=== PATIENT | female | born 1950 | race Caucasian/White ===

== ENCOUNTER 2020-02-11 10:05 | Outpatient (REF) | payer MEDICARE, MEDICAID, SELFPAY | END 2020-02-11 10:06 | disposition home or self-care (01) | LOC: HO.HMGCLDS 10:05 | PROVIDERS: PCP Internal Medicine; Visit Provider Internal Medicine | DX: Z20.828 Contact with and (suspected) exposure to other viral communicable diseases (principal) | CPT/HCPCS: 36415; 87635 ==

== ENCOUNTER 2020-02-21 07:47 | Day surgery (SDC) | payer MEDICARE, MEDICAID, SELFPAY ==
[2020-02-14 14:13] VITALS: BMI 23.8
--- NOTE | 2020-02-19 09:39 | HO.ANESPROP2 ---
Documented by User: Hannahher Sullivanney 02/19/20 09:43 HPI - Anesthesia Eval Consult details Narrative: 69yo F for colonoscopy PMFSH Past Medical History Medical History Anxiety Bronchitis with flu Depression Fibrocystic breast disease GERD (gastroesophageal reflux disease) History of chronic rhinitis Hx of irritable bowel syndrome Hx of osteopenia Lumbar disc disease Neurodermatitis Osteoarthritis Panic disorder PTSD (post-traumatic stress disorder) Surgical History Surgical History H/O colonoscopy with polypectomy Hx of cholecystectomy Hx of tonsillectomy Social History Social History Smoking Status: Never smoker Second Hand Smoke Exposure: No Use of substances other than those prescribed or required for medical reasons: No Advance Directives: No Advance Directives Information Provided: No Advance Directives on File: No Recently lost weight without trying: No Meds Allergies Allergy/AdvReac Type Severity Reaction Status Date / Time alcohol [ALCOHOL] Allergy Unknown ON SKIN - Verified 02/21/20 08:29 HIVES , SWELLING gluten [GLUTEN] Allergy Unknown HIVES Verified 02/21/20 08:29 latex [LATEX] Allergy Unknown HIVES,SWELL Verified 02/21/20 08:29 ING mold Allergy Unknown HIVES Verified 02/21/20 08:29 yeast, dried [YEAST] Allergy Unknown HIVES Verified 02/21/20 08:29 dairy Allergy Unknown Hives Uncoded 02/14/20 13:25 smoked meat Allergy Unknown Hives Uncoded 02/14/20 13:25 Home Medications Medication Instructions Recorded Confirmed Type clonazepam 1 tab PO NEEDED 02/14/20 02/21/20 History famotidine 1 tab PO NEEDED 02/14/20 02/21/20 History zolpidem 1 tab PO BEDTIME PRN 02/14/20 02/14/20 History Exam Exam Date and Time: February 19, 2020 0939 Height,Weight and Vital Signs: Height 5 ft 1.25 in Weight 57.606 kg Pertinent Lab Results Pertinent Lab Results: Laboratory Tests 12/24/19 12/24/19 09:10 09:10 WBC 5.4 Hgb 13.7 Hct 41.9 Plt Count 352 Sodium 141 Potassium 4.1 Chloride 107 BUN 15 Creatinine 0.80 Assessment and Plan Assessment Anesthesia Assessment: Chart Reviewed Documented by User: oNman Flood MD 02/21/20 09:16 PMFSH Past Medical History Medical History Anxiety Bronchitis with flu Depression Fibrocystic breast disease GERD (gastroesophageal reflux disease) History of chronic rhinitis Hx of irritable bowel syndrome Hx of osteopenia Lumbar disc disease Neurodermatitis Osteoarthritis Panic disorder PTSD (post-traumatic stress disorder) Surgical History Surgical History H/O colonoscopy with polypectomy Hx of cholecystectomy Hx of tonsillectomy Social History Social History Smoking Status: Never smoker Second Hand Smoke Exposure: No Use of substances other than those prescribed or required for medical reasons: No Advance Directives: No Advance Directives Information Provided: No Advance Directives on File: No Recently lost weight without trying: No Meds Allergies Allergy/AdvReac Type Severity Reaction Status Date / Time alcohol [ALCOHOL] Allergy Unknown ON SKIN - Verified 02/21/20 08:29 HIVES , SWELLING gluten [GLUTEN] Allergy Unknown HIVES Verified 02/21/20 08:29 latex [LATEX] Allergy Unknown HIVES,SWELL Verified 02/21/20 08:29 ING mold Allergy Unknown HIVES Verified 02/21/20 08:29 yeast, dried [YEAST] Allergy Unknown HIVES Verified 02/21/20 08:29 dairy Allergy Unknown Hives Uncoded 02/14/20 13:25 smoked meat Allergy Unknown Hives Uncoded 02/14/20 13:25 Home Medications Medication Instructions Recorded Confirmed Type clonazepam 1 tab PO NEEDED 02/14/20 02/21/20 History famotidine 1 tab PO NEEDED 02/14/20 02/21/20 History zolpidem 1 tab PO BEDTIME PRN 02/14/20 02/14/20 History Exam Airway Mallampati Class: I TM Dist: >3cm Neck ROM: Full Loose/Missing/Broken Teeth: Yes and Lower Heart: rrr Lungs: nl Assessment and Plan Assessment Anesthesia Assessment: Anesthesia Plan Discussed and Chart Reviewed Final Anesthetic Review NPO: Yes ASA Class: III Final Preanesthetic Review: No Changes in Pt Med Stat, Meds/Allgs Chart Reviewed, Consent Obtained/Reviewed and Anes Risks/Benef Reviewed Patient Risk: Intermediate Procedure Risk: Low Anesthetic Plan Anesthetic Plan: MAC: (Hx of panic d/o but describes side effects related to likely midazolam usage with last anesthetic for colonscopy. Plan for propofol only today) and Epidural Disposition: Standard PACU
[2020-02-21] MEDS: Lactated Ringers 1,000 ML 100 ML IVCONT (08:32)
[2020-02-21 08:33] VITALS: BP 145/72; PULSE 54; RESP 16; TEMP 36.3; O2SAT 98
[2020-02-21 08:36] VITALS: BMI 23.8
--- NOTE | 2020-02-21 09:21 | P.HPSUR_ITS ---
Pre-Procedural Eval Section A The patient is an INPATIENT: No The History & Physical has been completed within 30 days and I have reviewed it.: No Section B Chief Complaint: history of Polyp Details of Present Illness: Colon cancer screening Hx of Tubular adenoma Mother with hx of polyps. Relevant Family History (Specify if Yes): Yes Relevant Social History: None Present Medications: see Short Stay Collaborative assessment Medical History: Significant History (Anxiety, GERD, IBS) History of Previous Operations: Relevant previous surgery/procedure and date(s) (Cholecystectomy, [place]-2015: cecal tubular adenoma) Allergies: Allergies Allergy/AdvReac Type Severity Reaction Status Date / Time alcohol [ALCOHOL] Allergy Unknown ON SKIN - Verified 02/21/20 08:29 HIVES , SWELLING gluten [GLUTEN] Allergy Unknown HIVES Verified 02/21/20 08:29 latex [LATEX] Allergy Unknown HIVES,SWELL Verified 02/21/20 08:29 ING mold Allergy Unknown HIVES Verified 02/21/20 08:29 yeast, dried [YEAST] Allergy Unknown HIVES Verified 02/21/20 08:29 dairy Allergy Unknown Hives Uncoded 02/14/20 13:25 smoked meat Allergy Unknown Hives Uncoded 02/14/20 13:25 Review of Systems Sugical H&P ROS: Negative: Constitution, Cardiovascular and Respiratory and Yes, Specify: Psychiatric and Gastrointestinal (GERD,IBS) Exam Surgical H&P Exam: Normal: HEENT, Normal: Heart, Normal: Lungs, Normal: Extremities and Normal: Abdomen Plan Diagnosis/Plan: Unchanged Patient has been examined and remains a candidate for the planned procedure-YES
[2020-02-21 10:05] VITALS: BP 130/97; PULSE 85; RESP 18; TEMP 36.1; O2SAT 97
[2020-02-21 10:20] VITALS: BP 133/60; PULSE 73; RESP 18; O2SAT 100
--- NOTE | 2020-02-21 10:40 | HO.POSTANES ---
Post Anesthesia Evaluation Post Anesthesia Evaluation Vital Signs: Vital Signs Temp Pulse Resp BP Pulse Ox 02/21/20 10:20 73 18 133/60 100 02/21/20 10:05 97 F 85 18 130/97 H 97 02/21/20 08:33 97.4 F 54 16 145/72 H 98 Anesthesia: Monitored Mental Status: Awake Pain Control: Satisfactory Nausea/Vomiting: None Hydration: Adequate Anesthesia-Related Issues: No Anes. Related Issues
--- NOTE | 2020-02-21 20:29 | OP_ITS ---
SURGEON: Halle James MD PROCEDURE PERFORMED: Colonoscopy. ESTIMATED BLOOD LOSS: No blood loss. COMPLICATIONS: No complications. ANESTHESIA: Monitored. ANESTHESIOLOGIST: Dr. Flood. ASSISTANTS: No assistant to the vice president. SPECIMENS: No specimens removed. PREOPERATIVE DIAGNOSES: History of tubular adenoma. Mother with history of polyps. POSTOPERATIVE DIAGNOSES: Internal hemorrhoids 1+, History of tubular adenoma. AGED OR DISABLED CARE WORKER: Dr. James. FINDINGS: Digital rectal exam revealed no specific lesion; adequate sphincter tone. Video colonoscope was introduced without difficulty. It was navigated into the rectosigmoid and sigmoid. There was mild redundancy and a suggestion prolapse the region of the rectosigmoid and sigmoid. Scope was slowly moved through this area on up through descending, transverse, ascending colon down into the cecal cap. Appendiceal orifice was seen. Ileocecal valve was well seen. Prep on the left side was good. As we passed through the region of the hepatic flexure, there was more sticky bilious residue left, requiring moderate amount of flushing and suctioning. There were no polyps found either in the cecum or ascending colon. The scope slowly withdrawn. Good rotational views. No additional lesions seen on the left side. Anorectal verge was clear. There were 1+ internal hemorrhoids in the anal canal. PLAN AND CURRENT RECOMMENDATIONS: Repeat asymptomatic screening in a patient with history of tubular adenomas and a positive family history will remain at 5 years. GRAFT OR IMPLANTS: No grafts or implants. CONDITION: Postprocedure, stable. Halle James MD MEN/MODL / [id number] MTDD
== END 2020-02-21 10:51 | disposition home or self-care (01) ==
PROVIDERS: Internal Medicine Gastroenterology; PCP Internal Medicine; Visit Provider Internal Medicine
PROC: 0DJD8ZZ Inspection of Lower Intestinal Tract, Via Natural or Artificial Opening Endoscopic (ICD-10-PCS; CPT 45378; principal; 2020-02-21 09:10)
DX: Z12.11 Encounter for screening for malignant neoplasm of colon (principal); Z86.010 Personal history of colon polyps; Z83.71 Family history of colonic polyps; K64.8 Other hemorrhoids; K21.9 Gastro-esophageal reflux disease without esophagitis; K58.9 Irritable bowel syndrome, unspecified; F32.9 Major depressive disorder, single episode, unspecified; F43.10 Post-traumatic stress disorder, unspecified; F41.0 Panic disorder [episodic paroxysmal anxiety]; M19.90 Unspecified osteoarthritis, unspecified site; L28.0 Lichen simplex chronicus; Z90.49 Acquired absence of other specified parts of digestive tract; Z91.040 Latex allergy status; Z91.02 Food additives allergy status; Z91.011 Allergy to milk products; Z91.018 Allergy to other foods
CPT/HCPCS: G0105

== ENCOUNTER → 2020-03-19 11:20 | Outpatient (BNVA) | payer MEDICARE, MEDICAID, SELFPAY | PROVIDERS: PCP Internal Medicine; Referring Provider Internal Medicine; Visit Provider Internal Medicine Gastroenterology | DX: R13.10 Dysphagia, unspecified (principal); R11.10 Vomiting, unspecified; Z98.890 Other specified postprocedural states | CPT/HCPCS: 99212 ==

== ENCOUNTER 2020-03-24 09:14 | Outpatient (REF) | payer MEDICARE, MEDICAID, SELFPAY ==
--- NOTE | 2020-03-24 09:15 | FL_ITS ---
EXAMINATION: FL BARIUM SWALLOW CLINICAL INFORMATION: Vomiting. COMPARISON: Report from 02/08/2007 TECHNIQUE: Barium swallow examination is performed using fluoroscopic evaluation in addition to multiple fluoroscopic spot views. The patient is imaged both upright and prone and using both thick and thin sulfate along with effervescent granules. A 13 mm barium tablet was also utilized. Fluoroscopy time: 1.2 minutes DAP: 3.885 Gycm2 Images: 84 FINDINGS: There is normal oral bolus control and transfer. Normal posterior tilt of the epiglottis with elevation of the hyoid. No cricopharyngeal abnormality. The esophagus was normal in course, caliber, and contour. There was focal narrowing seen at the region of the gastroesophageal junction which causes delayed passage of the 13 mm barium tablet. There was otherwise normal distensibility with no fixed segment of narrowing. No focal mucosal abnormality was identified. No significant esophageal dysmotility was observed. Contrast passed freely across the gastroesophageal junction into the stomach. Small hiatal hernia. Mild gastroesophageal reflux was observed. FL/FL barium swallow IMPRESSION: Mild gastroesophageal reflux with small hiatal hernia. There is focal narrowing at the gastroesophageal junction which cause delayed passage of a 13 mm barium tablet. This persists throughout the examination.
== END 2020-03-24 09:15 | disposition home or self-care (01) ==
LOC: HO.XRAY 09:14
PROVIDERS: PCP Internal Medicine; Visit Provider Internal Medicine Gastroenterology
DX: R11.10 Vomiting, unspecified (principal); R13.10 Dysphagia, unspecified
CPT/HCPCS: 74220

== ENCOUNTER → 2020-04-09 13:44 | Outpatient (BNVA) | payer MEDICARE, MEDICAID, SELFPAY | PROVIDERS: PCP Internal Medicine; Visit Provider Internal Medicine Gastroenterology | DX: R13.10 Dysphagia, unspecified (principal); R11.0 Nausea; Z79.899 Other long term (current) drug therapy | CPT/HCPCS: Q3014 ==

== ENCOUNTER → 2020-06-09 14:36 | Outpatient (BNVA) | payer MEDICARE, MEDICAID, SELFPAY | PROVIDERS: PCP Internal Medicine; Visit Provider Internal Medicine Gastroenterology | CPT/HCPCS: Q3014 ==

== ENCOUNTER 2020-06-17 09:18 | Day surgery (SDC) | payer MEDICARE, MEDICAID, SELFPAY ==
--- NOTE | 2020-06-16 09:47 | HO.ANESPROP2 ---
Documented by User: Hannah Dias 06/16/20 09:48 HPI - Anesthesia Eval Consult details Narrative: 70yo F for Upper Endoscopy PMFSH Active Problems Active Problems: All Active Problems (Updated 06/09/20 @ 15:11 by John Sabillon MD) GERD (gastroesophageal reflux disease) (Acute) Irritable bowel syndrome with constipation (Acute) Tubular adenoma of colon (Acute) Regurgitation of stomach contents (Acute) Dysphagia (Acute) Past Medical History Medical History Anxiety Bronchitis with flu Depression Dysphagia Dysphagia Fibrocystic breast disease GERD (gastroesophageal reflux disease) History of chronic rhinitis Hx of irritable bowel syndrome Hx of osteopenia Lumbar disc disease Neurodermatitis Osteoarthritis Panic disorder PTSD (post-traumatic stress disorder) Tubular adenoma of colon Family History Family History Father Alcoholic Arthritis Mother Schizophrenia Heart failure Brother Hep C w/ coma, chronic Drug addict Cancer Surgical History Surgical History H/O colonoscopy with polypectomy Hx of cholecystectomy Hx of tonsillectomy Social History Social History Alcohol intake: current Alcohol intake frequency: holidays/special occasions only Smoking Status: Never smoker Second Hand Smoke Exposure: No Advance Directives: No Advance Directives Information Provided: Yes Meds Allergies Allergy/AdvReac Type Severity Reaction Status Date / Time alcohol [ALCOHOL] Allergy Unknown ON SKIN - Verified 06/09/20 14:37 HIVES , SWELLING gluten [GLUTEN] Allergy Unknown HIVES Verified 06/09/20 14:37 latex [LATEX] Allergy Unknown HIVES,SWELL Verified 06/09/20 14:37 ING mold Allergy Unknown HIVES Verified 06/09/20 14:37 yeast, dried [YEAST] Allergy Unknown HIVES Verified 06/09/20 14:37 dairy Allergy Unknown Hives Uncoded 02/14/20 13:25 smoked meat Allergy Unknown Hives Uncoded 02/14/20 13:25 Home Medications Medication Instructions Recorded Confirmed Type clonazepam 1 tab PO NEEDED 02/14/20 06/09/20 History famotidine 1 tab PO NEEDED 02/14/20 06/09/20 History zolpidem 1 tab PO BEDTIME PRN 02/14/20 06/09/20 History Exam Exam Date and Time: June 16, 202033 Assessment and Plan Assessment Anesthesia Assessment: Chart Reviewed Documented by User: Arlene Lundberg 06/17/20 10:31 PMFSH Past Medical History Medical History Anxiety Bronchitis with flu Depression Dysphagia Dysphagia Fibrocystic breast disease GERD (gastroesophageal reflux disease) History of chronic rhinitis Hx of irritable bowel syndrome Hx of osteopenia Lumbar disc disease Neurodermatitis Osteoarthritis Panic disorder PTSD (post-traumatic stress disorder) Tubular adenoma of colon Family History Family History Father Alcoholic Arthritis Mother Schizophrenia Heart failure Brother Hep C w/ coma, chronic Drug addict Cancer Surgical History Surgical History H/O colonoscopy with polypectomy Hx of cholecystectomy Hx of tonsillectomy Social History Social History Alcohol intake: current Alcohol intake frequency: holidays/special occasions only Smoking Status: Never smoker Second Hand Smoke Exposure: No Advance Directives: No Advance Directives Information Provided: Yes Meds Allergies Allergy/AdvReac Type Severity Reaction Status Date / Time alcohol [ALCOHOL] Allergy Unknown ON SKIN - Verified 06/09/20 14:37 HIVES , SWELLING gluten [GLUTEN] Allergy Unknown HIVES Verified 06/09/20 14:37 latex [LATEX] Allergy Unknown HIVES,SWELL Verified 06/09/20 14:37 ING mold Allergy Unknown HIVES Verified 06/09/20 14:37 yeast, dried [YEAST] Allergy Unknown HIVES Verified 06/09/20 14:37 dairy Allergy Unknown Hives Uncoded 02/14/20 13:25 smoked meat Allergy Unknown Hives Uncoded 02/14/20 13:25 Home Medications Medication Instructions Recorded Confirmed Type clonazepam 1 tab PO NEEDED 02/14/20 06/09/20 History famotidine 1 tab PO NEEDED 02/14/20 06/09/20 History zolpidem 1 tab PO BEDTIME PRN 02/14/20 06/09/20 History Exam Airway Mallampati Class: II (Small mouth) TM Dist: >3cm Neck ROM: Full Heart: RRR Lungs: CTA Assessment and Plan Assessment Anesthesia Assessment: Anesthesia Plan Discussed and Chart Reviewed Final Anesthetic Review NPO: Yes ASA Class: II Final Preanesthetic Review: Meds/Allgs Chart Reviewed, Consent Obtained/Reviewed and Anes Risks/Benef Reviewed Patient Risk: Low Procedure Risk: Intermediate Anesthetic Plan Anesthetic Plan: MAC: Disposition: Standard PACU
[2020-06-17 10:37] VITALS: BP 184/92; PULSE 51; RESP 16; TEMP 36.2; O2SAT 98; BMI 23.7
[2020-06-17] MEDS: Lactated Ringers 1,000 ML 100 ML IVCONT (10:44)
--- NOTE | 2020-06-17 11:26 | MHC.SHP ---
Pre-Procedural Eval Section B Chief Complaint: dysphagia Allergies: Allergies Allergy/AdvReac Type Severity Reaction Status Date / Time alcohol [ALCOHOL] Allergy Unknown ON SKIN - Verified 06/09/20 14:37 HIVES , SWELLING gluten [GLUTEN] Allergy Unknown HIVES Verified 06/09/20 14:37 latex [LATEX] Allergy Unknown HIVES,SWELL Verified 06/09/20 14:37 ING mold Allergy Unknown HIVES Verified 06/09/20 14:37 yeast, dried [YEAST] Allergy Unknown HIVES Verified 06/09/20 14:37 dairy Allergy Unknown Hives Uncoded 02/14/20 13:25 smoked meat Allergy Unknown Hives Uncoded 02/14/20 13:25 Plan I have reviewed the history and physical and performed a pertinent (PATIENT SAYS MOUTH IS DRY IN am physical examination on my patient. No changes have occurred unless specified.YES--
[2020-06-17 11:48] VITALS: BP 129/58; PULSE 52; RESP 18; TEMP 36.3; O2SAT 100
--- NOTE | 2020-06-17 11:57 | PM.PROC ---
Brief Operative Note Date of procedure: 06/17/20 Pre-op diagnosis: DYSPHAGIA Post-op diagnosis: other (SMALL HIATAL HERNIA, fOCAL HEMORRHAGIC GASTRITIS (BILE PRESENT IN STOMACH)) Procedure: EGD WITH BX FINDINGS: SCOPE PASSED EASILY. VOCAL CORDS CLEAR, AC-NORMAL ESOPH SUGGESTION TERTIARY CONTRACTIONS GE JUNCTION-CLEAR--SMALL HIATAL HERNIA STOMACH: SPOTTY COFFEE GRND FLECKING BX DONE (BILE PRESENT) DUODENAL BULB/DUODENUM:--? VILLOUS BLUNTING--BX DONE Anesthesia: MAC (MD CAMILLA) Surgeon: Halle James Estimated blood loss (mL): 5 Pathology: other (DUODENAL, GASTRIC) Condition: stable Disposition: PACU
[2020-06-17 12:05] VITALS: BP 144/80; PULSE 55; RESP 20; TEMP 36.1; O2SAT 98
== END 2020-06-17 12:43 | disposition home or self-care (01) ==
PROVIDERS: PCP Internal Medicine; Visit Provider Internal Medicine Gastroenterology
PROC: 0DJ08ZZ Inspection of Upper Intestinal Tract, Via Natural or Artificial Opening Endoscopic (ICD-10-PCS; CPT 43235; principal; 2020-06-17 11:30)
DX: R13.10 Dysphagia, unspecified (principal); K44.9 Diaphragmatic hernia without obstruction or gangrene; Z87.19 Personal history of other diseases of the digestive system
CPT/HCPCS: 43239; 88305; 88342

== ENCOUNTER 2020-06-23 14:08 | Outpatient (REF) | payer MEDICARE, MEDICAID, SELFPAY ==
--- NOTE | ~2020-06-23 | MM_ITS ---
EXAMINATION: MM SCREENING DIGITAL BREAST TOMOSYNTHESIS, BILATERAL CLINICAL INFORMATION: Screening. Asymptomatic. The lifetime risk of breast cancer based on the Tyrer-Cuzick Model is 5%. COMPARISON: Mammography: 06/13/2019, 04/21/2018, 04/19/2017 TECHNIQUE: Digital breast tomosynthesis is performed in both the craniocaudal and mediolateral oblique views along with computer-aided detection (CAD). Synthesized 2D images are generated from the tomosynthesis. FINDINGS: There are scattered areas of fibroglandular density (ACR BI-RADS breast composition Category b). There are no significant masses, abnormal calcifications, or other abnormalities. Again, there is dermal lesion overlying the lower outer right breast. Intramammary node again seen outer left breast and outer right breast. MM/MM tomosynthesis screening BI IMPRESSION: No mammographic evidence of malignancy. ASSESSMENT: BI-RADS 2: Benign RECOMMENDATION: Routine annual mammography screening. This patient's information was entered into a reminder system with a target due date for their next mammogram.
== END 2020-06-23 14:09 | disposition home or self-care (01) ==
LOC: HO.MAMMO 14:08
PROVIDERS: PCP Internal Medicine; Visit Provider Internal Medicine
DX: Z12.31 Encounter for screening mammogram for malignant neoplasm of breast (principal)
CPT/HCPCS: 77063; 77067

== ENCOUNTER → 2020-07-03 12:45 | Outpatient (BNVA) | payer MEDICARE, MEDICAID, SELFPAY | PROVIDERS: PCP Internal Medicine; Visit Provider Internal Medicine Gastroenterology | CPT/HCPCS: Q3014 ==

== ENCOUNTER 2020-07-07 08:18 | Outpatient (REF) | payer MEDICARE, MEDICAID, SELFPAY ==
[2020-07-07 09:55] LABS: Alanine Aminotransferase 15 U/L (0-31); Albumin Level 4.2 g/dL (3.5-5.0); Alkaline Phosphatase 53 U/L (39-117); Aspartate Amino Transferase 24 U/L (5-31); Bilirubin Direct 0.2 mg/dL (0.0-0.5); Bilirubin Total 0.6 mg/dL (0.0-1.0); Cholesterol 220 mg/dL; HDL Cholesterol 81 mg/dL; LDL Cholesterol Calculated 127 mg/dl; Total Protein 7.2 g/dL (6.5-8.0); Triglycerides 61 mg/dL
== END 2020-07-07 08:19 | disposition home or self-care (01) ==
LOC: HO.LAB 08:18
PROVIDERS: PCP Internal Medicine; Visit Provider Internal Medicine
DX: F31.9 Bipolar disorder, unspecified (principal); G47.00 Insomnia, unspecified; K58.9 Irritable bowel syndrome, unspecified; E78.00 Pure hypercholesterolemia, unspecified; E55.9 Vitamin D deficiency, unspecified
CPT/HCPCS: 36415; 80061; 80076

== ENCOUNTER 2020-07-11 08:06 | Outpatient (REF) | payer MEDICARE, MEDICAID, SELFPAY | END 2020-07-11 08:07 | disposition home or self-care (01) | LOC: HO.LAB 08:06 | PROVIDERS: PCP Internal Medicine; Visit Provider Internal Medicine | DX: Z20.822 Contact with and (suspected) exposure to COVID-19 (principal) | CPT/HCPCS: 36415; C9803; U0003; U0005 ==

== ENCOUNTER → 2020-09-04 09:18 | Outpatient (BNVA) | payer MEDICARE, MEDICAID, SELFPAY | PROVIDERS: PCP Internal Medicine; Visit Provider Nurse Practitioner | DX: Z13.89 Encounter for screening for other disorder (principal) | CPT/HCPCS: Q3014 ==

== ENCOUNTER 2020-09-13 10:01 | Outpatient (REF) | payer MEDICARE, MEDICAID, SELFPAY ==
[2020-09-13 14:00] LABS: MANUAL DIFF FLAG NO
[2020-09-13 14:01] LABS: Glucose Urine UA NEG (NEG); Leukocyte Esterase Urine NEG (NEG); Nitrite Urine NEG (NEG); Specific Gravity - Urine 1.015 (1.005-1.025); Urine Blood NEG (NEG); Urine Ketones NEG (NEG); Urine Protein NEG (NEG-TRACE)
[2020-09-13 14:02] LABS: Appearance Urine CLEAR; Color Urine YELLOW
[2020-09-13 14:03] LABS: Basophils Absolute Auto 0.1 X10*3/uL (0.0-0.2); Eosinophils Absolute Auto 0.1 X10*3/uL (0.0-0.4); Eosinophils Percent Auto 1.2 % (0-4); Hematocrit 41.4 % (37-47); Hemoglobin 13.3 g/dl (12.0-16.0); Imm Gran Abs Auto 0.02 X10*3/uL (0.00-0.03); Imm Gran Pct Auto 0.3 % (0.0-0.4); Lymphocytes Absolute Auto 2.2 X10*3/uL (1.2-4.9); Lymphocytes Percent Auto 36.8 % (20-40); Mean Corpuscular HGB Conc 32.1 g/dl (31.0-35.0); Mean Corpuscular Hemoglobin 30.1 pg (27.0-33.0); Mean Corpuscular Volume 93.7 fL (80-98); Mean Platelet Volume 10.9 fL (9.4-12.3); Monocytes Absolute Auto 0.5 X10*3/uL (0.1-1.2); Monocytes Percent Auto 7.8 % (2-11); Neutrophils Absolute Auto 3.1 X10*3/uL (2.0-8.3); Neutrophils Percent Auto 52.9 % (45-73); Platelet Count 333 X10*3/uL (160-400); Red Blood Count 4.42 X10*6/uL (4.20-5.50); Red Cell Distribution Width 12.8 % (11.0-16.0); White Blood Count 5.9 X10*3/uL (4.8-10.8)
[2020-09-13 14:16] LABS: RBC Urine 0-2 /HPF (0); WBC Urine 0 /HPF (0-4)
[2020-09-13 14:24] LABS: Alanine Aminotransferase 16 U/L (0-31); Albumin Level 4.2 g/dL (3.5-5.0); Alkaline Phosphatase 61 U/L (39-117); Anion Gap 11 (12-20); Aspartate Amino Transferase 23 U/L (5-31); Bilirubin Total 0.5 mg/dL (0.0-1.0); Blood Urea Nitrogen 17 mg/dL (9-16); Calcium 9.4 mg/dL (8.4-10.2); Carbon Dioxide 29 mmol/L (22-29); Chloride 104 mmol/L (96-108); Estimated Glomerular Filt Rate > 60; Glucose Random 78 mg/dL (60-115); Potassium 4.1 mmol/L (3.3-5.1); Sodium 140 mmol/L (135-145); Total Protein 7.4 g/dL (6.5-8.0)
[2020-09-13 14:44] LABS: Thyroid Stimulating Hormone 1.81 uIU/mL (0.32-4.0)
[2020-09-15 09:44] LABS: Vitamin B12 508 pg/mL (200-900)
== END 2020-09-13 10:02 | disposition home or self-care (01) ==
LOC: HO.LAB 10:01
PROVIDERS: PCP Internal Medicine; Visit Provider Internal Medicine
DX: R42 Dizziness and giddiness (principal)
CPT/HCPCS: 36415; 80053; 81001; 82607; 82746; 84443; 85025

== ENCOUNTER → 2020-11-04 09:43 | Outpatient (BNVA) | payer MEDICARE, MEDICAID, SELFPAY | PROVIDERS: PCP Internal Medicine; Visit Provider Nurse Practitioner | CPT/HCPCS: Q3014 ==

== ENCOUNTER 2020-12-03 10:47 | Outpatient (REF) | payer MEDICARE, MEDICAID, SELFPAY ==
--- NOTE | ~2020-12-03 | CT_ITS ---
EXAMINATION: CT HEAD WITHOUT CONTRAST CLINICAL INFORMATION: Encephalopathy. COMPARISON: None TECHNIQUE: Contiguous axial imaging was performed from the skull base to vertex without intravenous administration of contrast. This CT examination was performed using dose optimization techniques as appropriate, variously including the following: *Automated exposure control *Adjustment of mA and/or kV according to patient size (this includes techniques or standardized protocols for targeted exams where dose is matched to indication/reason for exam; i.e. extremities or head) *Use of iterative reconstruction technique DLP: 675 mGy-cm FINDINGS: There is no evidence of acute intracranial hemorrhage or territorial infarction. No abnormal mass effect or midline shift is seen. Tatum to white matter differentiation is well preserved. No extra-axial fluid collections are identified. The ventricles are symmetrical and normal size. The cortical sulci are normal. The osseous structures and soft tissues are normal. The mastoid air cells and visualized portions of the paranasal sinuses are well aerated. CT/CT head/brain wo con IMPRESSION: No acute intracranial process seen..
== END 2020-12-03 10:48 | disposition home or self-care (01) ==
LOC: HO.CT 10:47
PROVIDERS: Visit Provider Psychiatry & Neurology Neurology
DX: G93.40 Encephalopathy, unspecified (principal)
CPT/HCPCS: 70450

== ENCOUNTER → 2020-12-15 15:04 | Outpatient (BNVA) | payer MEDICARE, MEDICAID, SELFPAY | PROVIDERS: PCP Internal Medicine; Visit Provider Nurse Practitioner | DX: K21.9 Gastro-esophageal reflux disease without esophagitis (principal); K58.2 Mixed irritable bowel syndrome; D12.6 Benign neoplasm of colon, unspecified; R13.10 Dysphagia, unspecified; R11.10 Vomiting, unspecified | CPT/HCPCS: Q3014 ==

== ENCOUNTER → 2021-01-19 09:17 | Outpatient (BNVA) | payer MEDICARE, MEDICAID, SELFPAY | PROVIDERS: PCP Internal Medicine; Visit Provider Nurse Practitioner | CPT/HCPCS: Q3014 ==

== ENCOUNTER 2021-01-20 10:43 | Outpatient (REF) | payer MEDICARE, MEDICAID, SELFPAY ==
--- NOTE | ~2021-01-20 | MM_ITS ---
EXAMINATION: BONE DENSITOMETRY CLINICAL INDICATION: Other specified disorders of bone density and structure. COMPARISON: None (current study represents initial baseline exam). TECHNIQUE: Using a [employer] DXA System (software version: 13.1) manufactured by [employer], dual-energy x-ray absorptiometry was performed of the lumbar spine and left hip. The images are of good technical quality. Summary results are attached. FINDINGS: AP SPINE L1-L4: BMD 1.040 g/cm2, Z-score 0.7, T-score -1.2, osteopenia. LEFT FEMUR, NECK: BMD 0.680 g/cm2, Z-score -0.7, T-score -2.6, osteoporosis. LEFT FEMUR, TOTAL: BMD 0.700 g/cm2, Z-score -0.8, T-score -2.4, osteopenia. IDENTIFIED RISK FACTORS: Menopause, osteoporosis. HISTORY OF FRACTURE: None listed. MEDICATIONS: Vitamin D. MM/XR DEXA axial skeleton IMPRESSION: 1. DIAGNOSIS: Osteoporosis based on the lowest T-score value of -2.6 in the femoral neck applying World Health Organization criteria. 2. 10-YEAR FRACTURE RISK PREDICTION, FRAX: Major osteoporotic fracture (clinical spine, forearm, hip or shoulder) 16.3%. Hip fracture 4.7%. 3. Treatment Recommendations: NOF guidelines recommend consideration for treatment in postmenopausal women and men age 50 and older presenting with the following: -A hip or vertebral (clinical or morphometric) fracture. -T-score less than or equal to -2.5 at the femoral neck or spine after appropriate evaluation to exclude secondary causes. -Low bone mass at the hip or spine and a 10-year fracture probability by FRAX of greater than or equal to 3% for hip fracture or greater than or equal to 20% for major osteoporotic fracture based on the [place] adapted WHO algorithm. 4. Other Recommendations: All treatment decisions require clinical judgment and consideration of individual patient factors, including patient preferences, comorbidities, previous drug use, risk factors not captured in the FRAX model (e.g. frailty, falls, vitamin D deficiency, increased bone turnover, interval significant decline in bone density) and possible under or overestimation of fracture risk by FRAX. Additional medical evaluation for secondary cause of low bone mineral density may be appropriate. FUTURE SCAN RECOMMENDATION: People with diagnosed cases of osteoporosis or at high risk for fracture should have regular bone mineral density tests. For patients eligible for Medicare, routine testing is allowed once every 2 years. The testing frequency can be increased to one year for patients who have rapidly progressing disease, those who are receiving or discontinuing medical therapy to restore bone mass, or have additional risk factors.
== END 2021-01-20 10:44 | disposition home or self-care (01) ==
LOC: HO.MAMMO 10:43
PROVIDERS: PCP Internal Medicine; Visit Provider Internal Medicine
DX: Z13.820 Encounter for screening for osteoporosis (principal); Z78.0 Asymptomatic menopausal state; M85.80 Other specified disorders of bone density and structure, unspecified site; Z79.899 Other long term (current) drug therapy
CPT/HCPCS: 77080

== ENCOUNTER 2021-01-22 18:09 | Emergency (ER) | payer MEDICARE, MEDICAID, SELFPAY ==
--- NOTE | ~2021-01-22 | XR_ITS ---
EXAMINATION: XR WRIST, RIGHT CLINICAL INFORMATION: Posterior wrist COMPARISON: None TECHNIQUE: PA, lateral, oblique, and scaphoid views of the right wrist. FINDINGS: The bones and soft tissues are normal. No fracture. Alignment is anatomic with normal joint spaces. No erosions or abnormal soft tissue calcifications. XR/XR wrist RT 2V IMPRESSION: Normal right wrist.
[2021-01-22 18:30] VITALS: BP 190/87; PULSE 59; RESP 18; TEMP 36.3; O2SAT 98; BMI 24.7
--- NOTE | 2021-01-22 21:23 | PC.NURSE ---
pT STATES SHE DOES NOT WANT EKG OR BLOOD WORK, ONLY TO FIND OUT IF ANYTHING IS WRONG WITH HER WRIST AND GO HOME
--- NOTE | 2021-01-22 21:34 | PC.NURSE ---
PT REFUSING HER EKG SHE STATES SHE JUST WANTS TO BE SEEN FOR HER WRIST AND WANTS TO GO HOME. PT STATES HER ELDERLY GIRFRIEND IS HAS TO PICK HER UP AND NEEDS TO TAKE HER MEDICATION.
--- NOTE | 2021-01-22 21:56 | PC.NURSE ---
PT LEFT BECAUSE HER GIRLFRIEND NEED TO GO TO BED.
== END 2021-01-22 21:58 | disposition left against medical advice (07) ==
PROVIDERS: Emergency Provider Emergency Medicine; PCP Internal Medicine
DX: M25.531 Pain in right wrist (principal)
CPT/HCPCS: 73100; 99283

== ENCOUNTER 2021-06-25 11:11 | Outpatient (REF) | payer MEDICARE, MEDICAID, SELFPAY ==
--- NOTE | ~2021-06-25 | MM_ITS ---
EXAMINATION: MM SCREENING DIGITAL BREAST TOMOSYNTHESIS, BILATERAL CLINICAL INFORMATION: Screening. Asymptomatic. The lifetime risk of breast cancer based on the Tyrer-Cuzick Model is 4%. COMPARISON: Mammography: 06/23/2020, 06/13/2019, 04/21/2018 TECHNIQUE: Digital breast tomosynthesis is performed in both the craniocaudal and mediolateral oblique views along with computer-aided detection (CAD). Synthesized 2D images are generated from the tomosynthesis. FINDINGS: There are scattered areas of fibroglandular density (ACR BI-RADS breast composition Category b). There are no significant masses, abnormal calcifications, or other abnormalities. Parenchymal pattern is similar to prior studies. There is no developing density or architectural abnormality. There are stable small intramammary nodes again noted bilateral outer breasts. The axilla and skin contours are unremarkable. No significant changes. MM/MM tomosynthesis screening BI IMPRESSION: No mammographic evidence of malignancy. ASSESSMENT: BI-RADS 2: Benign RECOMMENDATION: Routine annual mammography screening. This patient's information was entered into a reminder system with a target due date for their next mammogram.
== END 2021-06-25 11:12 | disposition home or self-care (01) ==
LOC: HO.MAMMO 11:11
PROVIDERS: PCP Internal Medicine; Visit Provider Internal Medicine
DX: Z12.31 Encounter for screening mammogram for malignant neoplasm of breast (principal)
CPT/HCPCS: 77063; 77067

== ENCOUNTER → 2021-08-28 10:18 | Outpatient (BNVA) | payer MEDICARE, MEDICAID, SELFPAY | PROVIDERS: PCP Internal Medicine; Referring Provider Internal Medicine; Visit Provider Nurse Practitioner | DX: K21.9 Gastro-esophageal reflux disease without esophagitis (principal); K58.2 Mixed irritable bowel syndrome; D12.6 Benign neoplasm of colon, unspecified | CPT/HCPCS: 99212 ==

== ENCOUNTER → 2021-11-26 11:14 | Outpatient (BNVA) | payer MEDICARE, MEDICAID, SELFPAY | PROVIDERS: PCP Internal Medicine; Visit Provider Surgery Vascular Surgery | DX: I83.11 Varicose veins of right lower extremity with inflammation (principal) | CPT/HCPCS: 99202 ==

== ENCOUNTER 2021-12-24 08:10 | Outpatient (REF) | payer MEDICARE, MEDICAID, SELFPAY ==
--- NOTE | 2021-12-24 08:13 | EMG_ITS ---
Bilateral median and ulnar motor and sensory studies were performed and bilateral radial sensory studies were performed. The patient refused to have needle examination. IMPRESSION: 1. [id number] bilateral median neuropathy across carpal tunnel. 2. Mild bilateral ulnar neuropathy across cubital tunnel. 3. Without EMG, cervical radiculopathy could not be ruled out. MD MATTHEW Meza/COLTON / [id number]
== END 2021-12-24 08:11 | disposition home or self-care (01) ==
LOC: HO.NEURO 08:10
PROVIDERS: Visit Provider Internal Medicine
DX: R20.0 Anesthesia of skin (principal)
CPT/HCPCS: 95911

== ENCOUNTER → 2021-12-29 10:14 | Outpatient (BNVA) | payer MEDICARE, MEDICAID, SELFPAY | PROVIDERS: PCP Internal Medicine; Visit Provider Psychiatry & Neurology Neurology | DX: G56.03 Carpal tunnel syndrome, bilateral upper limbs (principal); R25.9 Unspecified abnormal involuntary movements; G51.4 Facial myokymia; G47.00 Insomnia, unspecified | CPT/HCPCS: 99202 ==

== ENCOUNTER 2022-01-28 10:17 | Outpatient (REF) | payer MEDICARE, MEDICAID, SELFPAY ==
--- NOTE | ~2022-01-28 | US_ITS ---
EXAMINATION: Bilateral LOWER EXTREMITY VENOUS ULTRASOUND (Reflux Exam) CLINICAL INDICATION: COMPARISON: None. TECHNIQUE: Color flow triplex imaging and compression Doppler was performed to evaluate both the deep and the superficial systems of the lower extremities, bilaterally. To evaluate the superficial system, the examination was performed in the upright position. Color-flow Doppler ultrasound and compression ultrasound were utilized. In addition, maneuvers were utilized to demonstrate reflux. FINDINGS: RIGHT: 1. DEEP VENOUS DOPPLER ULTRASOUND: Common Femoral Vein: Compressible, normal respiratory variation and augmented flow. Femoral vein: Compressible, normal color flow and augmentation. Popliteal Vein: Compressible, normal augmentation. Deep Reflux: There is no evidence of reflux in the deep system in either the common femoral vein or the popliteal vein. There is no evidence of a East's cyst. 2. SUPERFICIAL VENOUS DOPPLER ULTRASOUND: GREAT SAPHENOUS VEIN: Saphenofemoral junction: 0.5 cm; No evidence of reflux. Proximal thigh: 0.3 cm; No evidence of reflux. Mid thigh: 0.2 cm; No evidence of reflux. Above knee: 0.2 cm; No evidence of reflux. At knee: 0.2 cm; No evidence of reflux. Below knee: 0.2 cm; No evidence of reflux. Mid calf: 0.1 cm; No evidence of reflux. Ankle: 0.2 cm; No evidence of reflux. DUPLICATED GREAT SAPHENOUS VEIN: Lateral: Saphenofemoral junction: 0.3 cm; No evidence of reflux. Mid thigh: 0.2 cm; No evidence of reflux. SMALL SAPHENOUS VEIN: Saphenopopliteal junction: 0.1 cm; No evidence of reflux. Mid calf: 0.1 cm; No evidence of reflux. Distal calf: 0.1 cm; No evidence of reflux. VEIN OF GIACOMINI: None Imaged. PERFORATORS: None Imaged VARICOSITIES: None Imaged LEFT: 1. DEEP VENOUS DOPPLER ULTRASOUND: Common Femoral Vein: Compressible, normal respiratory variation and augmented flow. Femoral vein: Compressible, normal color flow and augmentation. Popliteal Vein: Compressible, normal augmentation. Deep Reflux: There is no evidence of reflux in the deep system in either the common femoral vein or the popliteal vein. There is no evidence of a East's cyst. 2. SUPERFICIAL VENOUS DOPPLER ULTRASOUND: GREAT SAPHENOUS VEIN: Saphenofemoral junction: 0.6 cm; No evidence of reflux. Proximal thigh: 0.3 cm; No evidence of reflux. Mid thigh: 0.2 cm; No evidence of reflux. Above knee: 0.2 cm; No evidence of reflux. At knee: 0.2 cm; No evidence of reflux. Below knee: 0.2 cm; No evidence of reflux. Mid calf: 0.1 cm; No evidence of reflux. Ankle: 0.2 cm; No evidence of reflux. DUPLICATED GREAT SAPHENOUS VEIN: Lateral: Saphenofemoral junction: 0.2 cm; No evidence of reflux. Mid thigh: 0.2 cm; No evidence of reflux. SMALL SAPHENOUS VEIN: Saphenopopliteal junction: 0.2 cm; No evidence of reflux. Mid calf: 0.1 cm; No evidence of reflux. Distal calf: 0.1 cm; No evidence of reflux. VEIN OF GIACOMINI: None Imaged. PERFORATORS: None Imaged VARICOSITIES: None Imaged US/US venous duplex LE BI IMPRESSION: No evidence of reflux.
== END 2022-01-28 10:18 | disposition home or self-care (01) ==
LOC: HO.US 10:17
PROVIDERS: Visit Provider Surgery Vascular Surgery
DX: I83.11 Varicose veins of right lower extremity with inflammation (principal)
CPT/HCPCS: 93970

== ENCOUNTER → 2022-02-11 10:42 | Outpatient (BNVA) | payer MEDICARE, MEDICAID, SELFPAY | PROVIDERS: PCP Internal Medicine; Visit Provider Surgery Vascular Surgery | DX: I83.11 Varicose veins of right lower extremity with inflammation (principal) | CPT/HCPCS: 99212 ==

== ENCOUNTER 2022-02-25 08:10 | Outpatient (REF) | payer MEDICARE, MEDICAID, SELFPAY ==
[2022-02-25 09:15] LABS: Hematocrit 42.2 % (37.0-47.0); Hemoglobin 14.1 g/dl (12.0-16.0); Mean Corpuscular HGB Conc 33.4 g/dl (31.0-35.0); Mean Corpuscular Hemoglobin 30.2 pg (27.0-33.0); Mean Corpuscular Volume 90.4 fL (80.0-98.0); Mean Platelet Volume 10.3 fL (9.4-12.3); Platelet Count 322 X10*3/uL (160-400); Red Blood Count 4.67 X10*6/uL (4.20-5.50); Red Cell Distribution Width 12.7 % (11.0-16.0); White Blood Count 5.7 X10*3/uL (4.8-10.8)
[2022-02-25 10:00] LABS: Alanine Aminotransferase 20 U/L (0-31); Albumin Level 4.2 g/dL (3.5-5.0); Alkaline Phosphatase 58 U/L (39-117); Anion Gap 13 (12-20); Aspartate Amino Transferase 27 U/L (5-31); Bilirubin Total 0.3 mg/dL (0.0-1.0); Blood Urea Nitrogen 22 mg/dL (9-16); Carbon Dioxide 25 mmol/L (22-29); Chloride 106 mmol/L (96-108); Cholesterol 232 mg/dL; Estimated Glomerular Filt Rate > 60; Glucose Fasting 86 mg/dL (60-99); HDL Cholesterol 85 mg/dL; LDL Cholesterol Calculated 136 mg/dl; Magnesium 2.1 mg/dL (1.6-2.6); Potassium 4.3 mmol/L (3.3-5.1); Sodium 140 mmol/L (135-145); Total Protein 7.3 g/dL (6.5-8.0); Triglycerides 58 mg/dL
[2022-02-25 10:01] LABS: Ferritin 82 ng/mL (10-250); TSH reflex Free T4 2.03 uIU/mL (0.32-4.0); Vitamin D 25-OH Total 24.4 ng/mL (>30)
[2022-02-25 10:09] LABS: Erythrocyte Sedimentation Rate 17 MM/HR (0-20)
[2022-02-25 10:44] LABS: Folate 15.2 ng/mL (> or = 4.0); Vitamin B12 448 pg/mL (200-900)
== END 2022-02-25 08:11 | disposition home or self-care (01) ==
LOC: HO.LAB 08:10
PROVIDERS: PCP Internal Medicine; Visit Provider Internal Medicine
DX: G51.4 Facial myokymia (principal); K21.9 Gastro-esophageal reflux disease without esophagitis; E78.00 Pure hypercholesterolemia, unspecified; Z13.1 Encounter for screening for diabetes mellitus
CPT/HCPCS: 36415; 80053; 80061; 82306; 82607; 82728; 82746; 83735; 84443; 85027; 85652

== ENCOUNTER → 2022-03-19 10:27 | Outpatient (BNVA) | payer MEDICARE, MEDICAID, SELFPAY | PROVIDERS: PCP Internal Medicine; Visit Provider Nurse Practitioner | DX: K58.2 Mixed irritable bowel syndrome (principal); K21.9 Gastro-esophageal reflux disease without esophagitis | CPT/HCPCS: 99212 ==

== ENCOUNTER 2022-06-29 10:46 | Outpatient (REF) | payer MEDICARE, MEDICAID, SELFPAY ==
--- NOTE | ~2022-06-29 | MM_ITS ---
EXAMINATION: MM SCREENING DIGITAL BREAST TOMOSYNTHESIS, BILATERAL CLINICAL INFORMATION: Screening. Asymptomatic. The lifetime risk of breast cancer based on the Tyrer-Cuzick Model is 4%. COMPARISON: Mammography: June 25, 2021 and studies dating back to February 08, 2012 TECHNIQUE: Digital breast tomosynthesis is performed in both the craniocaudal and mediolateral oblique views along with computer-aided detection (CAD). Synthesized 2D images are generated from the tomosynthesis. FINDINGS: There are scattered areas of fibroglandular density (ACR BI-RADS breast composition Category b). There are no significant masses, abnormal calcifications, or other abnormalities. MM/MM tomosynthesis screening BI IMPRESSION: No significant changes from prior exam. ASSESSMENT: BI-RADS 1: Negative RECOMMENDATION: Routine annual mammography screening. This patient's information was entered into a reminder system with a target due date for their next mammogram.
== END 2022-06-29 10:47 | disposition home or self-care (01) ==
LOC: HO.MAMMO 10:46
PROVIDERS: PCP Internal Medicine; Visit Provider Internal Medicine
DX: Z12.31 Encounter for screening mammogram for malignant neoplasm of breast (principal)
CPT/HCPCS: 77063; 77067

== ENCOUNTER → 2022-07-28 09:59 | Outpatient (BNVA) | payer MEDICARE, MEDICAID, SELFPAY | PROVIDERS: PCP Internal Medicine; Visit Provider Internal Medicine | DX: K58.1 Irritable bowel syndrome with constipation (principal); R06.02 Shortness of breath | CPT/HCPCS: 99212 ==

== ENCOUNTER → 2022-08-19 10:58 | Outpatient (BNVA) | payer MEDICARE, MEDICAID, SELFPAY | PROVIDERS: PCP Internal Medicine; Visit Provider Nurse Practitioner | DX: K58.2 Mixed irritable bowel syndrome (principal); K21.9 Gastro-esophageal reflux disease without esophagitis; Z86.010 Personal history of colon polyps | CPT/HCPCS: 99212 ==

== ENCOUNTER 2022-11-17 09:58 | Outpatient (REF) | payer MEDICARE, MEDICAID, SELFPAY ==
--- NOTE | ~2022-11-17 | XR_ITS ---
EXAMINATION: XR CHEST CLINICAL INFORMATION: Cough COMPARISON: None available. TECHNIQUE: 2 views of the chest were obtained. FINDINGS: No significant abnormality is noted involving the heart, lungs, mediastinum, bony thorax or soft tissues. XR/XR chest 2V IMPRESSION: Unremarkable examination.
== END 2022-11-17 09:59 | disposition home or self-care (01) ==
LOC: HO.XRAY 09:58
PROVIDERS: PCP Internal Medicine; Visit Provider Internal Medicine
DX: R06.02 Shortness of breath (principal); R05.9 Cough, unspecified
CPT/HCPCS: 71046; 99202

== ENCOUNTER 2022-11-17 09:58 | Outpatient (AMB) | payer MEDICARE, MEDICAID, SELFPAY ==
[2022-11-17 10:11] VITALS: BP 102/70; PULSE 52; O2SAT 100
--- NOTE | 2022-11-17 10:11 | A.OFFVIS_ITS ---
Intake Vital Signs 11/17/22 10:11 Height 5 ft BP 102/70 Blood Pressure Location Lt brachial Position Standing Pulse 52 Pulse Source Pulse Oximeter Pulse Oximetry (%) 100 Oxygen Delivery Method Room Air Intake Visit Reasons: Shortness of breath Intake Note: pt is here as a new patient referred by GI for a lung rule out for GI vs lung. 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 pt does not want invasive testing, no x-rays. She states she has a running feeling water in the chest. 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 Allergies alcohol [ALCOHOL] Allergy (Unknown, Verified 11/17/22 10:48) ON SKIN - HIVES , SWELLING gluten [GLUTEN] Allergy (Unknown, Verified 11/17/22 10:48) HIVES latex [LATEX] Allergy (Unknown, Verified 11/17/22 10:48) HIVES,SWELLING mold Allergy (Unknown, Verified 11/17/22 10:48) HIVES yeast, dried [YEAST] Allergy (Unknown, Verified 11/17/22 10:48) HIVES dairy Allergy (Mild, Uncoded 11/17/22 10:48) Hives smoked meat Allergy (Mild, Uncoded 11/17/22 10:48) Hives Medication List - Last Reconciled 11/17/22 by Duc Gomez MD betamethasone dipropionate 0.05% appl topical clonazepam .25 tablet PO as needed; usually once Q 2 weeks [left wrist splint As directed] [id number] 6,000-19,000 -30,000 unit (Creon) 1 cap PO .TIDAC omeprazole 20 mg PO DAILY rifaximin (Xifaxan) 550 mg PO BID 10 days [right wrist splint As directed] zolpidem 5 mg PO BEDTIME PRN Do you need a note to return to daycare/school/sports/work: No HPI Shortness of breath HPI Details 72 YEARS OLD FEMALE IS BEING SEEN FOR THE 1ST TIME FOR PULMONARY EVALUATION, AND ADVICE. HER CHIEF COMPLAINT IS EPISODES OF COUGH, FEELING OF RUNNING WATER IN THE UPPER AIRWAYS, AND LOSS OF VOICE SOMETIMES. SHE IS A VERY PLEASANT SOMEWHAT ANXIOUS LADY, WHO IS IS GUPTA, AND FINDS THAT SHE HAS DIFFICULTY IN SINGING WITH THE HIGH NOTES. BACKGROUND HISTORY INCLUDES, CHRONIC IRRITABLE BOWEL SYNDROME,, AND LONGSTANDING NEURODERMATITIS. SHE ADMITS THAT SHE HAS TENDENCY TO WORDS PANIC ATTACKS, BUT IS ABLE TO CONTROL. SHE DOES HAVE CLONAZEPAM AN TABLETS ON HAND AND USES ONLY ONCE IN A WHILE. SHE ALSO USES ZOLPIDEM 5 MG AT BEDTIME ONLY P.R.N. PATIENT IS BEING ACTIVELY TREATED FOR IRRITABILITY BOWEL SYNDROME, SYMPTOMS INCLUDING GERD, MILD ESOPHAGEAL DYSMOTILITY. PANCREATIC INSUFFICIENCY. FROM PULMONARY POINT OF VIEW SHE DID NOT HAVE HISTORY OF ANY CHRONIC LUNG DISEASE. SHE HAS ONLY MILD DEGREE OF ALLERGIC RHINITIS, WHICH EFFECTS ARE ONLY ONCE IN A WHILE. BACK IN 2018 SHE HAD A BOUT OF ACUTE BRONCHITIS, FOR WHICH SHE WAS BRIEFLY ADMITTED TO THE HOSPITAL AND TREATED, COVID TEST CAME BACK NEGATIVE AT THAT TIME. THEN IN MAY 2021 SHE SUFFERED FROM UPPER RESPIRATORY INFECTION SYMPTOMS, TESTED POSITIVE FOR COVID, AND WAS TREATED OUTPATIENT. SHE RECOVERED FAIRLY WELL WITH SOMEWHAT INCREASED AMOUNT OF COUGH FOR A FEW MONTHS. I NOTICE THAT PREVIOUSLY PATIENT HAS AVOIDED HAVING ANY CHEST X-RAY, AND SHE HAS HAD NO PULMONARY FUNCTION TEST. PATIENT STATES THAT SHE KNOWS THAT SHE DOES NOT HAVE ANY SIGNIFICANT LUNG DISEASE BUT WANTED TO BE SURE. SHE NEVER SMOKED. [facility] Medical History Acute sinusitis Bronchitis with flu Cough Fibrocystic breast disease GERD (gastroesophageal reflux disease) History of chronic rhinitis Hx of irritable bowel syndrome Hx of osteopenia Irritable bowel syndrome with constipation Low back pain Lumbar disc disease Neurodermatitis Osteoarthritis Panic disorder PTSD (post-traumatic stress disorder) Screening for diabetes mellitus Tubular adenoma of colon Surgical History H/O colonoscopy with polypectomy History of colonoscopy Hx of cholecystectomy Hx of esophagogastroduodenoscopy Hx of tonsillectomy Family History Father Alcoholic Arthritis Mother Schizophrenia Heart failure Brother Hep C w/ coma, chronic Drug addict Cancer Social History Household Members: Friend(s) and None Housing: Other Alcohol intake: current Alcohol intake frequency: holidays/special occasions only Alcohol type: wine Patient Tobacco Use Status: Never used Tobacco e-Cigarette/Vaping Use: Never Used Second Hand Smoke Exposure: No service: No Current occupational status: retired Cognitive needs: No Hearing needs: No Vision needs: No Review of Systems Const All systems reviewed & are unremarkable except as noted in HPI and below Eyes Reports no additional complaints ENT Reports dysphagia (OCCASIONAL, MILD) and Reports nasal congestion (MILD OFF AND ON) Card Denies chest pain, Denies irregular heart rhythm and Denies leg edema Resp Reports as per HPI GI Reports GI cramping, Reports dysphagia (OCCASIONAL, MILD) and Reports dyspepsia Reports no additional complaints Musc Reports no additional complaints Skin/Breast Reports other (LONGSTANDING HISTORY OF SKIN RASH, DIAGNOSED NEURODERMATITIS.) Neuro Reports no additional complaints Psych Reports anxiety and Reports panic attacks (VERY MILD TENDENCY TO HAVE PANIC ATTACKS) Endo Reports no additional complaints Moshe/Lymph Reports no additional complaints Aller/Immun Reports no additional complaints Physical Exam Vital Signs: Last Vital Signs Pulse 52 11/17/22 10:11 BP 102/70 11/17/22 10:11 Pulse Ox 100 11/17/22 10:11 Oxygen Delivery Method Room Air 11/17/22 10:11 Const General: healthy appearing, comfortable, no acute distress, alert and awake Orientation/consciousness: patient oriented x3 HEENT Head: Yes normal to inspection General nose exam: No nasal polyps present and No nasal discharge present Face and sinus: Yes sinuses nontender Mouth: oropharynx normal Throat: Yes posterior oropharynx normal Eyes General: appearance normal, both eyes and all related structures Neck Neck: Yes normal visual inspection, Yes no lymphadenopathy, Yes trachea midline and Yes no JVD Thyroid: Thyroid normal Chest Chest palpation & inspection: normal inspection of the chest, normal palpation of entire chest wall and no tenderness Resp Effort & Inspection: normal respiratory effort Auscultation: clear to auscultation bilaterally, no crackles and no wheezes Cardio Palpation: normal PMI Rate: regular rate Rhythm: regular rhythm Heart sounds: no gallops and no murmurs Peripheral pulses: Peripheral pulses 2+ throughout GI Palpation (GI): Soft to palpation, nontender, No hepatosplenomegaly present and no masses Auscultation: normal bowel sounds Back/Spine/Pelvis Thoracic/Lumbar Spine: thoracic and lumbar spine normal to inspection Skin General skin exam: no rashes or lesions noted and other (MULTIPLE EXCORIATED AREAS ON THE FRONT OF THE CHEST AND BACK.) Neuro General: patient oriented x3 and no focal motor deficits Cranial nerves: Yes CN's II-XII intact bilaterally Extrem General: Yes normal to inspection, Yes no clubbing, cyanosis or edema and Yes no calf tenderness Psych Appearance: grossly normal and well kempt Speech and movement: Normal speech and movement present Assessment & Plan Assessment & Plan (1) Cough: Comment: Very mild and nonspecific cough, May be, related to her COVID infection in 2021, May also be related to minimal degree of allergic rhinitis. The severity is not much , requiring any treatment with medications. Code(s): R05.9 - Cough, unspecified (2) Shortness of breath: Comment: Shortness of breath on walking 1 or 2 flights of stairs, especially when outdoors. No wheezing described along with shortness of breath. IT SEEMS TO BE FUNCTIONAL, Chest x-ray ordered to rule out any pulmonary abnormality ( patient was very reluctant to have a chest x-ray and I had to convince her to have it for com pletion of workup ) PULMONARY FUNCTION TEST TO RULE OUT ANY OBSTRUCTIVE OR RESTRICTIVE DISORDER. Code(s): R06.02 - Shortness of breath Plan I had a good discussion with the patient, she understood conversation very well. I reassured her that clinically I do not think she has any significant pulmonary disease, And it will be reinforced by doing some basic workup.. Will recheck her after the chest x-ray and PFT are completed . Orders: Orders XR chest 2V Today R05.9 - Cough, unspecified, R06.02 - Shortness of breath PFT pulmonary function test Today R05.9 - Cough, unspecified, R06.02 - Shortness of breath Coding Level of Care Code New Pt Level 4 (54485) Diagnoses Cough R05.9 Shortness of breath R06.02
== END 2022-11-17 10:51 | disposition home or self-care (01) ==
PROVIDERS: PCP Internal Medicine; Visit Provider Internal Medicine
DX: R05.9 Cough, unspecified (principal); R06.02 Shortness of breath
CPT/HCPCS: 99204

== ENCOUNTER 2022-11-18 12:34 | Outpatient (AMB) | payer MEDICARE, MEDICAID, SELFPAY ==
[2022-11-18 12:36] VITALS: BP 134/72; PULSE 70; O2SAT 98
--- NOTE | 2022-11-18 12:36 | MHC.PC.OV ---
Vital Signs 11/18/22 12:36 Height 5 ft BMI Reason not done Patient refused/unable BP 134/72 Blood Pressure Location Lt brachial Position Sitting Pulse 70 Pulse Source Pulse Oximeter Pulse Oximetry (%) 98 Oxygen Delivery Method Room Air Intake Visit Reasons: 6M cholesterol Allergies alcohol [ALCOHOL] Allergy (Unknown, Verified 11/18/22 12:36) ON SKIN - HIVES , SWELLING gluten [GLUTEN] Allergy (Unknown, Verified 11/18/22 12:36) HIVES latex [LATEX] Allergy (Unknown, Verified 11/18/22 12:36) HIVES,SWELLING mold Allergy (Unknown, Verified 11/18/22 12:36) HIVES yeast, dried [YEAST] Allergy (Unknown, Verified 11/18/22 12:36) HIVES dairy Allergy (Mild, Uncoded 11/18/22 12:36) Hives smoked meat Allergy (Mild, Uncoded 11/18/22 12:36) Hives Medication List - Last Reconciled 11/18/22 by Reynaldo Strong MD [left wrist splint As directed] lfdswq-xexkzkmg-[id number] 6,000-19,000 -30,000 unit (Creon) 1 cap PO .TIDAC omeprazole 20 mg PO DAILY [right wrist splint As directed] zolpidem 5 mg PO BEDTIME PRN Tobacco use date assessed: 11/18/22 Fall risk assessment: No Falls in past year Last assessed Fall Risk: 11/18/22 Dental Screening Dental Screen Date: 11/18/22 Did you have a dental visit in the last 12 months?: Yes Did you have a dental problem in the last 6 months where you did not have access to dental care?: No Was dental information given to patient?: Patient has dentist HPI 6M cholesterol HPI Details 72-year-old female with a history of bipolar disorder carpal tunnel GERD hypercholesterolemia and vitamin-D deficiency last seen in March 2022 mammograms up-to-date colonoscopy is up-to-date bone density still up-to-date comes in for follow-up. Patient has a cough and problem with breathing in seeing pulmonary pulmonary function test requested reinforced as the severity of illness coordinator does not think she has any significant pulmonary disease. Patient has seen gastroenterology also August due to diarrhea diagnosis of irritable bowel syndrome diet recommendation last colonoscopy was 2019 and repeat in 2024. [facility] Medical History Acute sinusitis Bronchitis with flu Cough Fibrocystic breast disease GERD (gastroesophageal reflux disease) History of chronic rhinitis Hx of irritable bowel syndrome Hx of osteopenia Irritable bowel syndrome with constipation Low back pain Lumbar disc disease Neurodermatitis Osteoarthritis Panic disorder PTSD (post-traumatic stress disorder) Screening for diabetes mellitus Tubular adenoma of colon Surgical History H/O colonoscopy with polypectomy History of colonoscopy Hx of cholecystectomy Hx of esophagogastroduodenoscopy Hx of tonsillectomy Family History (Updated 11/18/22 @ 12:37 by Cathy Coello PATIENT AMBASSADOR) Father Alcoholic Arthritis Mother Schizophrenia Heart failure Brother Hep C w/ coma, chronic Drug addict Cancer Other Mental health disorder Substance use disorder Social History Household Members: Friend(s) and None Housing: Other Alcohol intake: current Alcohol intake frequency: holidays/special occasions only Alcohol type: wine Patient Tobacco Use Status: Never used Tobacco e-Cigarette/Vaping Use: Never Used Second Hand Smoke Exposure: No service: No Current occupational status: retired Cognitive needs: No Hearing needs: No Vision needs: No Questionnaire PHQ-9 Over the last 2 weeks, how often have you been bothered by any of the following problems? 1. Little interest or pleasure in doing things: not at all 2. Feeling down, depressed, or hopeless: not at all 3. Trouble falling or staying asleep, or sleeping too much: not at all 4. Feeling tired or having little energy: not at all 5. Poor appetite or overeating: not at all 6. Feeling bad about yourself - or that you are a failure or have let yourself or your family down: not at all 7. Trouble concentrating on things, such as reading the newspaper or watching television: not at all 8. Moving or speaking so slowly that other people could have noticed. Or the opposite - being so fidgety or restless that you have been moving around a lot more than usual: not at all 9. Thoughts that you would be better off or of hurting yourself in some way: not at all Total score: 0 Depression Screening Interpretation: Negative Source: Developed by Drs. Diogenes Emanuel, Mercy Khalil, Raman Madsen and colleagues, with an educational lisa from [employer]. Thrive Questionnaire Date Thrive assessed: 11/18/22 I am a: Patient What is your living situation today?: I have a steady place to live Within the past 12 months, did the food you bought not last and you didn't have the money to get more?: Never true Within the past 12 months, did you worry whether your food would run out before you got money to buy more?: Never true Do you have trouble paying for medicines?: No Do you have trouble getting transportation to medical appointments?: No Do you have trouble paying your heating and electricity bill?: No Do you have trouble taking care of your child, family member or friend?: No Do you have trouble with day-to-day activities such as bathing, preparing meals, shopping, managing finances, etc.?: No Are you currently unemployed and looking for a job?: No Are you interested in more education?: No Currently or been in a relationship where the following occur: no concerns reported AUDIT C Alcohol Use Questionnaire (AUDIT-C) 1. How often do you have a drink containing alcohol?: Never 2. How many drinks containing alcohol do you have on a typical day when you are drinking?: 1 or 2 (0) 3. How often do you have six or more drinks on one occasion?: Never Total Score: 0 Score Reviewed/Action Taken: No MEENU-7 AMB Questionnaire MEENU-7 Date MEENU - 7 assessed: 11/18/22 Feeling nervous, anxious, or on edge: 0 = Not at all Not being able to stop or control worryin = Not at all Worrying too much about different things: 0 = Not at all Trouble relaxin = Not at all Being so restless that it is hard to sit still: 0 = Not at all Becoming easily annoyed or irritable: 0 = Not at all Feeling afraid as if something awful might happen: 0 = Not at all Total MEENU-7 score (0-4 normal; 5-9 mild; 10-14 moderate; 15-21 severe): 0 Source: Developed by Mercy Man Kurt Kroenke and colleagues, with an educational lisa from [employer]. MEENU-7 Assessment Billing MEENU-7 Assessment Tool: MEENU-7 Assessment 09169 Physical exam (Primary Care) Vital Signs: Last Vital Signs Pulse 70 11/18/22 12:36 BP 134/72 11/18/22 12:36 Pulse Ox 98 11/18/22 12:36 Oxygen Delivery Method Room Air 11/18/22 12:36 Tobacco/Smoking Status: Tobacco use Status Tobacco use date assessed 11/18/22 11/18/22 12:38 Patient Tobacco Use Status Never used Tobacco 11/18/22 12:38 e-Cigarette/Vaping Use Never Used 11/18/22 12:38 PHQ-9: PHQ-9 Score PHQ-9: Total score 0 11/18/22 18:56 Depression Screening Interpretation: Negative Thrive Assessment: Date of Thrive Assessment Date Thrive assessed 11/18/22 11/18/22 12:38 Currently or been in a relationship where the following occur: no concerns reported Const General: alert; No acute distress Eyes Conjunctivae: conjunctivae normal Resp Auscultation: clear to auscultation bilaterally Cardio Rate: regular rate Rhythm: regular rhythm GI Inspection: Yes normal to inspection Extrem General: Yes normal to inspection and No edema Assessment and Plan Assessment & Plan (1) Hypercholesterolemia: Code(s): E78.00 - Pure hypercholesterolemia, unspecified Plan: Avoid fried foods, chicken skin, eggs, butter margarine, pastries and meat. Be it pork or beef they have a lot of cholesterol LDL goal of less than 130 and triglyceride of less than 150 (2) Irritable bowel syndrome with both constipation and diarrhea: Code(s): K58.2 - Mixed irritable bowel syndrome Plan: Patient follows up with Gastroenterology, dietary recommendations (3) Bipolar 1 disorder: Comment: [facility] counselling once a week (12/2020) Code(s): F31.9 - Bipolar disorder, unspecified Plan: Continue with counseling and therapy (4) GERD (gastroesophageal reflux disease): Code(s): K21.9 - Gastro-esophageal reflux disease without esophagitis Qualifiers: Esophagitis presence: without esophagitis Qualified Code(s): K21.9 - Gastro-esophageal reflux disease without esophagitis Plan: Avoid the foods that causes that usually spicy foods, tomato products, juices, coffee, soda and foods that your sensitive to. After eating do not lie down, allow 3-4 hours before in lie down. And keep the head of bed above 30 degrees to avoid the acid from going up. (5) Tubular adenoma of colon: Comment: Last scope 2019 repeat in 5 years or 2024 aeb Code(s): D12.6 - Benign neoplasm of colon, unspecified Plan: 2024 schedule (6) Osteoporosis: Code(s): M81.0 - Age-related osteoporosis without current pathological fracture Plan: repeat bone density 01/2023 Orders: Orders XR DEXA axial skeleton 2 Months M81.0 - Age-related osteoporosis without current pathological fracture Vitamin B12 and Folate 2 Months K21.9 - Gastro-esophageal reflux disease without esophagitis Comprehensive Met. Panel 2 Months E78.00 - Pure hypercholesterolemia, unspecified Lipid Panel 2 Months E78.00 - Pure hypercholesterolemia, unspecified Free T4 (Free Thyroxine) 2 Months E78.00 - Pure hypercholesterolemia, unspecified Thyroid Stimulating Hormone 2 Months K21.9 - Gastro-esophageal reflux disease without esophagitis Vitamin D 25-OH Total 2 Months E78.00 - Pure hypercholesterolemia, unspecified Complete Blood Count Auto Diff 2 Months K21.9 - Gastro-esophageal reflux disease without esophagitis Medications: Discontinued rifaximin (Xifaxan) Discontinued Reason: Patient Completed Course 550 mg PO BID 10 days 20 tabs 0RF K58.1 - Irritable bowel syndrome with constipation Coding Level of Care Code Est Pt Level 4 (09696) Diagnoses Hypercholesterolemia E78.00 Irritable bowel syndrome with both constipation and diarrhea K58.2 Bipolar 1 disorder F31.9 GERD (gastroesophageal reflux disease) K21.9 Esophagitis presence: without esophagitis Tubular adenoma of colon D12.6 Osteoporosis M81.0 Additional Codes MEENU-7 Assessment Billing - MEENU-7 Assessment Tool: MEENU-7 Assessment 76508 ([id number]) PHQ-9 - 83737 - PHQ-9 Billing: Y ([id number])
== END 2022-11-18 13:27 | disposition home or self-care (01) ==
PROVIDERS: PCP Internal Medicine; Visit Provider Internal Medicine
DX: E78.00 Pure hypercholesterolemia, unspecified (principal); K58.2 Mixed irritable bowel syndrome; F31.9 Bipolar disorder, unspecified; K21.9 Gastro-esophageal reflux disease without esophagitis; D12.6 Benign neoplasm of colon, unspecified; M81.0 Age-related osteoporosis without current pathological fracture
CPT/HCPCS: 99214

== ENCOUNTER 2022-11-27 09:36 | Outpatient (AMB) | payer MEDICARE, MEDICAID, SELFPAY ==
--- NOTE | 2022-11-27 10:07 | MHC.OFFWIV ---
Intake Vital Signs 11/27/22 10:08 Height 5 ft BP 132/74 Blood Pressure Location Lt brachial Position Sitting Pulse 55 Pulse Source Pulse Oximeter Temp 97.9 F Temp Source Oral Pulse Oximetry (%) 99 Oxygen Delivery Method Room Air Intake Visit Reasons: EST/uti ? Intake Note: pt is here for possible uti with cold symptoms Patient Tobacco Use Status: Never used Tobacco Allergies alcohol [ALCOHOL] Allergy (Unknown, Verified 11/27/22 10:07) ON SKIN - HIVES , SWELLING gluten [GLUTEN] Allergy (Unknown, Verified 11/27/22 10:07) HIVES latex [LATEX] Allergy (Unknown, Verified 11/27/22 10:07) HIVES,SWELLING mold Allergy (Unknown, Verified 11/27/22 10:07) HIVES yeast, dried [YEAST] Allergy (Unknown, Verified 11/27/22 10:07) HIVES dairy Allergy (Mild, Uncoded 11/18/22 12:36) Hives smoked meat Allergy (Mild, Uncoded 11/18/22 12:36) Hives Do you need a note to return to daycare/school/sports/work: No HPI HPI Comments History of Present Illness Details This is a 72-year-old female who presents to the office today for sick visit. Patient complaining of dysuria and urinary frequency/urgency x3 days. Patient denies any vaginal discharge, vaginal irritation, or vaginal itching. She denies any fevers or chills. She denies any flank or back pain. Patient otherwise feeling well. She has been utilizing [id number] azo with mild relief. [facility] Medical History Acute sinusitis Bronchitis with flu Cough Fibrocystic breast disease GERD (gastroesophageal reflux disease) History of chronic rhinitis Hx of irritable bowel syndrome Hx of osteopenia Irritable bowel syndrome with constipation Low back pain Lumbar disc disease Neurodermatitis Osteoarthritis Panic disorder PTSD (post-traumatic stress disorder) Screening for diabetes mellitus Tubular adenoma of colon Surgical History H/O colonoscopy with polypectomy History of colonoscopy Hx of cholecystectomy Hx of esophagogastroduodenoscopy Hx of tonsillectomy Family History (Updated 11/18/22 @ 12:37 by Cathy Coello CMA) Father Alcoholic Arthritis Mother Schizophrenia Heart failure Brother Hep C w/ coma, chronic Drug addict Cancer Other Mental health disorder Substance use disorder Social History Household Members: Friend(s) and None Housing: Other Alcohol intake: current Alcohol intake frequency: holidays/special occasions only Alcohol type: wine Patient Tobacco Use Status: Never used Tobacco e-Cigarette/Vaping Use: Never Used Second Hand Smoke Exposure: No service: No Current occupational status: retired Cognitive needs: No Hearing needs: No Vision needs: No Review of Systems Const All systems reviewed & are unremarkable except as noted in HPI and below Reports no additional complaints Eyes Reports no additional complaints ENT Reports no additional complaints Card Reports no additional complaints Resp Reports no additional complaints GI Reports no additional complaints Reports dysuria, Reports urinary urgency, Denies vaginal discharge and Denies vaginal pruritus Musc Reports no additional complaints Skin/Breast Reports system reviewed and no additional complaints, except as documented Neuro Reports no additional complaints Psych Reports no additional complaints Endo Reports no additional complaints Moshe/Lymph Reports no additional complaints Aller/Immun Reports no additional complaints Physical Exam Vital Signs: Last Vital Signs Temp 97.9 F 11/27/22 10:08 Pulse 55 11/27/22 10:08 BP 132/74 11/27/22 10:08 Pulse Ox 99 11/27/22 10:08 Oxygen Delivery Method Room Air 11/27/22 10:08 Const General: cooperative, healthy appearing, no acute distress and well developed Orientation/consciousness: patient oriented x3 HEENT Head: Yes normal to inspection Ears: hearing grossly normal bilaterally General nose exam: Normal external nose present Face and sinus: Yes normal facial exam Mouth: Normal oral and palatal mucosa present Eyes General: appearance normal, both eyes and all related structures Pupils: Equal, round and reactive pupils present EOM: EOMs intact bilaterally Resp Effort & Inspection: normal respiratory effort and no respiratory distress Auscultation: clear to auscultation bilaterally Cardio Rate: regular rate Rhythm: regular rhythm Heart sounds: no gallops, no murmurs and no rubs Peripheral pulses: Peripheral pulses 2+ throughout GI Inspection: No distended Palpation (GI): Soft to palpation and nontender Auscultation: normal bowel sounds General: Yes no CVA tenderness Back/Spine/Pelvis Back: no CVA tenderness Skin General skin exam: no rashes or lesions noted Neuro General: patient oriented x3 Cranial nerves: Yes CN's II-XII intact bilaterally and Yes Equal, round and reactive pupils present Gait exam (Neuro): Normal gait present Motor exam (neuro): 5/5 motor strength present throughout Extrem General: Yes normal to inspection, Yes full ROM and Yes no clubbing, cyanosis or edema Psych Appearance: grossly normal Mental Status: mental status grossly normal Results AMB Urinalysis, Automated UA Leukoctes 0 Tiana/uL Last Edit by Jose Lambert CMA on 11/27/22 10:14 UA Nitrite Negative Last Edit by Jose Lambert CMA on 11/27/22 10:14 UA Urobilinogen 0.2 mg/dL Last Edit by Jose Lambert CMA on 11/27/22 10:14 UA Protein 0 mg/dL Last Edit by oJse Lambert CMA on 11/27/22 10:14 UA pH 7.0 Last Edit by Jose Lambert CMA on 11/27/22 10:14 UA Blood 0 Pepito/uL Last Edit by Jose Lambert CMA on 11/27/22 10:14 UA Specific [place] 1.015 Last Edit by Jose Lambert CMA on 11/27/22 10:14 UA Ketone Negative Last Edit by Jose Lambert CMA on 11/27/22 10:14 UA Bilirubin 0 mg/dL Last Edit by Jose Lambert CMA on 11/27/22 10:14 UA Glucose 0 mg/dL Last Edit by Jose Lambert CMA on 11/27/22 10:14 Results Reviewed Results Reviewed: Laboratory Last Values Urine pH (Auto) 7.0 11/27/22 10:13 Specific [place] (Auto) 1.015 11/27/22 10:13 Urine Protein (Auto) 0 mg/dL 11/27/22 10:13 Glucose (UA)(Auto) 0 mg/dL 11/27/22 10:13 Urine Ketones (Auto) Negative 11/27/22 10:13 Urine Blood (Auto) 0 Pepito/uL 11/27/22 10:13 Urine Nitrite (Auto) Negative 11/27/22 10:13 Urine Bilirubin (Auto) 0 mg/dL 11/27/22 10:13 Urine Urobilinogen (Auto) 0.2 mg/dL 11/27/22 10:13 Leukocyte Esterase (Auto) 0 Tiana/uL 11/27/22 10:13 Assessment & Plan Assessment & Plan (1) Urinary tract infection: Code(s): N39.0 - Urinary tract infection, site not specified Plan: This is a 72-year-old female presenting to the office today complaining of urinary symptoms. Urinalysis is negative nitrites or leukocyte esterase, but clinically patient appears to have a urinary tract infection. Treat with p.o. cephalexin 500 mg 4 times daily x5 days. Patient instructed to follow-up here go to the emergency room if she were to develop fever/chills, flank/back pain, or hematuria. Patient verbalized understanding and is agreeable with the plan. Orders: Orders AMB Urinalysis Automated Today Z13.9 - Encounter for screening, unspecified Medications: New cephalexin 500 mg PO QID 20 caps 0RF Coding Level of Care Code Est Pt Level 3 (67936) Diagnoses Urinary tract infection N39.0
[2022-11-27 10:08] VITALS: BP 132/74; PULSE 55; TEMP 36.6; O2SAT 99
== END 2022-11-27 10:34 | disposition home or self-care (01) ==
PROVIDERS: PCP Internal Medicine; Visit Provider Physician Assistant Medical
DX: N39.0 Urinary tract infection, site not specified (principal); Z13.9 Encounter for screening, unspecified
CPT/HCPCS: 81003; 99213

== ENCOUNTER 2022-11-29 11:23 | Outpatient (REF) | payer MEDICARE, MEDICAID, SELFPAY ==
[2022-11-29 13:46] LABS: Appearance Urine Clear; Color Urine Yellow; Glucose Urine UA Negative (Negative); Leukocyte Esterase Urine Negative (Negative); Nitrite Urine Negative (Negative); Specific Gravity - Urine 1.015 (1.005-1.025); Urine Blood Negative (Negative); Urine Ketones Negative (Negative); Urine Protein Negative (Neg-Trace)
== END 2022-11-29 11:24 | disposition home or self-care (01) ==
LOC: HO.HMGCLDS 11:23
PROVIDERS: PCP Internal Medicine; Visit Provider Internal Medicine
DX: R30.0 Dysuria (principal)
CPT/HCPCS: 81003

== ENCOUNTER 2022-12-02 10:31 | Outpatient (AMB) | payer MEDICARE, MEDICAID, SELFPAY ==
[2022-12-02 10:34] VITALS: BP 140/72; PULSE 68; O2SAT 97
--- NOTE | 2022-12-02 10:34 | MHC.PC.OV ---
Vital Signs 12/02/22 10:34 12/02/22 11:13 Height 5 ft BMI Reason not done Patient refused/unable BP 140/72 H 138/70 Blood Pressure Location Lt brachial Position Sitting Pulse 68 Pulse Source Pulse Oximeter Pulse Oximetry (%) 97 Oxygen Delivery Method Room Air Intake Visit Reasons: wants to be checked for UTI Allergies alcohol [ALCOHOL] Allergy (Unknown, Verified 12/02/22 11:00) ON SKIN - HIVES , SWELLING gluten [GLUTEN] Allergy (Unknown, Verified 12/02/22 11:00) HIVES latex [LATEX] Allergy (Unknown, Verified 12/02/22 11:00) HIVES,SWELLING mold Allergy (Unknown, Verified 12/02/22 11:00) HIVES yeast, dried [YEAST] Allergy (Unknown, Verified 12/02/22 11:00) HIVES dairy Allergy (Mild, Uncoded 12/02/22 10:34) Hives smoked meat Allergy (Mild, Uncoded 12/02/22 10:34) Hives Medication List - Last Reconciled 12/02/22 by Salo Ospina PA-C cephalexin 500 mg PO QID cetirizine 10 mg PO DAILY jovjhz-yyheuvia-hxdfzgi 6,000-19,000 -30,000 unit (Creon) 1 cap PO .TIDAC omeprazole 20 mg PO DAILY zolpidem 5 mg PO BEDTIME PRN Tobacco use date assessed: 11/18/22 Fall risk assessment: No Falls in past year Last assessed Fall Risk: 12/02/22 Dental Screening Dental Screen Date: 12/02/22 Did you have a dental visit in the last 12 months?: Yes Did you have a dental problem in the last 6 months where you did not have access to dental care?: No Was dental information given to patient?: Patient has dentist HPI wants to be checked for UTI HPI Details Patient is a 72-year-old female here today for problem visit. This fine 1st time meeting this 72-year-old female with a past medical history significant for GERD, bipolar disorder, osteoporosis, insomnia. She reports she has been having lower pelvic pain and burning during urination. Today's urinalysis showing positive leukocytes esterase She was previously placed on cephalexin though felt it was not effective for her urinary symptoms. [facility] Medical History Acute sinusitis Bronchitis with flu Cough Fibrocystic breast disease GERD (gastroesophageal reflux disease) History of chronic rhinitis Hx of irritable bowel syndrome Hx of osteopenia Irritable bowel syndrome with constipation Low back pain Lumbar disc disease Neurodermatitis Osteoarthritis Panic disorder PTSD (post-traumatic stress disorder) Screening for diabetes mellitus Tubular adenoma of colon Surgical History H/O colonoscopy with polypectomy History of colonoscopy Hx of cholecystectomy Hx of esophagogastroduodenoscopy Hx of tonsillectomy Family History Father Alcoholic Arthritis Mother Schizophrenia Heart failure Brother Hep C w/ coma, chronic Drug addict Cancer Other Mental health disorder Substance use disorder Social History Household Members: Friend(s) and None Housing: Other Alcohol intake: current Alcohol intake frequency: holidays/special occasions only Alcohol type: wine Patient Tobacco Use Status: Never used Tobacco e-Cigarette/Vaping Use: Never Used Second Hand Smoke Exposure: No service: No Current occupational status: retired Cognitive needs: No Hearing needs: No Vision needs: No Questionnaire PHQ-9 Over the last 2 weeks, how often have you been bothered by any of the following problems? 1. Little interest or pleasure in doing things: not at all 2. Feeling down, depressed, or hopeless: not at all 3. Trouble falling or staying asleep, or sleeping too much: not at all 4. Feeling tired or having little energy: not at all 5. Poor appetite or overeating: not at all 6. Feeling bad about yourself - or that you are a failure or have let yourself or your family down: not at all 7. Trouble concentrating on things, such as reading the newspaper or watching television: not at all 8. Moving or speaking so slowly that other people could have noticed. Or the opposite - being so fidgety or restless that you have been moving around a lot more than usual: not at all 9. Thoughts that you would be better off or of hurting yourself in some way: not at all Total score: 0 Depression Screening Interpretation: Negative Source: Developed by Drs. Diogenes Emanuel, Raman Jenkins and colleagues, with an educational lisa from [employer]. Thrive Questionnaire Date Thrive assessed: 11/18/22 AUDIT C Alcohol Use Questionnaire (AUDIT-C) 1. How often do you have a drink containing alcohol?: Never 2. How many drinks containing alcohol do you have on a typical day when you are drinking?: 1 or 2 (0) 3. How often do you have six or more drinks on one occasion?: Never Total Score: 0 Score Reviewed/Action Taken: No MEENU-7 AMB Questionnaire MEENU-7 Date MEENU - 7 assessed: 11/18/22 Source: Developed by Drs. Diogenes Emanuel, Raman Jenkins and colleagues, with an educational lisa from [employer]. Review of Systems Const Denies headache(s) Eyes Denies loss of vision ENT Denies vertigo, Denies dizziness, Denies headache(s) and Denies sore throat Card Denies chest pain, Denies leg edema and Denies lightheadedness Resp Denies cough, Denies hemoptysis and Denies wheezing GI Denies abdominal pain, Denies melena, Denies constipation, Denies diarrhea and Denies vomiting Denies urinary frequency, Reports dysuria, Reports pelvic pain and Denies urinary urgency Musc Denies arthralgias, Denies joint swelling, Denies numbness and Denies tingling Neuro Denies Abnormal speech present, Denies behavioral changes, Denies vertigo, Denies dizziness, Denies headache(s), Denies loss of vision, Denies memory loss, Denies numbness and Denies tingling Psych Denies anxiety, Denies behavioral changes, Denies depression, Denies memory loss and Denies panic attacks Moshe/Lymph Denies easy bleeding and Denies easy bruising Aller/Immun Denies wheezing Physical exam (Primary Care) Vital Signs: Last Vital Signs Pulse 68 12/02/22 10:34 BP 138/70 12/02/22 11:13 Pulse Ox 97 12/02/22 10:34 Oxygen Delivery Method Room Air 12/02/22 10:34 Tobacco/Smoking Status: Tobacco use Status Tobacco use date assessed 11/18/22 12/02/22 10:40 Patient Tobacco Use Status Never used Tobacco 12/02/22 10:40 e-Cigarette/Vaping Use Never Used 12/02/22 10:40 PHQ-9: PHQ-9 Score PHQ-9: Total score 0 12/02/22 11:03 Depression Screening Interpretation: Negative Thrive Assessment: Date of Thrive Assessment Date Thrive assessed 11/18/22 12/02/22 10:40 Const General: healthy appearing, no acute distress, alert and awake Nutritional Appearance: well nourished Orientation/consciousness: oriented to person, oriented to place and oriented to time HENMT Ears: TM's normal bilaterally General nose exam: Normal nasal mucous membranes and turbinates present Eyes Conjunctivae: conjunctivae normal Sclerae: sclerae normal Pupils: Equal, round and reactive pupils present Neck Neck: Yes no lymphadenopathy and Yes no JVD Thyroid: Thyroid normal Carotids: no bruits Resp Effort & Inspection: normal respiratory effort and not tachypneic Auscultation: no crackles, no rales, no rhonchi and no wheezes Cardio Rate: regular rate Rhythm: regular rhythm Heart sounds: no murmurs and normal S1 and S2 GI Palpation (GI): Soft to palpation, nontender, no hepatomegaly and no splenomegaly Auscultation: normal bowel sounds Skin General skin exam: no rashes or lesions noted and dry skin Neuro General: oriented to person, oriented to place and oriented to time Cranial nerves: Yes Equal, round and reactive pupils present Speech: No Abnormal speech present Gait exam (Neuro): Normal gait present Motor exam (neuro): no tremor noted Extrem Right upper extremity: full ROM Left upper extremity: full ROM Right lower extremity: full ROM; no edema Left lower extremity: full ROM; no edema Psych Mental Status: mental status grossly normal Speech and movement: Normal speech and movement present Affect: normal affect Attitude: cooperative Thought process: Normal thought process present Results AMB Urinalysis, Automated UA Leukoctes 125 Tiana/uL Last Edit by Cathy Coello CMA on 12/02/22 10:55 UA Nitrite Negative Last Edit by Cathy Coello CMA on 12/02/22 10:55 UA Urobilinogen 0.2 mg/dL Last Edit by Cathy Coello CMA on 12/02/22 10:55 UA Protein 0 mg/dL Last Edit by Cathy Coello CMA on 12/02/22 10:55 UA pH 6.5 Last Edit by Cathy Coello, XENIA on 12/02/22 10:55 UA Blood 0 Pepito/uL Last Edit by Cathy Coello, XENIA on 12/02/22 10:55 UA Specific [place] 1.020 Last Edit by Cathy Coello, XENIA on 12/02/22 10:55 UA Ketone Negative Last Edit by Cathy Coello, XENIA on 12/02/22 10:55 UA Bilirubin 0 mg/dL Last Edit by Cathy Coello, [employer] on 12/02/22 10:55 UA Glucose 0 mg/dL Last Edit by Cathy Coello, XENIA on 12/02/22 10:55 Results Reviewed Results Reviewed: Laboratory Last Values Urine pH (Auto) 6.5 12/02/22 10:54 Specific [place] (Auto) 1.020 12/02/22 10:54 Urine Protein (Auto) 0 mg/dL 12/02/22 10:54 Glucose (UA)(Auto) 0 mg/dL 12/02/22 10:54 Urine Ketones (Auto) Negative 12/02/22 10:54 Urine Blood (Auto) 0 Pepito/uL 12/02/22 10:54 Urine Nitrite (Auto) Negative 12/02/22 10:54 Urine Bilirubin (Auto) 0 mg/dL 12/02/22 10:54 Urine Urobilinogen (Auto) 0.2 mg/dL 12/02/22 10:54 Leukocyte Esterase (Auto) 125 Tiana/uL 12/02/22 10:54 Assessment and Plan Assessment & Plan (1) Urethritis: Code(s): N34.2 - Other urethritis Plan: Patient's signs symptoms consistent with urethritis. Has been on Keflex though was not effective. Urinalysis today showing positive leukocytes esterase. She denies any vaginal discharge. Advised on a possible vaginal swab though patient declines at this time. Will see treat with Macrobid for 5 day trial. Advised to increase her fluids and consider vaginal cream for possible atrophic vaginitis Orders: Orders AMB Urinalysis Automated Today Z13.9 - Encounter for screening, unspecified Medications: New nitrofurantoin monohyd/m-cryst 100 mg (Macrobid) must administer with a meal/food 100 mg PO Q12H 5 days 10 caps 0RF N34.2 - Other urethritis Discontinued cephalexin Discontinued Reason: Doctor's Order 500 mg PO QID 20 caps 0RF Coding Level of Care Code Est Pt Level 3 (71423) Diagnoses Urethritis N34.2 Additional Codes PHQ-9 - 64348 - PHQ-9 Billing: Y ([id number])
[2022-12-02 11:13] VITALS: BP 138/70
== END 2022-12-02 11:17 | disposition home or self-care (01) ==
PROVIDERS: PCP Internal Medicine; Visit Provider Physician Assistant
DX: N34.2 Other urethritis (principal)
CPT/HCPCS: 81003; 99213

== ENCOUNTER 2022-12-02 17:47 | Outpatient (REF) | payer MEDICARE, MEDICAID, SELFPAY ==
[2022-12-02 18:10] LABS: Appearance Urine Clear; Color Urine Yellow; Glucose Urine UA Negative (Negative); Leukocyte Esterase Urine Negative (Negative); Nitrite Urine Negative (Negative); PH 6.5 (5.0-9.0); Specific Gravity - Urine 1.015 (1.005-1.025); Urine Blood Negative (Negative); Urine Ketones Negative (Negative); Urine Protein Negative (Neg-Trace)
== END 2022-12-02 17:48 | disposition home or self-care (01) ==
LOC: HO.LNP 17:47
PROVIDERS: Visit Provider Internal Medicine
DX: R39.9 Unspecified symptoms and signs involving the genitourinary system (principal)
CPT/HCPCS: 81003

== ENCOUNTER 2022-12-21 11:04 | Outpatient (AMB) | payer MEDICARE, MEDICAID, SELFPAY ==
--- NOTE | 2022-12-21 11:10 | MHC.OFFVIS ---
Intake Vital Signs 12/21/22 11:21 Height 5 ft BP 125/72 Blood Pressure Location Rt brachial Position Sitting Comment PT denied to check weight. Intake Visit Reasons: 4 month follow up IBS Intake Note: Damari presents in the office as a 4 months follow up of GERD. CC: She reports she continues to have headaches d/t stress and her skin issues. Denies other GI symptoms today. Mailer Apprentice Required: No Accompanied by: Self / Same As Patient Allergies alcohol [ALCOHOL] Allergy (Unknown, Verified 12/21/22 11:14) ON SKIN - HIVES , SWELLING gluten [GLUTEN] Allergy (Unknown, Verified 12/21/22 11:14) HIVES latex [LATEX] Allergy (Unknown, Verified 12/21/22 11:14) HIVES,SWELLING mold Allergy (Unknown, Verified 12/21/22 11:14) HIVES yeast, dried [YEAST] Allergy (Unknown, Verified 12/21/22 11:14) HIVES dairy Allergy (Mild, Uncoded 12/02/22 10:34) Hives smoked meat Allergy (Mild, Uncoded 12/02/22 10:34) Hives HPI 4 month follow up IBS HPI Details Assessment & Plan (1) Irritable bowel syndrome with constipation: ?Code(s): K58.1 - Irritable bowel syndrome with constipation ?Plan: She saw Dr. Hightower while I was out on leave. She is doing better eating Fiber 1 Cereal. She did not like the metamucil (too gritty) and also did not like the Miralax. With this, and peppermint tincture, she is doing better and even having normal BM's. She also never tried the hyoscamine. She decided against seeing pulmonology. She is having XAVIER's, but she is having a lot of problems to solve for a friend with home repairs. She feels her friend expects too much given her age and she is not much younger than the senior she is helping. She feels she is burning out. Return office visit in 4 months (2) GERD (gastroesophageal reflux disease): ?Code(s): K21.9 - Gastro-esophageal reflux disease without esophagitis ?Qualifiers: ?Esophagitis presence:?without esophagitis? Qualified Code(s):?K21.9 - Gastro-esophageal reflux disease without esophagitis (3) Tubular adenoma of colon: ?Comment: Last scope 2019 repeat in 5 years or 2024 aeb ?Code(s): D12.6 - Benign neoplasm of colon, unspecified ? ? ? Medications: Discontinued prednisone ?? Disc ontinued Reason:? Doctor's Order 60 mg (3 x 20 mg) PO DAILY 9 tabs 0R F ? ? hyoscyamine sulfat e ?? Discontinued Reason:? Doctor's Order 0.125 mg? PO BID-Q ID PRN 30 tabs 1RF Abd pain ? ? polyethylene glyco l 3350 (Miralax) ? ? Discontinued [place] son:? Doctor's Ord er 17 grams? PO DAILY 238 grams 0RF ? ? psyllium ?? start with 1/2 tbsp and then increase to 1 tbsp in 3-4 days. Mix into at least 8 oz of water or juice before admin is[place] ?? Discon tinued Reason:? Do ctor's Order 1 tbsp? PO DAILY 3 00 grams 0RF ? ? CORRESPONDENCE On 10/07/22 @ 13:51 Viola Richards Wrote To Shagufta Lee she says thank you! On 10/07/22 @ 13:48 Shagufta Lee Wrote To Viola Richards This usually only works for IBS diarrhea dominant she has constipation but I will try sending it.? Now will On 10/07/22 @ 13:43 Viola Richards Wrote To Shagufta Lee It seems patient has been going through an IBS flare up for approximately a week. patient thinks its affecting her blood pressure as she is experiencing increased stress. patient states her friend was prescribed an antibiotic as she also has IBS and that helped calming down. I'm assuming that patient is referring to Xifaxin? patient reports she has has several episodes of loose stools/diarrhea, cramping, pain, and increased flatulence. please advise TODAY'S VISIT Her neurodermatitis has been very bad this summer. She also continues with her XAVIER on the right side and room spinning dizziness. She IS seeing Dr. Gomez for her lungs and will be having a test with this office 01/06. She says Dr. Gomez put a name to my problem of hitting by high notes, it is something catching in between my esophagus and my voice. I don't see this in his note. She takes the omeprazole prn when she has problems. She continues on her creon, but she is unclear on how consistent she is with the dosing. She continues with her IBS, she thinks it is driven by sugar intake. She successfully treated it with Imodium and simethicone. In the past she was using peppermint. She is not due for scope until 2024. ROV 6 mos. PFSH Medical History Acute sinusitis Bronchitis with flu Cough Fibrocystic breast disease GERD (gastroesophageal reflux disease) History of chronic rhinitis Hx of irritable bowel syndrome Hx of osteopenia Irritable bowel syndrome with constipation Low back pain Lumbar disc disease Neurodermatitis Osteoarthritis Panic disorder PTSD (post-traumatic stress disorder) Screening for diabetes mellitus Tubular adenoma of colon Surgical History H/O colonoscopy with polypectomy History of colonoscopy Hx of cholecystectomy Hx of esophagogastroduodenoscopy Hx of tonsillectomy Family History Father Alcoholic Arthritis Mother Schizophrenia Heart failure Brother Hep C w/ coma, chronic Drug addict Cancer Other Mental health disorder Substance use disorder Social History Household Members: Friend(s) and None Housing: Other Alcohol intake: current Alcohol intake frequency: holidays/special occasions only Alcohol type: wine Patient Tobacco Use Status: Never used Tobacco e-Cigarette/Vaping Use: Never Used Second Hand Smoke Exposure: No service: No Current occupational status: retired Cognitive needs: No Hearing needs: No Vision needs: No Review of Systems Const Denies fatigue, Denies fever(s), Denies night sweats, Denies poor appetite and Denies weight loss ENT Reports Normal hearing present, Denies dental pain, Denies dysphagia, Denies hearing loss, Denies mouth pain, Denies odynophagia, Denies throat swelling, Denies tongue swelling and Reports other (Dentition adequate) Card Reports no additional complaints Resp Reports no additional complaints GI Denies abdominal pain, Denies melena, Reports bloating, Denies hematochezia, Denies constipation, Reports GI cramping, Denies dysphagia, Denies excessive flatus, Denies early satiety, Denies heartburn, Reports diarrhea, Denies nausea, Denies odynophagia, Denies vomiting and Denies hematemesis Skin/Breast Reports pruritus, Reports lesions, Reports rash and Denies jaundice Neuro Reports Normal hearing present and Denies Abnormal speech present Psych Reports anxiety Endo Denies fatigue Aller/Immun Denies throat swelling and Denies tongue swelling Physical Exam Vital Signs: Last Vital Signs BP 125/72 12/21/22 11:21 Const General: cooperative, no acute distress, well developed and well groomed Nutritional Appearance: well nourished and overweight Orientation/consciousness: oriented to person, oriented to place and oriented to time Limitations: No language barrier HEENT Head: Yes normocephalic and Yes atraumatic Eyes General: appearance normal, both eyes and all related structures Pupils: Equal, round and reactive pupils present Neck Neck: Yes normal visual inspection and Yes no lymphadenopathy Thyroid: Thyroid normal Resp Effort & Inspection: normal respiratory effort and able to speak in complete sentences Auscultation: clear to auscultation bilaterally Cardio Rate: regular rate Rhythm: regular rhythm Heart sounds: Normal, physiologic split S2 sound present Peripheral pulses: radial pulses present and posterior tibial pulses present GI Inspection: No distended and No Abdominal panniculus present Palpation (GI): Soft to palpation, nontender, no guarding, not rigid and No hepatosplenomegaly present Percussion: Yes normal to percussion Auscultation: normal bowel sounds Rectal Exam - Female: deferred Skin General skin exam: no rashes or lesions noted, turgor normal, skin not dry, no jaundice, No spider nevi and no striae Rashes: no rashes Nails: normal Neuro General: oriented to person, oriented to place and oriented to time Cranial nerves: Yes Equal, round and reactive pupils present and Yes Normal hearing present Speech: No Abnormal speech present Extrem General: Yes normal to inspection, No clubbing, No cyanosis and No edema Psych Appearance: grossly normal and well kempt Mental Status: mental status grossly normal Speech and movement: Pressured speech present Affect: Animated affect present Attitude: cooperative Thought process: Normal thought process present and not confabulating Thought content: Normal thought content present Insight: Limited insight present (Psych) Judgement: Limited judgement present (Psych) Assessment & Plan Assessment & Plan (1) Irritable bowel syndrome with constipation: Code(s): K58.1 - Irritable bowel syndrome with constipation Plan: Her neurodermatitis has been very bad this summer. She also continues with her XAVIER on the right side and room spinning dizziness. She IS seeing Dr. Gomez for her lungs and will be having a test with this office 01/06. She says Dr. Gomez put a name to my problem of hitting by high notes, it is something catching in between my esophagus and my voice. I don't see this in his note. She takes the omeprazole prn when she has problems. She continues on her creon, but she is unclear on how consistent she is with the dosing. She continues with her IBS, she thinks it is driven by sugar intake. She successfully treated it with Imodium and simethicone. In the past she was using peppermint. She is not due for scope until 2024. ROV 6 mos. (2) GERD (gastroesophageal reflux disease): Code(s): K21.9 - Gastro-esophageal reflux disease without esophagitis Qualifiers: Esophagitis presence: without esophagitis Qualified Code(s): K21.9 - Gastro-esophageal reflux disease without esophagitis Medications: New omeprazole 20 mg PO DAILY 30 caps 6RF Refilled [id number]-rzknzkby-uwezkic 6,000-19,000 -30,000 unit (Creon) do not exceed 10,000 unit/kg lipase per 24 hrs 1 cap PO .TIDAC 90 caps 6RF K58.2 - Mixed irritable bowel syndrome Coding Level of Care Code Est Pt Level 3 (71638) Diagnoses Irritable bowel syndrome with constipation K58.1 GERD (gastroesophageal reflux disease) K21.9 Esophagitis presence: without esophagitis
[2022-12-21 11:21] VITALS: BP 125/72
== END 2022-12-21 11:58 | disposition home or self-care (01) ==
PROVIDERS: PCP Internal Medicine; Visit Provider Nurse Practitioner
DX: K58.1 Irritable bowel syndrome with constipation (principal); K21.9 Gastro-esophageal reflux disease without esophagitis
CPT/HCPCS: 99213

== ENCOUNTER → 2022-12-21 11:04 | Outpatient (BNVA) | payer MEDICARE, MEDICAID, SELFPAY | PROVIDERS: PCP Internal Medicine; Visit Provider Nurse Practitioner | DX: K58.1 Irritable bowel syndrome with constipation (principal); K21.9 Gastro-esophageal reflux disease without esophagitis | CPT/HCPCS: 99212 ==

== ENCOUNTER 2023-01-06 10:58 | Outpatient (REF) | payer MEDICARE, MEDICAID, SELFPAY ==
--- NOTE | 2023-01-06 12:06 | PFT_ITS ---
FLOWS: 1. FEV1 76% of predicted at 1.44 L. 2. FVC 66% of predicted at 1.65 L. 3. FEV1 to FVC ratio of 0.87. 4. No bronchodilator response. LUNG VOLUMES: 1. Total lung capacity 78% of predicted at 3.63 L. 2. Residual volume 81% of predicted at 1.71 L. 3. Slow vital capacity 77% of predicted at 1.92 L. 4. Expiratory reserve volume 59% of predicted at 0.30 L. 5. Diffusion capacity is mildly decreased, diffusion capacity corrects to normal after adjustment for alveolar ventilation. IMPRESSION: Moderate restrictive ventilatory defect. No bronchodilator response. Combination of restrictive ventilatory defect with decreased diffusion capacity suggests underlying pulmonary parenchymal disease. Clinical correlation is advised. MD JOSEPH Maddox/MODL / [id number]
== END 2023-01-06 10:59 | disposition home or self-care (01) ==
LOC: HO.RESP 10:58
PROVIDERS: PCP Internal Medicine; Visit Provider Internal Medicine
DX: R05.9 Cough, unspecified (principal); R06.02 Shortness of breath
CPT/HCPCS: 94010; 94727; 94729

== ENCOUNTER 2023-01-13 10:42 | Outpatient (AMB) | payer MEDICARE, MEDICAID, SELFPAY ==
[2023-01-13 11:18] VITALS: BP 132/78; PULSE 58; O2SAT 96
--- NOTE | 2023-01-13 11:18 | A.OFFVIS_ITS ---
Intake Vital Signs 01/13/23 11:18 Height 5 ft BMI Reason not done Patient refused/unable BP 132/78 Blood Pressure Location Rt brachial Position Sitting Pulse 58 Pulse Source Pulse Oximeter Pulse Oximetry (%) 96 Oxygen Delivery Method Room Air Intake Visit Reasons: copd Electronic Publishing Specialist Required: No Screen Printing Machine Loader Unloader: Screen Printing Machine Loader Unloader offered & declined Accompanied by: Self / Same As Patient Allergies alcohol [ALCOHOL] Allergy (Unknown, Verified 01/13/23 11:45) ON SKIN - HIVES , SWELLING gluten [GLUTEN] Allergy (Unknown, Verified 01/13/23 11:45) HIVES latex [LATEX] Allergy (Unknown, Verified 01/13/23 11:45) HIVES,SWELLING mold Allergy (Unknown, Verified 01/13/23 11:45) HIVES yeast, dried [YEAST] Allergy (Unknown, Verified 01/13/23 11:45) HIVES dairy Allergy (Mild, Uncoded 01/13/23 11:45) Hives smoked meat Allergy (Mild, Uncoded 01/13/23 11:45) Hives Medication List - Last Reconciled 01/13/23 by Duc Gomez MD cetirizine 10 mg PO DAILY jhqhfo-vkfldhtw-xvgitib 6,000-19,000 -30,000 unit (Creon) 1 cap PO .TIDAC omeprazole 20 mg PO DAILY zolpidem 5 mg PO BEDTIME PRN Do you need a note to return to daycare/school/sports/work: No HPI copd HPI Details 72 years old very pleasant female is her e for follow-up, after pulmonary function test. In May 2021, she did have COVID-19 infection and was treated for symptoms of acute bronchitis. Since then she continues to have brief episodes of feeling weak tired and short of breath, and at that time she feels as if there is some mucus stock in the upper airways. Be cites that she does not have any episodes of asthma, or recurrent cough. [facility] Medical History (Updated 01/13/23 @ 11:53 by Duc oGmez MD) Asthma Restrictive lung disease Cough Screening for diabetes mellitus Low back pain Acute sinusitis Irritable bowel syndrome with constipation Tubular adenoma of colon Hx of osteopenia Lumbar disc disease Bronchitis with flu GERD (gastroesophageal reflux disease) PTSD (post-traumatic stress disorder) Panic disorder History of chronic rhinitis Fibrocystic breast disease Osteoarthritis Hx of irritable bowel syndrome Neurodermatitis Surgical History History of colonoscopy Hx of esophagogastroduodenoscopy Hx of tonsillectomy Hx of cholecystectomy H/O colonoscopy with polypectomy Family History Father Alcoholic Arthritis Mother Schizophrenia Heart failure Brother Hep C w/ coma, chronic Drug addict Cancer Other Mental health disorder Substance use disorder Social History Household Members: Friend(s) and None Housing: Other Alcohol intake: current Alcohol intake frequency: holidays/special occasions only Alcohol type: wine Patient Tobacco Use Status: Never used Tobacco e-Cigarette/Vaping Use: Never Used Second Hand Smoke Exposure: No service: No Current occupational status: retired Cognitive needs: No Hearing needs: No Vision needs: No Review of Systems Const All systems reviewed & are unremarkable except as noted in HPI and below Eyes Reports no additional complaints ENT Reports dysphagia (OCCASIONAL, MILD) and Reports nasal congestion (MILD OFF AND ON) Card Denies chest pain, Denies irregular heart rhythm and Denies leg edema Resp Reports as per HPI GI Reports GI cramping, Reports dysphagia (OCCASIONAL, MILD) and Reports dyspepsia Reports no additional complaints Musc Reports no additional complaints Skin/Breast Reports other (LONGSTANDING HISTORY OF SKIN RASH, DIAGNOSED NEURODERMATITIS.) Neuro Reports no additional complaints Psych Reports anxiety and Reports panic attacks (VERY MILD TENDENCY TO HAVE PANIC ATTACKS) Endo Reports no additional complaints Moshe/Lymph Reports no additional complaints Aller/Immun Reports no additional complaints Physical Exam Vital Signs: Last Vital Signs Pulse 58 01/13/23 11:18 BP 132/78 01/13/23 11:18 Pulse Ox 96 01/13/23 11:18 Oxygen Delivery Method Room Air 01/13/23 11:18 Const General: healthy appearing, comfortable, no acute distress, alert and awake Orientation/consciousness: patient oriented x3 HEENT Head: Yes normal to inspection General nose exam: No nasal polyps present and No nasal discharge present Face and sinus: Yes sinuses nontender Mouth: oropharynx normal Throat: Yes posterior oropharynx normal Eyes General: appearance normal, both eyes and all related structures Neck Neck: Yes normal visual inspection, Yes no lymphadenopathy, Yes trachea midline and Yes no JVD Thyroid: Thyroid normal Chest Chest palpation & inspection: normal inspection of the chest, normal palpation of entire chest wall and no tenderness Resp Effort & Inspection: normal respiratory effort Auscultation: clear to auscultation bilaterally, no crackles and no wheezes Cardio Palpation: normal PMI Rate: regular rate Rhythm: regular rhythm Heart sounds: no gallops and no murmurs Peripheral pulses: Peripheral pulses 2+ throughout GI Palpation (GI): Soft to palpation, nontender, No hepatosplenomegaly present and no masses Auscultation: normal bowel sounds Back/Spine/Pelvis Thoracic/Lumbar Spine: thoracic and lumbar spine normal to inspection Skin General skin exam: no rashes or lesions noted and other (MULTIPLE EXCORIATED AREAS ON THE FRONT OF THE CHEST AND BACK.) Neuro General: patient oriented x3 and no focal motor deficits Cranial nerves: Yes CN's II-XII intact bilaterally Extrem General: Yes normal to inspection, Yes no clubbing, cyanosis or edema and Yes no calf tenderness Psych Appearance: grossly normal and well kempt Speech and movement: Normal speech and movement present Results Reviewed Results Reviewed: Chest x-ray essentially normal. PULMONARY FUNCTION TEST ON 01/06/2023 LUNG VOLUMES, TLC 78 INDICATING MILD RESTRICTIVE DISORDER. FVC 66% ALSOC/W MILD RESTRICTIVE DISORDER. THE FLOW VOLUMES WERE NORMAL Assessment & Plan Assessment & Plan (1) Restrictive lung disease: Comment: SHE HAS A VERY MILD DEGREE OF RESTRICTIVE LUNG DISEASE, MOST LIKELY POST COVID INFECTION. PATIENT EXPLAINED ABOUT THIS FINDING, NO SPECIFIC TREATMENT. NEEDED FOR THIS SHE SHOULD TRY TO DO DEEP BREATHING EXERCISES ON A DAILY BASIS Code(s): J98.4 - Other disorders of lung (2) Asthma: Comment: EPISODES OF FEELING LIKE BRONCHOSPASM, AND SOME MUCUS IN THE UPPER AIRWAYS, MOST LIKELY DUE TO MILD INTERMITTENT BRONCHOSPASMS . SHE IS EXPLAINED ABOUT THIS AND REASSURED. MAY USE 1 OR 2 PUFFS OF PROAIR ONLY P.R.N. WHEN SHE HAS THIS KIND OF EPISODE. Code(s): J45.909 - Unspecified asthma, uncomplicated Medications: New albuterol sulfate 90 mcg/actuation 2 puffs inhalation Q4-6H PRN 6.7 grams 2RF shortness of breath or wheezing 30 days Coding Level of Care Code Est Pt Level 3 (60675) Diagnoses Restrictive lung disease J98.4 Asthma J45.909
== END 2023-01-13 11:46 | disposition home or self-care (01) ==
PROVIDERS: PCP Internal Medicine; Visit Provider Internal Medicine
DX: J98.4 Other disorders of lung (principal); J45.909 Unspecified asthma, uncomplicated
CPT/HCPCS: 99213

== ENCOUNTER → 2023-01-13 10:42 | Outpatient (BNVA) | payer MEDICARE, MEDICAID, SELFPAY | PROVIDERS: PCP Internal Medicine; Visit Provider Internal Medicine | DX: J44.9 Chronic obstructive pulmonary disease, unspecified (principal); J98.4 Other disorders of lung | CPT/HCPCS: 99212 ==

== ENCOUNTER 2023-02-28 10:42 | Outpatient (AMB) | payer MEDICARE, MEDICAID, SELFPAY ==
[2023-02-28 10:44] VITALS: BP 136/72; PULSE 54; O2SAT 100
--- NOTE | 2023-02-28 10:44 | A.OFFPC_ITS ---
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 Required: No Allergies alcohol [ALCOHOL] Allergy (Unknown, Verified 02/28/23 10:44) ON SKIN - HIVES , SWELLING gluten [GLUTEN] Allergy (Unknown, Verified 02/28/23 10:44) HIVES latex [LATEX] Allergy (Unknown, Verified 02/28/23 10:44) HIVES,SWELLING mold Allergy (Unknown, Verified 02/28/23 10:44) HIVES yeast, dried [YEAST] Allergy (Unknown, Verified 02/28/23 10:44) HIVES dairy Allergy (Mild, Uncoded 02/28/23 10:44) Hives smoked meat Allergy (Mild, Uncoded 02/28/23 10:44) Hives Tobacco use date assessed: 02/28/23 Fall risk assessment: 1 Fall in past year Last assessed Fall Risk: 02/28/23 Dental Screening Dental Screen Date: 02/28/23 Did you have a dental visit in the last 12 months?: Yes Did you have a dental problem in the last 6 months where you did not have access to dental care?: No Was dental information given to patient?: Patient has dentist HPI cholesterol HPI Details 72-year-old female with a history of bip olar disorder hypercholesterolemia irritable bowel syndrome GERD osteoporosis coming in for follow-up. Bone density is due, colonoscopy 2024 patient is here for follow-up. Review of the notes follows up with Pulmonary for the COPD since COVID-19 infection patient had as restrictive lung disease advised to do deep breathing exercise for the asthma patient was prescribed albuterol.. Patient also follows up with Gastroenterology for IBS omeprazole and Creon. November 2022 was treated for UTI with Macro[facility] Medical History (Updated 01/13/23 @ 11:53 by Duc Gomez MD) Asthma Restrictive lung disease Cough Screening for diabetes mellitus Low back pain Acute sinusitis Irritable bowel syndrome with constipation Tubular adenoma of colon Hx of osteopenia Lumbar disc disease Bronchitis with flu GERD (gastroesophageal reflux disease) PTSD (post-traumatic stress disorder) Panic disorder History of chronic rhinitis Fibrocystic breast disease Osteoarthritis Hx of irritable bowel syndrome Neurodermatitis Surgical History History of colonoscopy Hx of esophagogastroduodenoscopy Hx of tonsillectomy Hx of cholecystectomy H/O colonoscopy with polypectomy Family History Father Alcoholic Arthritis Mother Schizophrenia Heart failure Brother Hep C w/ coma, chronic Drug addict Cancer Other Mental health disorder Substance use disorder Social History Household Members: Friend(s) and None Housing: Other Alcohol intake: current Alcohol intake frequency: holidays/special occasions only Alcohol type: wine Patient Tobacco Use Status: Never used Tobacco e-Cigarette/Vaping Use: Never Used Second Hand Smoke Exposure: No service: No Current occupational status: retired Cognitive needs: No Hearing needs: No Vision needs: No Questionnaire Thrive Questionnaire Date Thrive assessed: 11/18/22 AUDIT C Alcohol Use Questionnaire (AUDIT-C) 1. How often do you have a drink containing alcohol?: Never 2. How many drinks containing alcohol do you have on a typical day when you are drinking?: 1 or 2 (0) 3. How often do you have six or more drinks on one occasion?: Never Total Score: 0 Score Reviewed/Action Taken: No MEENU-7 AMB Questionnaire MEENU-7 Date MEENU - 7 assessed: 11/18/22 Source: Developed by Drs. Diogenes Emanuel, Mecry Khalil, Raman Madsen and colleagues, with an educational lisa from [employer]. Physical exam (Primary Care) Vital Signs: Last Vital Signs Pulse 54 02/28/23 10:44 BP 136/72 02/28/23 10:44 Pulse Ox 100 02/28/23 10:44 Oxygen Delivery Method Room Air 02/28/23 10:44 Tobacco/Smoking Status: Tobacco use Status Tobacco use date assessed 02/28/23 02/28/23 10:44 Patient Tobacco Use Status Never used Tobacco 02/28/23 10:44 e-Cigarette/Vaping Use Never Used 02/28/23 10:44 Thrive Assessment: Date of Thrive Assessment Date Thrive assessed 11/18/22 02/28/23 10:44 Const General: alert; No acute distress Eyes Conjunctivae: conjunctivae normal Resp Auscultation: clear to auscultation bilaterally Cardio Rate: regular rate Rhythm: regular rhythm GI Inspection: Yes normal to inspection Extrem General: Yes normal to inspection and No edema Office Procedures Flu Questionnaire Does the patient have a severe egg allergy?: No Does the patient have severe life threatening allergies?: No Does the patient have a fever or illness today?: No Has the patient ever had Guillain-[place] Syndrome?: No Has the patient ever had any past reaction to a flu shot?: No Immunizations flu vacc [id number] 6mos up(PF) 60 mcg(15 mcgx4)/0.5 mL IM syringe Performing Provider: Reynaldo Strong MD [facility] Administered by: TIAGO Biggs on 02/28/23 11:49 Dose Route Admin Location Dispensed Lot Number Expiration Date NDC Administrative Clerk 0.5 mL IM Left Deltoid 0.5 mL [id number] 11/06/23 76706-113-60 [employer] VIS Given Date VIS Provided VIS Publication Date 02/28/23 Single Vaccine 20 Eligibility Eligibility Date Funding Source Not [facility] Eligible 02/28/23 Private Assessment and Plan Assessment & Plan (1) Asthma: Comment: EPISODES OF FEELING LIKE BRONCHOSPASM, AND SOME MUCUS IN THE UPPER AIRWAYS, MOST LIKELY DUE TO MILD INTERMITTENT BRONCHOSPASMS . SHE IS EXPLAINED ABOUT THIS AND REASSURED. MAY USE 1 OR 2 PUFFS OF PROAIR ONLY P.R.N. WHEN SHE HAS THIS KIND OF EPISODE. Code(s): J45.909 - Unspecified asthma, uncomplicated Plan: Patient follows up with Pulmonary and has been prescribed albuterol rescue. has not been using the inhaler (2) Osteoporosis: Code(s): M81.0 - Age-related osteoporosis without current pathological fracture Plan: Reminded about bone density. mar 2023 (3) Irritable bowel syndrome with constipation: Code(s): K58.1 - Irritable bowel syndrome with constipation Plan: Patient follow-up with Gastroenterology has been placed on Creon (4) Hypercholesterolemia: Code(s): E78.00 - Pure hypercholesterolemia, unspecified Plan: Avoid fried foods, chicken skin, eggs, butter margarine, pastries and meat. Be it pork or beef they have a lot of cholesterol LDL goal of less than 130 and triglyceride of less than 150. Patient is reminded about blood work (5) Bipolar 1 disorder: Comment: [facility] counselling once a week (12/2020) Code(s): F31.9 - Bipolar disorder, unspecified Plan: Continue to follow-up with counseling and therapy (6) GERD (gastroesophageal reflux disease): Code(s): K21.9 - Gastro-esophageal reflux disease without esophagitis Qualifiers: Esophagitis presence: without esophagitis Qualified Code(s): K21.9 - Gastro-esophageal reflux disease without esophagitis Plan: Avoid the foods that causes that usually spicy foods, tomato products, juices, coffee, soda and foods that your sensitive to. After eating do not lie down, allow 3-4 hours before in lie down. And keep the head of bed above 30 degrees to avoid the acid from going up. Orders: Orders Influenza [id number] Immunization Today Z23 - Encounter for immunization Coding Level of Care Code Est Pt Level 4 (18245) Diagnoses Asthma J45.909 Osteoporosis M81.0 Irritable bowel syndrome with constipation K58.1 Hypercholesterolemia E78.00 Bipolar 1 disorder F31.9 Gastroesophageal reflux disease without esophagitis K21.9 Esophagitis presence: without esophagitis
== END 2023-02-28 11:56 | disposition home or self-care (01) ==
PROVIDERS: PCP Internal Medicine; Visit Provider Internal Medicine
DX: J45.909 Unspecified asthma, uncomplicated (principal); M81.0 Age-related osteoporosis without current pathological fracture; F31.9 Bipolar disorder, unspecified; K58.1 Irritable bowel syndrome with constipation; Z23 Encounter for immunization; E78.00 Pure hypercholesterolemia, unspecified; K21.9 Gastro-esophageal reflux disease without esophagitis
CPT/HCPCS: 90471; 90686; 99214

== ENCOUNTER 2023-03-09 10:01 | Outpatient (AMB) | payer MEDICARE, MEDICAID, SELFPAY ==
--- NOTE | 2023-03-09 10:14 | MHC.OFFVIS ---
Intake Vital Signs 03/09/23 10:19 Height 5 ft BMI Reason not done Patient refused/unable BP not taken reason Patient Refused Intake Visit Reasons: Discuss EGD Intake Note: Damari presents in the office today in follow up of GERD. CC: She reports she was told by ENT to discuss EGD with GI. Patient states she is not having an EGD and she is not going back to [facility] doctor. 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 Required: No Accompanied by: Self / Same As Patient Allergies alcohol [ALCOHOL] Allergy (Unknown, Verified 03/09/23 10:24) ON SKIN - HIVES , SWELLING gluten [GLUTEN] Allergy (Unknown, Verified 03/09/23 10:24) HIVES latex [LATEX] Allergy (Unknown, Verified 03/09/23 10:24) HIVES,SWELLING mold Allergy (Unknown, Verified 03/09/23 10:24) HIVES yeast, dried [YEAST] Allergy (Unknown, Verified 03/09/23 10:24) HIVES dairy Allergy (Mild, Uncoded 02/28/23 10:44) Hives smoked meat Allergy (Mild, Uncoded 02/28/23 10:44) Hives Medication List - Last Reconciled 03/09/23 by BILLY Lazaro albuterol sulfate 90 mcg/actuation 2 puffs inhalation Q4-6H PRN 30 days cetirizine 10 mg PO DAILY fjkphe-hmhzlyqo-ydzhtnl 6,000-19,000 -30,000 unit (Creon) 1 cap PO .TIDAC omeprazole 20 mg PO DAILY simethicone (Gas Relief (simethicone)) 180 mg PO BID PRN zolpidem 5 mg PO BEDTIME PRN HPI Discuss EGD HPI Details Assessment & Plan (1) Irritable bowel syndrome with constipation: Code(s): K58.1 - Irritable bowel syndrome with constipation Plan: Her neurodermatitis has been very bad this summer. She also continues with her XAVIER on the right side and room spinning dizziness. She IS seeing Dr. Gomez for her lungs and will be having a test with this office 01/06. She says Dr. Gomez put a name to my problem of hitting by high notes, it is something catching in between my esophagus and my voice. I don't see this in his note. She takes the omeprazole prn when she has problems. She continues on her creon, but she is unclear on how consistent she is with the dosing. She continues with her IBS, she thinks it is driven by sugar intake. She successfully treated it with Imodium and simethicone. In the past she was using peppermint. She is not due for scope until 2024. ROV 6 mos. (2) GERD (gastroesophageal reflux disease): Code(s): K21.9 - Gastro-esophageal reflux disease without esophagitis Qualifiers: Esophagitis presence: without esophagitis Qualified Code(s): K21.9 - Gastro-esophageal reflux disease without esophagitis Medications: New omeprazole 20 mg PO DAILY 30 caps 6RF Refilled wvuats-hlttemcc-sp ylase 6,000-19,000 -30,000 unit (Cre on) do not exce ed 10,000 unit/kg lipase per 24 hrs 1 cap PO .TIDAC 90 caps 6RF K58.2 - Mixed irri table bowel syndro me TODAY'S VISIT The ear doctor messed me up, she says she was told she had acid throat She says it has a name but she can't remember it. She thinks is it zemper. which does not make sense to me. She us upset that this provider was supposed to look at her ears - but she referred her to gastro (which his us). She also was told by Dr. Gomez that she also has bronchial spasms since the COVID and she had a bad experience with a prior EGD so declines another. Davi salgado [facility] was the ENT and we will try get the records. She will be seeing Dr. Phillips next week and does not plan to go back to the [facility]. SHe felt they were pushing her to get hearing aids. She is generally doing better with her hoarseness and mucus in my throat. She feels that certain medications will set it off, recently she had a bad reaction to this years flu shot. In general, pills seem to irritate the condition. She is taking peppermint for her throat motility and IBS. She continues on her imodium and simethicone. ROV 6 mos. PFSH Medical History Asthma Restrictive lung disease Cough Screening for diabetes mellitus Low back pain Acute sinusitis Irritable bowel syndrome with constipation Tubular adenoma of colon Hx of osteopenia Lumbar disc disease Bronchitis with flu GERD (gastroesophageal reflux disease) PTSD (post-traumatic stress disorder) Panic disorder History of chronic rhinitis Fibrocystic breast disease Osteoarthritis Hx of irritable bowel syndrome Neurodermatitis Surgical History History of colonoscopy Hx of esophagogastroduodenoscopy Hx of tonsillectomy Hx of cholecystectomy H/O colonoscopy with polypectomy Family History Father Alcoholic Arthritis Mother Schizophrenia Heart failure Brother Hep C w/ coma, chronic Drug addict Cancer Other Mental health disorder Substance use disorder Social History Household Members: Friend(s) and None Housing: Other Alcohol intake: current Alcohol intake frequency: holidays/special occasions only Alcohol type: wine Patient Tobacco Use Status: Never used Tobacco e-Cigarette/Vaping Use: Never Used Second Hand Smoke Exposure: No service: No Current occupational status: retired Cognitive needs: No Hearing needs: No Vision needs: No Review of Systems Const Denies fatigue, Denies fever(s), Denies night sweats, Denies poor appetite and Denies weight loss ENT Denies Normal hearing present, Denies dental pain, Denies dysphagia, Reports otalgia, Denies hearing loss, Denies mouth pain, Denies odynophagia, Denies throat swelling, Denies tongue swelling and Reports other (Dentition adequate) Card Reports no additional complaints Resp Reports no additional complaints GI Denies abdominal pain, Denies melena, Denies bloating, Denies hematochezia, Denies constipation, Denies GI cramping, Denies dysphagia, Denies excessive flatus, Denies early satiety, Denies heartburn, Reports diarrhea, Denies nausea, Denies odynophagia, Denies vomiting and Denies hematemesis Skin/Breast Denies pruritus, Denies lesions, Denies rash and Denies jaundice Neuro Denies Normal hearing present and Denies Abnormal speech present Endo Denies fatigue Aller/Immun Denies throat swelling and Denies tongue swelling Physical Exam Const General: cooperative, no acute distress, well developed and well groomed Nutritional Appearance: average body habitus and well nourished Orientation/consciousness: oriented to person, oriented to place and oriented to time Limitations: No language barrier HEENT Head: Yes normocephalic and Yes atraumatic Ears: hearing grossly abnormal bilaterally Eyes General: appearance normal, both eyes and all related structures Pupils: Equal, round and reactive pupils present Neck Neck: Yes normal visual inspection and Yes no lymphadenopathy Thyroid: Thyroid normal Resp Effort & Inspection: normal respiratory effort and able to speak in complete sentences Auscultation: clear to auscultation bilaterally Cardio Rate: regular rate Rhythm: regular rhythm Heart sounds: Normal, physiologic split S2 sound present Peripheral pulses: radial pulses present and posterior tibial pulses present GI Inspection: No distended and No Abdominal panniculus present Palpation (GI): Soft to palpation, nontender, no guarding, not rigid and No hepatosplenomegaly present Percussion: Yes normal to percussion Auscultation: normal bowel sounds Rectal Exam - Female: deferred Skin General skin exam: no rashes or lesions noted, turgor normal, skin not dry, no jaundice, No spider nevi and no striae Rashes: no rashes Nails: normal Neuro General: oriented to person, oriented to place and oriented to time Cranial nerves: Yes Equal, round and reactive pupils present and No Normal hearing present Speech: No Abnormal speech present Extrem General: Yes normal to inspection, No clubbing, No cyanosis and No edema Psych Appearance: grossly normal and well kempt Mental Status: mental status grossly normal Speech and movement: Normal speech and movement present Affect: normal affect Attitude: cooperative Thought process: Normal thought process present and not confabulating Thought content: Normal thought content present Insight: Limited insight present (Psych) Judgement: Limited judgement present (Psych) Assessment & Plan Assessment & Plan (1) Irritable bowel syndrome with constipation: Code(s): K58.1 - Irritable bowel syndrome with constipation Plan: The ear doctor messed me up, she says she was told she had acid throat She says it has a name but she can't remember it. She thinks is it zemper. which does not make sense to me. She us upset that this provider was supposed to look at her ears - but she referred her to gastro (which his us). She also was told by Dr. Gomez that she also has bronchial spasms since the COVID and she had a bad experience with a prior EGD so declines another. Davi salgado [facility] was the ENT and we will try get the records. She will be seeing Dr. Phillips next week and does not plan to go back to the [facility]. SHe felt they were pushing her to get hearing aids. She is generally doing better with her hoarseness and mucus in my throat. She feels that certain medications will set it off, recently she had a bad reaction to this years flu shot. In general, pills seem to irritate the condition. She is taking peppermint for her throat motility and IBS. She continues on her imodium and simethicone. ROV 6 mos. (2) GERD (gastroesophageal reflux disease): Code(s): K21.9 - Gastro-esophageal reflux disease without esophagitis Qualifiers: Esophagitis presence: without esophagitis Qualified Code(s): K21.9 - Gastro-esophageal reflux disease without esophagitis Medications: Refilled omeprazole 20 mg PO DAILY 30 caps 6RF wsuhva-kabsbkko-gqjixrh 6,000-19,000 -30,000 unit (Creon) do not exceed 10,000 unit/kg lipase per 24 hrs 1 cap PO .TIDAC 90 caps 6RF K58.2 - Mixed irritable bowel syndrome Coding Level of Care Code Est Pt Level 3 (89747) Diagnoses Irritable bowel syndrome with constipation K58.1 Gastroesophageal reflux disease without esophagitis K21.9 Esophagitis presence: without esophagitis
== END 2023-03-09 11:34 | disposition home or self-care (01) ==
PROVIDERS: PCP Internal Medicine; Visit Provider Nurse Practitioner
DX: K58.1 Irritable bowel syndrome with constipation (principal); K21.9 Gastro-esophageal reflux disease without esophagitis
CPT/HCPCS: 99213

== ENCOUNTER → 2023-03-09 10:01 | Outpatient (BNVA) | payer MEDICARE, MEDICAID, SELFPAY | PROVIDERS: PCP Internal Medicine; Visit Provider Nurse Practitioner | DX: K58.1 Irritable bowel syndrome with constipation (principal); K21.9 Gastro-esophageal reflux disease without esophagitis; Z79.899 Other long term (current) drug therapy | CPT/HCPCS: 99212 ==

== ENCOUNTER 2023-04-13 10:59 | Outpatient (AMB) | payer MEDICARE, MEDICAID, SELFPAY ==
[2023-04-13 11:06] VITALS: BP 138/70; PULSE 90; O2SAT 100
--- NOTE | 2023-04-13 11:06 | A.OFFVIS_ITS ---
Intake Vital Signs 04/13/23 11:06 Height 5 ft BMI Reason not done Patient refused/unable BP 138/70 Blood Pressure Location Lt brachial Position Sitting Pulse 90 Pulse Source Pulse Oximeter Pulse Oximetry (%) 100 Oxygen Delivery Method Room Air Intake Visit Reasons: AWV Intake Note: Patient is here for an Annual Wellness Visit. 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 Allergies alcohol [ALCOHOL] Allergy (Unknown, Verified 04/13/23 11:26) ON SKIN - HIVES , SWELLING gluten [GLUTEN] Allergy (Unknown, Verified 04/13/23 11:) HIVES latex [LATEX] Allergy (Unknown, Verified 04/13/23 11:) HIVES,SWELLING mold Allergy (Unknown, Verified 04/13/23 11:) HIVES yeast, dried [YEAST] Allergy (Unknown, Verified 04/13/23:) HIVES dairy Allergy (Mild, Uncoded 04/13/23:) Hives smoked meat Allergy (Mild, Uncoded 04/13/23 11:) Hives Medication List - Last Reconciled 04/13/23 by MAGED Daniel albuterol sulfate 90 mcg/actuation 2 puffs inhalation Q4-6H PRN 30 days cetirizine 10 mg PO DAILY zhaniq-laupoikr-nydzmed 6,000-19,000 -30,000 unit (Creon) 1 cap PO .TIDAC omeprazole 20 mg PO DAILY simethicone (Gas Relief (simethicone)) 180 mg PO BID PRN zolpidem 5 mg PO BEDTIME PRN HPI AWV HPI Details Patient is a 72-year-old female who presents today for subsequent wellness visit. Patient of Dr. Strong. Today we discussed patient's need for tetanus vaccine, patient has declined. Patient has an upcoming bone density screen scheduled for 04/2023. We also discussed patient's need for diabetes screening, she was encouraged to complete her blood work. Mammogram normal 06/2022. [place] of care was reviewed with the patient and she was provided with a screening schedule. End of life planning was discussed with the patient and she was provided with healthcare proxy and [facility] forms. [facility] Medical History (Updated 04/13/23 @ 11:43 by MAGED Daniel) Urethritis Asthma Restrictive lung disease Cough Screening for diabetes mellitus Low back pain Acute sinusitis Irritable bowel syndrome with constipation Tubular adenoma of colon Hx of osteopenia Lumbar disc disease Bronchitis with flu GERD (gastroesophageal reflux disease) PTSD (post-traumatic stress disorder) Panic disorder History of chronic rhinitis Fibrocystic breast disease Osteoarthritis Hx of irritable bowel syndrome Neurodermatitis Surgical History History of colonoscopy Hx of esophagogastroduodenoscopy Hx of tonsillectomy Hx of cholecystectomy H/O colonoscopy with polypectomy Family History Father Alcoholic Arthritis Mother Schizophrenia Heart failure Brother Hep C w/ coma, chronic Drug addict Cancer Other Mental health disorder Substance use disorder Social History Household Members: Friend(s) and None Housing: Other Alcohol intake: current Alcohol intake frequency: holidays/special occasions only Alcohol type: wine Patient Tobacco Use Status: Never used Tobacco e-Cigarette/Vaping Use: Never Used Second Hand Smoke Exposure: No service: No Current occupational status: retired Cognitive needs: No Hearing needs: No Vision needs: No Questionnaire Medicare Wellness Checkup [age] What gender do you identify with?: female During the past 4 weeks, how much have you been bothered by emotional problems such as feeling anxious, depressed, irritable, sad or downhearted, and blue?: moderately During the past 4 weeks, has your physical & emotional health limited your social activities with family, friends, neighbors, or groups?: slightly During the past 4 weeks, how much bodily pain have you generally had?: no pain During the past 4 weeks, was someone available to help you if you needed & wanted help?: yes, a little During the past 4 weeks, what was the hardest physical activity you could do for at least 2 minutes?: heavy Can you get to places out of walking distance without help? (For eg., can you travel alone on buses, taxis or drive your car?): Yes Can you go shopping for groceries or clothes without someone's help?: Yes Can you prepare your own meals?: Yes Can you do your housework without help?: Yes Because of any health problems, do you need the help of another person with your personal care needs such as eating, bathing, dressing or getting around the house?: No Can you handle your own money without help?: Yes During the past 4 weeks, how would you rate your health in general?: good During the past 4 weeks how have things been going for you?: pretty well Are you having difficulties driving your car?: no Do you always fasten your seat belt when you are in a car?: yes, usually During past 4 weeks, have you been bothered by the following: never: Teeth or denture problems? and Problems using the telephone?, sometimes: Trouble eating well? and often: Falling or dizzy when standing up and Tiredness or fatigue? Have you fallen 2 or more times in the past year?: Yes Are you afraid of falling?: No Are you a smoker?: no During the past 4 weeks, how many drinks of wine, beer, or other alcoholic beverages did you have?: no alcohol at all Do you exercise for about 20 minutes 3 or more times a week?: yes, most of the time Have you been given information to help with the following?: no: Hazards in your house that might hurt you? and no: Keeping track of your medications? How often do you have trouble taking medicines the way you have been told to take them?: sometimes I take medicine as prescribed How confident are you that you can control & manage most of your health problems?: very confident What is your race?: White Mini Mental State Exam (MMSE) Orientation What is the (year) (season) (date) (day) (month)?: year, season, date, day and month Score Score: 5 Activity of Daily Living Bathing - sponge bath, tub bath or shower: receives no assistance (gets in/out by self, if usual bathing means Dressing - getting clothes from closets & drawers, including inner/outer garments & fasteners.: gets clothes & gets completely dressed without help Toileting - going to the 'toilet room' for urine/bowel elimination & cleaning self/arranging clothes: goes to toilet room, cleans self, arranges clothes without help Transfer: moves in & out of bed and chair without help (may use support object) Continence: controls urination/bowel movements completely by self Feeding: feeds self without help Total Score: 0 Information obtained from: patient Using telephone: independent Traveling: independent Shopping: independent Preparing meals: independent Housework: independent Taking medicine: independent Managing money: independent PHQ-9 Over the last 2 weeks, how often have you been bothered by any of the following problems? 1. Little interest or pleasure in doing things: not at all 2. Feeling down, depressed, or hopeless: not at all 3. Trouble falling or staying asleep, or sleeping too much: not at all 4. Feeling tired or having little energy: not at all 5. Poor appetite or overeating: not at all 6. Feeling bad about yourself - or that you are a failure or have let yourself or your family down: not at all 7. Trouble concentrating on things, such as reading the newspaper or watching television: not at all 8. Moving or speaking so slowly that other people could have noticed. Or the opposite - being so fidgety or restless that you have been moving around a lot more than usual: not at all 9. Thoughts that you would be better off or of hurting yourself in some way: not at all Total score: 0 Depression Screening Interpretation: Negative Depression Screening Done: Yes 68538 - PHQ-9 Billing: Yes Source: Developed by Drs. Diogenes Emanuel, Mercy Khalil, Raman Madsen and colleagues, with an educational lisa from [employer]. Physical Exam Vital Signs: Last Vital Signs Pulse 90 04/13/23 11:06 BP 138/70 04/13/23 11:06 Pulse Ox 100 04/13/23 11:06 Oxygen Delivery Method Room Air 04/13/23 11:06 Const General: cooperative and no acute distress Orientation/consciousness: patient oriented x3 HEENT Other: Whisper test: pass Neuro Other: Balance: Normal Get up and walk: able to Romberg: negative Tandem gait: able to General: patient oriented x3 Assessment & Plan Assessment & Plan (1) Adult general medical exam: Code(s): Z00.00 - Encounter for general adult medical examination without abnormal findings Plan: Repeat in 1 year (2) Screening for diabetes mellitus: Code(s): Z13.1 - Encounter for screening for diabetes mellitus Plan: Patient was encouraged to get her blood work done (3) Irritable bowel syndrome with both constipation and diarrhea: Code(s): K58.2 - Mixed irritable bowel syndrome Plan: Continue to follow-up with [facility] (4) Neurodermatitis: Code(s): L28.0 - Lichen simplex chronicus Plan: Continue to follow-up with Dermatology. (5) Bipolar 1 disorder: Comment: [facility] counselling once a week (12/2020) Code(s): F31.9 - Bipolar disorder, unspecified Plan: Stable (6) GERD (gastroesophageal reflux disease): Code(s): K21.9 - Gastro-esophageal reflux disease without esophagitis Qualifiers: Esophagitis presence: without esophagitis Qualified Code(s): K21.9 - Gastro-esophageal reflux disease without esophagitis Plan: Continue current treatment. Encouraged to avoid GERD trigger foods. (7) Depression: Code(s): F32.9 - Major depressive disorder, single episode, unspecified Qualifiers: Depression Type: other depression Qualified Code(s): F32.89 - Other specified depressive episodes Plan: Stable (8) Varicose veins of right lower extremity with inflammation: Code(s): I83.11 - Varicose veins of right lower extremity with inflammation Plan: Continue to follow-up with vascular provider Dr. Barcenas (9) Asthma: Comment: EPISODES OF FEELING LIKE BRONCHOSPASM, AND SOME MUCUS IN THE UPPER AIRWAYS, MOST LIKELY DUE TO MILD INTERMITTENT BRONCHOSPASMS . SHE IS EXPLAINED ABOUT THIS AND REASSURED. MAY USE 1 OR 2 PUFFS OF PROAIR ONLY P.R.N. WHEN SHE HAS THIS KIND OF EPISODE. Code(s): J45.909 - Unspecified asthma, uncomplicated Plan: Continue to follow-up with Dr. Gomez Albuterol inhaler p.r.n. (10) Restrictive lung disease: Comment: SHE HAS A VERY MILD DEGREE OF RESTRICTIVE LUNG DISEASE, MOST LIKELY POST COVID INFECTION. PATIENT EXPLAINED ABOUT THIS FINDING, NO SPECIFIC TREATMENT. NEEDED FOR THIS SHE SHOULD TRY TO DO DEEP BREATHING EXERCISES ON A DAILY BASIS Code(s): J98.4 - Other disorders of lung Plan: Same as above Quality Reporting (2019) Depression/Bipolar (159/160/161/177) PHQ-9: Total score: 0 Coding Level of Care Code Medicare Subsequent (G0439) Diagnoses Adult general medical exam Z00.00 Screening for diabetes mellitus Z13.1 Irritable bowel syndrome with both constipation and diarrhea K58.2 Neurodermatitis L28.0 Bipolar 1 disorder F31.9 Gastroesophageal reflux disease without esophagitis K21.9 Esophagitis presence: without esophagitis Other depression F32.89 Depression Type: other depression Varicose veins of right lower extremity with inflammation I83.11 Asthma J45.909 Restrictive lung disease J98.4 CPT Codes Advance Care Planning - Time spent: 1-15 minutes, not on file ([id number]) Advance Care Planning Date of discussion: 04/13/23 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
== END 2023-04-13 11:44 | disposition home or self-care (01) ==
PROVIDERS: PCP Internal Medicine; Visit Provider Nurse Practitioner Family
DX: Z00.00 Encounter for general adult medical examination without abnormal findings (principal); F31.9 Bipolar disorder, unspecified; Z13.1 Encounter for screening for diabetes mellitus; K58.2 Mixed irritable bowel syndrome; L28.0 Lichen simplex chronicus; K21.9 Gastro-esophageal reflux disease without esophagitis; F32.89 Other specified depressive episodes; I83.11 Varicose veins of right lower extremity with inflammation; J45.909 Unspecified asthma, uncomplicated; J98.4 Other disorders of lung
CPT/HCPCS: 1124F; G0439

== ENCOUNTER 2023-07-22 09:13 | Outpatient (AMB) | payer MEDICARE, MEDICAID, SELFPAY ==
[2023-07-22 09:21] VITALS: BP 126/74; PULSE 60; TEMP 36.7; O2SAT 97
--- NOTE | 2023-07-22 09:21 | MHC.OFFWIV ---
Intake Vital Signs 07/22/23 09:21 Height 5 ft BMI Reason not done Patient refused/unable BP 126/74 Blood Pressure Location Lt brachial Position Sitting Pulse 60 Pulse Source Pulse Oximeter Temp 98.1 F Temp Source Temporal Artery Scan Pulse Oximetry (%) 97 Oxygen Delivery Method Room Air Intake Visit Reasons: EP RT Eye Swelling, Itchy Intake Note: pt is here today for rt eye swelling itching started 4 days ago Patient Tobacco Use Status: Never used Tobacco Allergies alcohol [ALCOHOL] Allergy (Unknown, Verified 07/22/23 09:23) ON SKIN - HIVES , SWELLING gluten [GLUTEN] Allergy (Unknown, Verified 07/22/23 09:23) HIVES latex [LATEX] Allergy (Unknown, Verified 07/22/23 09:23) HIVES,SWELLING mold Allergy (Unknown, Verified 07/22/23 09:23) HIVES yeast, dried [YEAST] Allergy (Unknown, Verified 07/22/23 09:23) HIVES dairy Allergy (Mild, Uncoded 04/13/23 11:26) Hives smoked meat Allergy (Mild, Uncoded 04/13/23 11:26) Hives Do you need a note to return to daycare/school/sports/work: No HPI HPI Comments History of Present Illness Details 73 y/o female patient with c/o right eye itching and swelling x 4 days. Denies vision changes. Denies light sensitivity. [facility] Medical History (Updated 04/13/23 @ 11:43 by MAGED Daniel) Urethritis Asthma Restrictive lung disease Cough Screening for diabetes mellitus Low back pain Acute sinusitis Irritable bowel syndrome with constipation Tubular adenoma of colon Hx of osteopenia Lumbar disc disease Bronchitis with flu GERD (gastroesophageal reflux disease) PTSD (post-traumatic stress disorder) Panic disorder History of chronic rhinitis Fibrocystic breast disease Osteoarthritis Hx of irritable bowel syndrome Neurodermatitis Surgical History History of colonoscopy Hx of esophagogastroduodenoscopy Hx of tonsillectomy Hx of cholecystectomy H/O colonoscopy with polypectomy Family History Father Alcoholic Arthritis Mother Schizophrenia Heart failure Brother Hep C w/ coma, chronic Drug addict Cancer Other Mental health disorder Substance use disorder Social History Household Members: Friend(s) and None Housing: Other Alcohol intake: current Alcohol intake frequency: holidays/special occasions only Alcohol type: wine Patient Tobacco Use Status: Never used Tobacco e-Cigarette/Vaping Use: Never Used Second Hand Smoke Exposure: No service: No Current occupational status: retired Cognitive needs: No Hearing needs: No Vision needs: No Review of Systems Const All systems reviewed & are unremarkable except as noted in HPI and below Physical Exam Vital Signs: Last Vital Signs Temp 98.1 F 07/22/23 09:21 Pulse 60 07/22/23 09:21 BP 126/74 07/22/23 09:21 Pulse Ox 97 07/22/23 09:21 Oxygen Delivery Method Room Air 07/22/23 09:21 Const General: comfortable and no acute distress Orientation/consciousness: patient oriented x3 Eyes Eyelids: Yes eyelid abnormality (Right upper eyelid swollen and red) Conjunctivae: conjunctivae normal Sclerae: sclerae normal Corneas: corneas normal Pupils: Equal, round and reactive pupils present EOM: EOMs intact bilaterally Direct Ophthalmoscopy: normal light reflex Neuro General: patient oriented x3, gait normal and moves all extremities Cranial nerves: Yes Equal, round and reactive pupils present Psych Speech and movement: Normal speech and movement present Assessment & Plan Assessment & Plan (1) Blepharitis of eyelid of right eye: Code(s): H01.003 - Unspecified blepharitis right eye, unspecified eyelid Qualifiers: Blepharitis type: unspecified type Eyelid: upper Qualified Code(s): H01.001 - Unspecified blepharitis right upper eyelid Plan: - Take medication as directed. Medications: New erythromycin 1 appl ophthalmic-Right DAILY 7 days 3.5 grams 0RF H01.001 - Unspecified blepharitis right upper eyelid Coding Level of Care Code Est Pt Level 3 (46367) Diagnoses Blepharitis of right upper eyelid, unspecified type H01.001 Blepharitis type: unspecified type Eyelid: upper Time Spent (min) 15
== END 2023-07-22 09:45 | disposition home or self-care (01) ==
PROVIDERS: PCP Internal Medicine; Visit Provider Nurse Practitioner Family
DX: H01.001 Unspecified blepharitis right upper eyelid (principal)
CPT/HCPCS: 99213

== ENCOUNTER 2023-07-29 10:42 | Outpatient (REF) | payer MEDICARE, MEDICAID, SELFPAY | END 2023-07-29 10:43 | disposition home or self-care (01) | LOC: HO.MAMMO 10:42 | PROVIDERS: PCP Internal Medicine; Visit Provider Internal Medicine | DX: Z12.31 Encounter for screening mammogram for malignant neoplasm of breast (principal) | CPT/HCPCS: 77063; 77067 ==

== ENCOUNTER → 2023-07-29 11:00 | Outpatient (BNV) | payer MEDICARE, MEDICAID, SELFPAY | PROVIDERS: PCP Internal Medicine; Visit Provider Radiology Diagnostic Radiology | DX: Z12.31 Encounter for screening mammogram for malignant neoplasm of breast (principal) | CPT/HCPCS: 77063; 77067 ==

== ENCOUNTER 2023-10-07 12:08 | Outpatient (AMB) | payer MEDICARE, MEDICAID, SELFPAY ==
--- NOTE | 2023-10-07 12:25 | MHC.OFFVIS ---
Vital Signs 10/07/23 12:26 Height 5 ft BMI Reason not done Patient refused/unable BP 132/70 Blood Pressure Location Rt brachial Position Sitting Pulse 52 Comment Pt declined to stand on scale Intake Visit Reasons: 6 month follow up Intake Note: Damari presents in the office today in 6 months follow up of GERD and IBS with constipation. CC: She reports that with summer and heat her IBS starts acting up. She states that she has a lot of stress going on and her IBS comes and goes and is either going a lot or not going . Per patient she is trying to eat more fruits because she does not like fiber. She c/o muscle spasm that sometimes go up to her chest. 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 Accompanied by: Self / Same As Patient Allergies alcohol [ALCOHOL] Allergy (Unknown, Verified 10/07/23 12:31) ON SKIN - HIVES , SWELLING gluten [GLUTEN] Allergy (Unknown, Verified 10/07/23 12:31) HIVES latex [LATEX] Allergy (Unknown, Verified 10/07/23 12:31) HIVES,SWELLING mold Allergy (Unknown, Verified 10/07/23 12:31) HIVES yeast, dried [YEAST] Allergy (Unknown, Verified 10/07/23 12:31) HIVES dairy Allergy (Mild, Uncoded 04/13/23 11:26) Hives smoked meat Allergy (Mild, Uncoded 04/13/23 11:26) Hives HPI HPI 6 month follow up: Details: Assessment & Plan (1) Irritable bowel syndrome with constipation: Code(s): K58.1 - Irritable bowel syndrome with constipation Plan: The ear doctor messed me up, she says she was told she had acid throat She says it has a name but she can't remember it. She thinks is it zemper. which does not make sense to me. She us upset that this provider was supposed to look at her ears - but she referred her to gastro (which his us). She also was told by Dr. Gomez that she also has bronchial spasms since the COVID and she had a bad experience with a prior EGD so declines another. Davi salgado [facility] was the ENT and we will try get the records. She will be seeing Dr. Phillips next week and does not plan to go back to the [facility]. She felt they were pushing her to get hearing aids. She is generally doing better with her hoarseness and mucus in my throat. She feels that certain medications will set it off, recently she had a bad reaction to this years flu shot. In general, pills seem to irritate the condition. She is taking peppermint for her throat motility and IBS. She continues on her imodium and simethicone. ROV 6 mos. (2) GERD (gastroesophageal reflux disease): Code(s): K21.9 - Gastro-esophageal reflux disease without esophagitis Qualifiers: Esophagitis presence: without esophagitis Qualified Code(s): K21.9 - Gastro-esophageal reflux disease without esophagitis Medications: Refilled omeprazole 20 mg PO DAILY 30 caps 6RF uadfdw-rnlfxprt-rmumvqa 6,000-19,000 -30,000 unit (Creon) do not exceed 10,000 unit/kg lipase per 24 hrs 1 cap PO .TIDAC 90 caps 6RF K58.2 - Mixed irritable bowel syndrome TODAY'S VISIT She says the hot season drives her IBS because sweating makes me nervous and this is what drives her problems. She tries to eat a lot of high fiber cereals. She is currently moving her bowels several times a day - which she finds annoying but not unmanageable. She is also having a lot of spasms in the stomach area. This is especially bad at night. Otherwise she is doing okay. I will extend her a trial of bentyl 20mg. She continues on her creon and omeprazole. ROV 6 mos. [facility] Medical History Urethritis Asthma Restrictive lung disease Cough Screening for diabetes mellitus Low back pain Acute sinusitis Irritable bowel syndrome with constipation Tubular adenoma of colon Hx of osteopenia Lumbar disc disease Bronchitis with flu GERD (gastroesophageal reflux disease) PTSD (post-traumatic stress disorder) Panic disorder History of chronic rhinitis Fibrocystic breast disease Osteoarthritis Hx of irritable bowel syndrome Neurodermatitis Surgical History History of colonoscopy Hx of esophagogastroduodenoscopy Hx of tonsillectomy Hx of cholecystectomy H/O colonoscopy with polypectomy Family History Father Alcoholic Arthritis Mother Schizophrenia Heart failure Brother Hep C w/ coma, chronic Drug addict Cancer Other Mental health disorder Substance use disorder Social History Household Members: Friend(s) and None Housing: Other Alcohol intake: current Alcohol intake frequency: holidays/special occasions only Alcohol type: wine Patient Tobacco Use Status: Never used Tobacco e-Cigarette/Vaping Use: Never Used Second Hand Smoke Exposure: No service: No Current occupational status: retired Cognitive needs: No Hearing needs: No Vision needs: No Review of Systems Const Denies fatigue, Denies fever(s), Denies night sweats, Denies poor appetite and Denies weight loss Eyes Details: Glasses Reports requires corrective lenses ENT Reports Normal hearing present, Denies dental pain, Denies dysphagia, Denies hearing loss, Denies mouth pain, Denies odynophagia, Denies throat swelling, Denies tongue swelling and Reports other (Dentition adequate) Card Reports no additional complaints Resp Reports no additional complaints GI Details: Denies abdominal pain, Denies melena, Reports bloating, Denies hematochezia, Denies constipation, Reports GI cramping, Denies dysphagia, Denies excessive flatus, Denies early satiety, Reports heartburn, Denies diarrhea, Denies nausea, Denies odynophagia, Denies vomiting and Denies hematemesis Skin/Breast Denies pruritus, Denies lesions, Denies rash and Denies jaundice Neuro Reports Normal hearing present and Denies Abnormal speech present Psych Reports anxiety Endo Denies fatigue Aller/Immun Denies throat swelling and Denies tongue swelling Physical Exam Vital Signs: Last Vital Signs Pulse 52 10/07/23 12:26 BP 132/70 10/07/23 12:26 Const General: cooperative, no acute distress, well developed and well groomed Nutritional Appearance: average body habitus and well nourished Orientation/consciousness: oriented to person, oriented to place and oriented to time Limitations: No language barrier HEENT Head: Yes normocephalic and Yes atraumatic Eyes General: appearance normal, both eyes and all related structures Pupils: Equal, round and reactive pupils present Neck Neck: Yes normal visual inspection and Yes no lymphadenopathy Thyroid: Thyroid normal Resp Effort & Inspection: normal respiratory effort and able to speak in complete sentences Auscultation: clear to auscultation bilaterally Cardio Rate: regular rate Rhythm: regular rhythm Heart sounds: Normal, physiologic split S2 sound present Peripheral pulses: radial pulses present and posterior tibial pulses present GI Other: scabbing scattered across abd r/t her neuroderatitis Inspection: No distended and No Abdominal panniculus present Palpation (GI): Soft to palpation, nontender, no guarding, not rigid and No hepatosplenomegaly present Percussion: Yes normal to percussion Auscultation: normal bowel sounds Rectal Exam - Female: deferred Skin General skin exam: no rashes or lesions noted, turgor normal, skin not dry, no jaundice, No spider nevi and no striae Rashes: no rashes Nails: normal Neuro General: oriented to person, oriented to place and oriented to time Cranial nerves: Yes Equal, round and reactive pupils present and Yes Normal hearing present Speech: No Abnormal speech present Extrem General: Yes normal to inspection, No clubbing, No cyanosis and No edema Psych Appearance: grossly normal and well kempt Mental Status: mental status grossly normal Speech and movement: Normal speech and movement present Affect: normal affect Attitude: cooperative Thought process: Normal thought process present and not confabulating Thought content: Normal thought content present Insight: Fair insight present (Psych) and Limited insight present (Psych) Judgement: Fair judgement present (Psych) and Limited judgement present (Psych) Assessment & Plan Assessment & Plan (1) Irritable bowel syndrome with constipation: Code(s): K58.1 - Irritable bowel syndrome with constipation Category: Medical (2) GERD (gastroesophageal reflux disease): Code(s): K21.9 - Gastro-esophageal reflux disease without esophagitis Category: Medical Qualifiers: Esophagitis presence: without esophagitis Qualified Code(s): K21.9 - Gastro-esophageal reflux disease without esophagitis Plan She says the hot season drives her IBS because sweating makes me nervous and this is what drives her problems. She tries to eat a lot of high fiber cereals. She is currently moving her bowels several times a day - which she finds annoying but not unmanageable. She is also having a lot of spasms in the stomach area. This is especially bad at night. Otherwise she is doing okay. I will extend her a trial of bentyl 20mg. She continues on her creon and omeprazole. ROV 6 mos. Medications: New dicyclomine 20 mg PO QID 120 tabs 1RF 30 days Coding Level of Care Code Est Pt Level 3 (09722) Diagnoses Irritable bowel syndrome with constipation K58.1 Gastroesophageal reflux disease without esophagitis K21.9 Esophagitis presence: without esophagitis
[2023-10-07 12:26] VITALS: BP 132/70; PULSE 52
== END 2023-10-07 12:58 | disposition home or self-care (01) ==
PROVIDERS: PCP Internal Medicine; Visit Provider Nurse Practitioner
DX: K58.1 Irritable bowel syndrome with constipation (principal); K21.9 Gastro-esophageal reflux disease without esophagitis
CPT/HCPCS: 99213

== ENCOUNTER → 2023-10-07 12:08 | Outpatient (BNVA) | payer MEDICARE, MEDICAID, SELFPAY | PROVIDERS: PCP Internal Medicine; Visit Provider Nurse Practitioner | DX: K58.1 Irritable bowel syndrome with constipation (principal); K21.9 Gastro-esophageal reflux disease without esophagitis | CPT/HCPCS: 99212 ==

== ENCOUNTER 2024-01-02 14:45 | Outpatient (AMB) | payer MEDICARE, MEDICAID, SELFPAY ==
--- NOTE | 2024-01-02 14:48 | MHC.PC.OV ---
Vital Signs 01/02/24 14:49 Height 5 ft BMI Reason not done Patient refused/unable BP 132/68 Blood Pressure Location Lt brachial Position Sitting Pulse 103 H Pulse Source Pulse Oximeter Pulse Oximetry (%) 96 Oxygen Delivery Method Room Air Intake Visit Reasons: Pt in severe pain with her left elbow tendonitis Executor Of Estate Required: No Accompanied by: Self / Same As Patient Allergies alcohol [ALCOHOL] Allergy (Unknown, Verified 01/02/24 14:50) ON SKIN - HIVES , SWELLING gluten [GLUTEN] Allergy (Unknown, Verified 01/02/24 14:50) HIVES latex [LATEX] Allergy (Unknown, Verified 01/02/24 14:50) HIVES,SWELLING mold Allergy (Unknown, Verified 01/02/24 14:50) HIVES yeast, dried [YEAST] Allergy (Unknown, Verified 01/02/24 14:50) HIVES dairy Allergy (Mild, Uncoded 01/02/24 14:50) Hives smoked meat Allergy (Mild, Uncoded 01/02/24 14:50) Hives Medication List - Last Reconciled 01/02/24 by Marylu Garcia PA-C albuterol sulfate 90 mcg/actuation 2 puffs inhalation Q4-6H PRN 30 days dicyclomine 20 mg PO QID 30 days ltrcxi-vymisbbo-lofkzfn 6,000-19,000 -30,000 unit (Creon) 1 cap PO .TIDAC omeprazole 20 mg PO DAILY simethicone (Gas Relief (simethicone)) 180 mg PO BID PRN zolpidem 5 mg PO BEDTIME PRN Tobacco use date assessed: 01/02/24 Fall risk assessment: 1 Fall in past year Last assessed Fall Risk: 01/02/24 Dental Screening Dental Screen Date: 01/02/24 Did you have a dental visit in the last 12 months?: No Did you have a dental problem in the last 6 months where you did not have access to dental care?: No Was dental information given to patient?: Patient has dentist HPI Pt in severe pain with her left elbow tendonitis HPI Details 72-year-old female with a history of bipolar disorder, hypercholesterolemia, irritable bowel syndrome, GERD, osteoporosis last seen by Dr. Strong 02/28/2023 coming in for acute problem.?In review of the notes, patient was seen by GI September 2023 for follow up on IBS and GERD was trialed on Bentyl and continued on Creon and omeprazole with follow up in 6 months.?Patient completed mammogram 07/29/2023 BI-RADS 1 follow up in 1 year. Patient mentioned she was seen by [facility] who took x-rays of her elbow and diagnosed her with tennis elbow. She was treated conservatively with physical therapy referral, ice, rest and elbow brace. She does want a cortisone injection and is in the process of trying to schedule this appointment with [facility]. She does continue to have pain which improves with wrist bracing. She does continue to have left elbow pain that improves with the compression and bracing and has not started physical therapy yet. [facility] Medical History Urethritis Asthma Restrictive lung disease Cough Screening for diabetes mellitus Low back pain Acute sinusitis Irritable bowel syndrome with constipation Tubular adenoma of colon Hx of osteopenia Lumbar disc disease Bronchitis with flu GERD (gastroesophageal reflux disease) PTSD (post-traumatic stress disorder) Panic disorder History of chronic rhinitis Fibrocystic breast disease Osteoarthritis Hx of irritable bowel syndrome Neurodermatitis Surgical History History of colonoscopy Hx of esophagogastroduodenoscopy Hx of tonsillectomy Hx of cholecystectomy H/O colonoscopy with polypectomy Family History Father Alcoholic Arthritis Mother Schizophrenia Heart failure Brother Hep C w/ coma, chronic Drug addict Cancer Other Mental health disorder Substance use disorder Social History Household Members: Friend(s) and None Housing: Other Alcohol intake: current Alcohol intake frequency: holidays/special occasions only Alcohol type: wine Patient Tobacco Use Status: Never used Tobacco Tobacco use type: Cigarette e-Cigarette/Vaping Use: Never Used Second Hand Smoke Exposure: No service: No Current occupational status: retired Cognitive needs: No Hearing needs: No Vision needs: No Questionnaire PHQ-9 Over the last 2 weeks, how often have you been bothered by any of the following problems? 1. Little interest or pleasure in doing things: not at all 2. Feeling down, depressed, or hopeless: not at all 3. Trouble falling or staying asleep, or sleeping too much: not at all 4. Feeling tired or having little energy: not at all 5. Poor appetite or overeating: not at all 6. Feeling bad about yourself - or that you are a failure or have let yourself or your family down: not at all 7. Trouble concentrating on things, such as reading the newspaper or watching television: not at all 8. Moving or speaking so slowly that other people could have noticed. Or the opposite - being so fidgety or restless that you have been moving around a lot more than usual: not at all 9. Thoughts that you would be better off or of hurting yourself in some way: not at all Total score: 0 Depression Screening Interpretation: Negative Depression Screening Done: Yes 82111 - PHQ-9 Billing: Yes Source: Developed by Drs. Diogenes Emanuel, Mercy Khalil, Raman Madsen and colleagues, with an educational lisa from [employer]. Thrive Questionnaire Date Thrive assessed: 01/02/24 I am a: Patient What is your living situation today?: I have a steady place to live Within the past 12 months, did the food you bought not last and you didn't have the money to get more?: Never true Within the past 12 months, did you worry whether your food would run out before you got money to buy more?: Never true Do you have trouble paying for medicines?: No Do you have trouble getting transportation to medical appointments?: No Do you have trouble paying your heating and electricity bill?: No Do you have trouble taking care of your child, family member or friend?: No Do you have trouble with day-to-day activities such as bathing, preparing meals, shopping, managing finances, etc.?: No Are you currently unemployed and looking for a job?: No Are you interested in more education?: No THRIVE Score: 0 AUDIT C Alcohol Use Questionnaire (AUDIT-C) 1. How often do you have a drink containing alcohol?: Never 2. How many drinks containing alcohol do you have on a typical day when you are drinking?: 1 or 2 (0) 3. How often do you have six or more drinks on one occasion?: Never Total Score: 0 Score Reviewed/Action Taken: No MEENU-7 AMB Questionnaire MEENU-7 Date MEENU - 7 assessed: 01/02/24 Feeling nervous, anxious, or on edge: 0 = Not at all Not being able to stop or control worryin = Not at all Worrying too much about different things: 0 = Not at all Trouble relaxin = Not at all Being so restless that it is hard to sit still: 0 = Not at all Becoming easily annoyed or irritable: 0 = Not at all Feeling afraid as if something awful might happen: 0 = Not at all Total MEENU-7 score (0-4 normal; 5-9 mild; 10-14 moderate; 15-21 severe): 0 Source: Developed by Drs. Diogenes Emanuel, Mercy Khalil, Raman Madsen and colleagues, with an educational lisa from [employer]. MEENU-7 Assessment Billing MEENU-7 Assessment Tool: MEENU-7 Assessment 24782 Review of Systems Const Denies body aches, Denies chills, Denies fever(s) and Denies poor appetite Eyes Reports no additional complaints ENT Reports no additional complaints Card Reports no additional complaints Resp Reports no additional complaints GI Reports no additional complaints Reports no additional complaints Musc Details: Pain to lateral aspect of left elbow with extension and flexion and extension of left elbow and wrist Skin/Breast Reports system reviewed and no additional complaints, except as documented Psych Reports no additional complaints Physical exam (Primary Care) Vital Signs: Last Vital Signs Pulse 103 H 01/02/24 14:49 BP 132/68 01/02/24 14:49 Pulse Ox 96 01/02/24 14:49 Oxygen Delivery Method Room Air 01/02/24 14:49 Tobacco/Smoking Status: Tobacco use Status Tobacco use date assessed 01/02/24 01/02/24 14:55 Patient Tobacco Use Status Never used Tobacco 01/02/24 14:48 Tobacco use type Cigarette 01/02/24 14:55 e-Cigarette/Vaping Use Never Used 01/02/24 14:48 PHQ-9: PHQ-9 Score PHQ-9: Total score 0 01/02/24 14:55 Depression Screening Interpretation: Negative Thrive Assessment: Date of Thrive Assessment Date Thrive assessed 08/26/24 08/26/24 14:55 Const General: cooperative, healthy appearing, comfortable and no acute distress Orientation/consciousness: patient oriented x3 HENMT Head: Yes normocephalic Ears: hearing grossly normal bilaterally General nose exam: Normal external nose present Eyes General: appearance normal, both eyes and all related structures Conjunctivae: conjunctivae normal Neck Neck: Yes full ROM and Yes no lymphadenopathy Resp Effort & Inspection: normal respiratory effort Auscultation: clear to auscultation bilaterally, no crackles, no rales, no rhonchi and no wheezes Cardio Rate: regular rate Rhythm: regular rhythm Skin Other: Neurodermatitis rash on bilateral upper extremities Neuro General: patient oriented x3 Gait exam (Neuro): Normal gait present Extrem Other: Pain to palpation of lateral aspect of left elbow. Pulses, strength, sensation intact in bilateral upper extremities. General: Yes normal to inspection, Yes full ROM and No edema Psych Affect: normal affect Attitude: cooperative Insight: Good insight present (Psych) Judgement: Good judgement present (Psych) Assessment and Plan Assessment & Plan (1) Osteoporosis: Code(s): M81.0 - Age-related osteoporosis without current pathological fracture Plan: Patient is due for bone density scan after being diagnosed previously with osteoporosis. Order placed today. (2) Lateral epicondylitis: Code(s): M77.10 - Lateral epicondylitis, unspecified elbow Plan: Continue with rest, ice, compression, and elevation of the left upper extremity. Referral for physical therapy was placed by [facility] and she will continue following with them if injection is desired. Follow up as needed for this concern Plan This note was constructed using voice recognition software. While every effort has been made to ensure accuracy and civil celebrant, still areas may have been included sometimes these areas may affect the content or meeting of the given symptoms. Total time spent caring for the patient today was 30 minutes. This includes time spent before the visit reviewing the chart, time spent during the visit, and time spent after the visit and documentation. Orders: Orders XR DEXA axial skeleton Today M81.0 - Age-related osteoporosis without current pathological fracture, Z78.0 - Asymptomatic menopausal state Coding Level of Care Code Est Pt Level 3 (67941) Diagnoses Osteoporosis M81.0 Lateral epicondylitis M77.10 Additional Codes MEENU-7 Assessment Billing - MEENU-7 Assessment Tool: MEENU-7 Assessment 29802 ([id number])
[2024-01-02 14:49] VITALS: BP 132/68; PULSE 103; O2SAT 96
== END 2024-01-02 15:29 | disposition home or self-care (01) ==
PROVIDERS: PCP Internal Medicine
DX: M81.0 Age-related osteoporosis without current pathological fracture (principal); M77.10 Lateral epicondylitis, unspecified elbow
CPT/HCPCS: 99213

== ENCOUNTER 2024-02-10 10:39 | Outpatient (REF) | payer MEDICARE, MEDICAID, SELFPAY ==
--- NOTE | ~2024-02-10 | MM_ITS ---
EXAMINATION: BONE DENSITOMETRY CLINICAL INDICATION: Menopause. COMPARISON: Baseline BD dated 01/20/2021. TECHNIQUE: Using a [place] DXA System (software version: 13.1) manufactured by [employer], dual-energy x-ray absorptiometry was performed of the lumbar spine and left hip. The images are of good technical quality. Summary results are attached. FINDINGS: LEFT FEMUR, NECK: Current: BMD 0.687 g/cm2, Z-score -0.4, T-score -2.5, osteoporosis. Baseline: BMD 0.680 g/cm2. LEFT FEMUR, TOTAL: Current: BMD 0.672 g/cm2, Z-score -0.8, T-score -2.7, osteoporosis, 4.0% decrease from baseline (<5% change is not significant). Baseline: BMD 0.700 g/cm2. AP SPINE L1-L4 (excluding L2 and L3): The data of L1-L4 has been changed to exclude the L2 and L3 vertebral bodies, because degenerative sclerosis at these levels may cause overestimation of lumbar spine density. Current: BMD 0.933 g/cm2, Z-score 0.1, T-score -1.9, osteopenia, 0.9% decrease from baseline (<5% change is not significant). Baseline: BMD 0.941 g/cm2. IDENTIFIED RISK FACTORS: Menopause, osteoporosis, secondary osteoporosis (intestinal or bowel disease). HISTORY OF FRACTURE: None listed. MEDICATIONS: None listed. MM/XR DEXA axial skeleton IMPRESSION: 1. DIAGNOSIS: Osteoporosis based on the lowest T-score value of -2.7 in the total femur applying World Health Organization criteria. 2. 10-YEAR FRACTURE RISK PREDICTION, FRAX: According to the guidelines, FRAX calculation should only be performed on patients in the osteopenia bone density category. Therefore, FRAX was not performed on this patient. 3. Treatment Recommendations: NOF guidelines recommend consideration for treatment in postmenopausal women and men age 50 and older presenting with the following: -A hip or vertebral (clinical or morphometric) fracture. -T-score less than or equal to -2.5 at the femoral neck or spine after appropriate evaluation to exclude secondary causes. -Low bone mass at the hip or spine and a 10-year fracture probability by FRAX of greater than or equal to 3% for hip fracture or greater than or equal to 20% for major osteoporotic fracture based on the [place] adapted WHO algorithm. 4. Other Recommendations: All treatment decisions require clinical judgment and consideration of individual patient factors, including patient preferences, comorbidities, previous drug use, risk factors not captured in the FRAX model (e.g. frailty, falls, vitamin D deficiency, increased bone turnover, interval significant decline in bone density) and possible under or overestimation of fracture risk by FRAX. Additional medical evaluation for secondary cause of low bone mineral density may be appropriate. FUTURE SCAN RECOMMENDATION: People with diagnosed cases of osteoporosis or at high risk for fracture should have regular bone mineral density tests. For patients eligible for Medicare, routine testing is allowed once every 2 years. The testing frequency can be increased to one year for patients who have rapidly progressing disease, those who are receiving or discontinuing medical therapy to restore bone mass, or have additional risk factors. Electronically signed by: Minor Ortiz MD 02/20/2024 09:16 AM EDT
== END 2024-02-10 10:40 | disposition home or self-care (01) ==
LOC: HO.MAMMO 10:39
PROVIDERS: PCP Internal Medicine
DX: Z13.820 Encounter for screening for osteoporosis (principal); Z78.0 Asymptomatic menopausal state; M81.0 Age-related osteoporosis without current pathological fracture
CPT/HCPCS: 77080

== ENCOUNTER 2024-03-16 07:10 | Outpatient (REF) | payer MEDICARE, MEDICAID, SELFPAY ==
[2024-03-16 08:02] LABS: Basophils Absolute Auto 0.1 X10*3/uL (0.0-0.2); Eosinophils Absolute Auto 0.1 X10*3/uL (0.0-0.4); Eosinophils Percent Auto 1.6 % (0-4); Hematocrit 42.3 % (37.0-47.0); Hemoglobin 14.4 g/dl (12.0-16.0); Imm Gran Abs Auto 0.01 X10*3/uL (0.00-0.03); Imm Gran Pct Auto 0.2 % (0.0-0.4); Lymphocytes Absolute Auto 2.5 X10*3/uL (1.2-4.9); Lymphocytes Percent Auto 41.8 % (20-40); MANUAL DIFF FLAG NO; Mean Corpuscular Hemoglobin 30.4 pg (27.0-33.0); Mean Corpuscular Volume 89.2 fL (80.0-98.0); Mean Platelet Volume 10.1 fL (9.4-12.3); Monocytes Absolute Auto 0.5 X10*3/uL (0.1-1.2); Monocytes Percent Auto 7.9 % (2-11); Neutrophils Absolute Auto 2.9 x10*3/uL (2.0-8.3); Neutrophils Percent Auto 47.5 % (45-73); Platelet Count 317 X10*3/uL (160-400); Red Blood Count 4.74 X10*6/uL (4.20-5.50); Red Cell Distribution Width 12.7 % (11.0-16.0); White Blood Count 6.1 X10*3/uL (4.8-10.8)
[2024-03-16 08:09] LABS: Appearance Urine Clear; Color Urine Yellow; Glucose Urine UA Negative (Negative); Leukocyte Esterase Urine Negative (Negative); Nitrite Urine Negative (Negative); PH 5.5 (5.0-9.0); UMIC TRIGGER UACC YES; Urine Blood Trace (Negative); Urine Ketones Negative (Negative); Urine Protein Negative (Neg-Trace)
[2024-03-16 08:15] LABS: Bacteria Urine None Seen (None Seen); Hyaline Casts Urine 0-2 /LPF (0-2); Squamous Epithelial Cell Urine 0-2 /HPF (0-2); WBC Urine 0-5 /HPF (0-5)
[2024-03-16 08:43] LABS: Alanine Aminotransferase 21 U/L (0-31); Albumin Level 4.1 g/dL (3.5-5.0); Alkaline Phosphatase 59 U/L (39-117); Anion Gap 14 (12-20); Aspartate Amino Transferase 32 U/L (5-31); Bilirubin Total 0.5 mg/dL (0.0-1.0); Blood Urea Nitrogen 15 mg/dL (9-16); Calcium 9.6 mg/dL (8.4-10.2); Carbon Dioxide 26 mmol/L (22-29); Chloride 107 mmol/L (96-108); Cholesterol 214 mg/dL (<200); Estimated Glomerular Filt Rate > 60; Glucose Random 93 mg/dL (60-115); HDL Cholesterol 80 mg/dL (>40); LDL Cholesterol Calculated 120 mg/dL (<100); Sodium 143 mmol/L (135-145); Total Protein 7.6 g/dL (6.5-8.0); Triglycerides 73 mg/dL (<150)
[2024-03-16 09:02] LABS: Free T4 (Free Thyroxine) 0.95 ng/dL (0.71-1.85); Thyroid Stimulating Hormone 2.89 uIU/mL (0.32-4.0); Vitamin D 25-OH Total 22.5 ng/mL (>30)
[2024-03-16 09:28] LABS: Folate 14.2 ng/mL (> or = 4.0); Vitamin B12 486 pg/mL (200-900)
--- NOTE | 2024-03-16 12:59 | ECG_ITS ---
Test Reason : PALPITATIONS Blood Pressure : / mmHG Vent. Rate : 055 BPM Atrial Rate : 055 BPM P-R Int : 158 ms QRS Dur : 074 ms QT Int : 416 ms P-R-T Axes : 010 012 033 degrees QTc Int : 397 ms Sinus bradycardia Otherwise normal ECG When compared with ECG of 04-JUL-2015 08:05, No significant change was found Referred By: Shagufta Lee Electronically Signed By:LEANNA STAPLETON MD
== END 2024-03-16 07:11 | disposition home or self-care (01) ==
LOC: HO.LAB 07:10
PROVIDERS: Absent Provider Nurse Practitioner; PCP Internal Medicine; Visit Provider Internal Medicine
DX: K21.9 Gastro-esophageal reflux disease without esophagitis (principal); E78.00 Pure hypercholesterolemia, unspecified; R00.2 Palpitations
CPT/HCPCS: 36415; 80053; 80061; 81001; 82306; 82607; 82746; 84439; 84443; 85025; 93005

== ENCOUNTER 2024-03-16 10:54 | Outpatient (AMB) | payer MEDICARE, MEDICAID, SELFPAY ==
--- NOTE | 2024-03-16 11:13 | MHC.OFFVIS ---
Vital Signs 03/16/24 11:20 Height 5 ft BMI Reason not done Patient refused/unable BP 166/96 H Blood Pressure Location Lt brachial Position Sitting Pulse 50 Intake Visit Reasons: 6 month follow up Intake Note: Damari presents in the office as a 6 month follow up. CC: She states the other night she did not like her breathing and she states that she has not been doing good. She states that is felt like it felt like a reaction to something in her chest and her pulse was all over the place when she was laying down. She said it was almost like a spasm due to the IBS. She is not sure if this was something that was anxiety related or if she had anxiety after the fact. Lead Cytogenetic Technologist Required: No Allergies alcohol [ALCOHOL] Allergy (Unknown, Verified 04/20/24 10:46) ON SKIN - HIVES , SWELLING gluten [GLUTEN] Allergy (Unknown, Verified 04/20/24 10:46) HIVES latex [LATEX] Allergy (Unknown, Verified 04/20/24 10:46) HIVES,SWELLING mold Allergy (Unknown, Verified 04/20/24 10:46) HIVES yeast, dried [YEAST] Allergy (Unknown, Verified 04/20/24 10:46) HIVES cephalexin [From Keflex] Adverse Reaction (Intermediate, Verified 04/20/24 10:46) sleepy dairy Allergy (Mild, Uncoded 04/20/24 10:46) Hives smoked meat Allergy (Mild, Uncoded 04/20/24 10:46) Hives HPI HPI 6 month follow up: Details: Assessment & Plan (1) Irritable bowel syndrome with constipation: Code(s): K58.1 - Irritable bowel syndrome with constipation Category: Medical (2) GERD (gastroesophageal reflux disease): Code(s): K21.9 - Gastro-esophageal reflux disease without esophagitis Category: Medical Qualifiers: Esophagitis presence: without esophagitis Qualified Code(s): K21.9 - Gastro-esophageal reflux disease without esophagitis Plan She says the hot season drives her IBS because sweating makes me nervous and this is what drives her problems. She tries to eat a lot of high fiber cereals. She is currently moving her bowels several times a day - which she finds annoying but not unmanageable. She is also having a lot of spasms in the stomach area. This is especially bad at night. Otherwise she is doing okay. I will extend her a trial of bentyl 20mg. She continues on her creon and omeprazole. ROV 6 mos. Medications: New dicyclomine 20 mg PO QID 120 tabs 1RF 30 days TODAY'S VISIT VERY HIGH ANXIETY X 2 DAYS, having palpitations and chest discomfort, HTN up. Does not want to do colonoscopy had bad experience with last EGD and with her IBS more active with anxiety she does not want to prep. Will do cologuard. Also will get EKG. Reviewed bloodwork and looks ok. She does have dicyclomine to help when her anxiety drives her IBS. ROV 6 mos. [facility] Medical History Upper respiratory infection Adult general medical exam Irritable bowel syndrome with both constipation and diarrhea Urethritis Asthma Restrictive lung disease Cough Screening for diabetes mellitus Low back pain Acute sinusitis Irritable bowel syndrome with constipation Tubular adenoma of colon Hx of osteopenia Lumbar disc disease Bronchitis with flu GERD (gastroesophageal reflux disease) PTSD (post-traumatic stress disorder) Panic disorder History of chronic rhinitis Fibrocystic breast disease Osteoarthritis Hx of irritable bowel syndrome Neurodermatitis Surgical History History of colonoscopy Hx of esophagogastroduodenoscopy Hx of tonsillectomy Hx of cholecystectomy H/O colonoscopy with polypectomy Family History Father Alcoholic Arthritis Mother Schizophrenia Heart failure Brother Hep C w/ coma, chronic Drug addict Cancer Other Mental health disorder Substance use disorder Social History Household Members: Friend(s) and None Housing: Other Alcohol intake: current Alcohol intake frequency: holidays/special occasions only Alcohol type: wine Patient Tobacco Use Status: Never used Tobacco Tobacco use type: Cigarette e-Cigarette/Vaping Use: Never Used Second Hand Smoke Exposure: No service: No Current occupational status: retired Cognitive needs: No Hearing needs: No Vision needs: No Review of Systems Const Denies fatigue, Denies fever(s), Denies night sweats, Denies poor appetite and Denies weight loss ENT Reports Normal hearing present, Denies dysphagia, Denies odynophagia, Denies throat swelling and Denies tongue swelling Card Reports no additional complaints Resp Reports no additional complaints GI Details: Denies abdominal pain, Denies melena, Reports bloating, Denies hematochezia, Denies constipation, Denies GI cramping, Denies dysphagia, Denies excessive flatus, Denies early satiety, Reports heartburn, Denies diarrhea, Reports loose stools, Denies nausea, Denies odynophagia, Denies vomiting and Denies hematemesis Skin/Breast Denies pruritus, Denies lesions, Denies rash and Denies jaundice Neuro Reports Normal hearing present and Denies Abnormal speech present Psych Reports anxiety Endo Denies fatigue Aller/Immun Denies throat swelling and Denies tongue swelling Physical Exam Vital Signs: Last Vital Signs Pulse 50 03/16/24 11:20 BP 166/96 H 03/16/24 11:20 Const General: cooperative, no acute distress, well developed and well groomed Nutritional Appearance: average body habitus and well nourished Orientation/consciousness: oriented to person, oriented to place and oriented to time Limitations: No language barrier HEENT Head: Yes normocephalic and Yes atraumatic Eyes General: appearance normal, both eyes and all related structures Pupils: Equal, round and reactive pupils present Neck Neck: Yes normal visual inspection and Yes no lymphadenopathy Thyroid: Thyroid normal Resp Effort & Inspection: normal respiratory effort and able to speak in complete sentences Auscultation: clear to auscultation bilaterally Cardio Rate: regular rate Rhythm: regular rhythm Heart sounds: Normal, physiologic split S2 sound present Peripheral pulses: radial pulses present and posterior tibial pulses present GI Inspection: No distended and No Abdominal panniculus present Palpation (GI): Soft to palpation, nontender, no guarding, not rigid and No hepatosplenomegaly present Percussion: Yes normal to percussion Auscultation: normal bowel sounds Rectal Exam - Female: deferred Skin General skin exam: no rashes or lesions noted, turgor normal, skin not dry, no jaundice, No spider nevi and no striae Rashes: no rashes Nails: normal Neuro General: oriented to person, oriented to place and oriented to time Cranial nerves: Yes Equal, round and reactive pupils present and Yes Normal hearing present Speech: No Abnormal speech present Extrem General: Yes normal to inspection, No clubbing, No cyanosis and No edema Psych Appearance: grossly normal and well kempt Mental Status: mental status grossly normal Speech and movement: Normal speech and movement present Affect: normal affect Attitude: cooperative Thought process: Normal thought process present and not confabulating Thought content: Normal thought content present Insight: Limited insight present (Psych) Judgement: Limited judgement present (Psych) Results Reviewed Results Reviewed: Laboratory Tests 03/16/24 07:34 WBC 6.1 Hgb 14.4 Hct 42.3 Plt Count 317 Estimated GFR > 60 Total Bilirubin 0.5 AST 32 H ALT 21 Alkaline Phosphatase 59 TSH 2.89 Free T4 0.95 Assessment & Plan Assessment & Plan (1) Irritable bowel syndrome with constipation: Code(s): K58.1 - Irritable bowel syndrome with constipation Category: Medical (2) GERD (gastroesophageal reflux disease): Code(s): K21.9 - Gastro-esophageal reflux disease without esophagitis Category: Medical Qualifiers: Esophagitis presence: without esophagitis Qualified Code(s): K21.9 - Gastro-esophageal reflux disease without esophagitis (3) Tubular adenoma of colon: Comment: Last scope 2019 repeat in 5 years or 2024 aeb Code(s): D12.6 - Benign neoplasm of colon, unspecified Category: Medical (4) Palpitations: Code(s): R00.2 - Palpitations Category: Medical Plan VERY HIGH ANXIETY X 2 DAYS, having palpitations and chest discomfort, HTN up. Does not want to do colonoscopy had bad experience with last EGD and with her IBS more active with anxiety she does not want to prep. Will do cologuard. Also will get EKG. Reviewed bloodwork and looks ok. However, the mildly elevated AST may point to self treating her anxiety with alcohol. She does have dicyclomine to help when her anxiety drives her IBS. She continues on her omeprazole once a day and her simethicone as well. ROV 6 mos. Orders: Orders ECG 12 lead EKG 03/16/24 R00.2 - Palpitations Medications: Refilled dicyclomine 20 mg PO QID 120 tabs 3RF 30 days K58.1 - Irritable bowel syndrome with constipation omeprazole 20 mg PO DAILY 30 caps 6RF [id number] 6,000-19,000 -30,000 unit (Creon) do not exceed 10,000 unit/kg lipase per 24 hrs 1 cap PO .TIDAC 90 caps 6RF K58.2 - Mixed irritable bowel syndrome Coding Level of Care Code Est Pt Level 3 (87760) Diagnoses Irritable bowel syndrome with constipation K58.1 Gastroesophageal reflux disease without esophagitis K21.9 Esophagitis presence: without esophagitis Tubular adenoma of colon D12.6 Palpitations R00.2
[2024-03-16 11:20] VITALS: BP 166/96; PULSE 50
== END 2024-03-16 13:21 | disposition home or self-care (01) ==
PROVIDERS: PCP Internal Medicine; Visit Provider Nurse Practitioner
DX: K58.1 Irritable bowel syndrome with constipation (principal); K21.9 Gastro-esophageal reflux disease without esophagitis; D12.6 Benign neoplasm of colon, unspecified; R00.2 Palpitations
CPT/HCPCS: 99213

== ENCOUNTER → 2024-03-16 12:59 | Outpatient (BNV) | payer MEDICARE, MEDICAID, SELFPAY | PROVIDERS: Absent Provider Nurse Practitioner; PCP Internal Medicine; Visit Provider Internal Medicine Cardiovascular Disease | DX: R00.2 Palpitations (principal) | CPT/HCPCS: 93010 ==

== ENCOUNTER 2024-03-22 11:31 | Outpatient (AMB) | payer MEDICARE, MEDICAID, SELFPAY ==
[2024-03-22 11:36] VITALS: BP 152/86; PULSE 46; O2SAT 97
--- NOTE | 2024-03-22 11:36 | A.OFFPC_ITS ---
Vital Signs 03/22/24 11:36 Height 5 ft BMI Reason not done Patient refused/unable BP 152/86 H Blood Pressure Location Lt brachial Position Sitting Pulse 46 L Pulse Source Pulse Oximeter Pulse Oximetry (%) 97 Oxygen Delivery Method Room Air Intake Visit Reasons: Follow Up Intake Note: pt states she is taking no medication at the moment because it is raising her blood pressure, she'd like to discuss this with PCP Tilt Tray Driver Required: No Accompanied by: Self / Same As Patient Allergies alcohol [ALCOHOL] Allergy (Unknown, Verified 03/22/24 11:37) ON SKIN - HIVES , SWELLING gluten [GLUTEN] Allergy (Unknown, Verified 03/22/24 11:37) HIVES latex [LATEX] Allergy (Unknown, Verified 03/22/24 11:37) HIVES,SWELLING mold Allergy (Unknown, Verified 03/22/24 11:37) HIVES yeast, dried [YEAST] Allergy (Unknown, Verified 03/22/24 11:37) HIVES cephalexin [From Keflex] Adverse Reaction (Intermediate, Unverified 03/22/24 12:13) sleepy dairy Allergy (Mild, Uncoded 03/22/24 11:37) Hives smoked meat Allergy (Mild, Uncoded 03/22/24 11:37) Hives Medication List - Last Reconciled 03/22/24 by Reynaldo Strong MD albuterol sulfate 90 mcg/actuation 2 puffs inhalation Q4-6H PRN 30 days cholecalciferol (vitamin D3) 25 mcg PO DAILY dicyclomine 20 mg PO QID 30 days [id number]-semgisr 6,000-19,000 -30,000 unit (Creon) 1 cap PO .TIDAC omeprazole 20 mg PO DAILY simethicone (Gas Relief (simethicone)) 180 mg PO BID PRN Tobacco use date assessed: 01/02/24 Fall risk assessment: No Falls in past year Last assessed Fall Risk: 03/22/24 Dental Screening Dental Screen Date: 01/02/24 HPI Follow Up HPI Details 73-year-old female with a history of NEIDA D bipolar disorder osteoporosis hypercholesterolemia insomnia irritable bowel syndrome asthma coming in for follow-up. December 2023 last seen. Mammogram is up-to-date colonoscopy up-to-date bone density 01/26/2021. Patient was seen by the [facility] March 16 diagnosis of irritable bowel syndrome was prescribed dicyclomine omeprazole and Creon.flu shot declined [facility] Medical History (Updated 03/22/24 @ 12:22 by Reynaldo Strong MD) Upper respiratory infection Adult general medical exam Irritable bowel syndrome with both constipation and diarrhea Urethritis Asthma Restrictive lung disease Cough Screening for diabetes mellitus Low back pain Acute sinusitis Irritable bowel syndrome with constipation Tubular adenoma of colon Hx of osteopenia Lumbar disc disease Bronchitis with flu GERD (gastroesophageal reflux disease) PTSD (post-traumatic stress disorder) Panic disorder History of chronic rhinitis Fibrocystic breast disease Osteoarthritis Hx of irritable bowel syndrome Neurodermatitis Surgical History History of colonoscopy Hx of esophagogastroduodenoscopy Hx of tonsillectomy Hx of cholecystectomy H/O colonoscopy with polypectomy Family History Father Alcoholic Arthritis Mother Schizophrenia Heart failure Brother Hep C w/ coma, chronic Drug addict Cancer Other Mental health disorder Substance use disorder Social History Household Members: Friend(s) and None Housing: Other Alcohol intake: current Alcohol intake frequency: holidays/special occasions only Alcohol type: wine Patient Tobacco Use Status: Never used Tobacco Tobacco use type: Cigarette e-Cigarette/Vaping Use: Never Used Second Hand Smoke Exposure: No service: No Current occupational status: retired Cognitive needs: No Hearing needs: No Vision needs: No Questionnaire Thrive Questionnaire Date Thrive assessed: 01/02/24 MEENU-7 AMB Questionnaire MEENU-7 Date MEENU - 7 assessed: 01/02/24 Source: Developed by Drs. Diogenes Emanuel, Mercy Khalil, Raman Madsen and colleagues, with an educational lisa from [employer]. Physical exam (Primary Care) Vital Signs: Last Vital Signs Pulse 46 L 03/22/24 11:36 BP 152/86 H 03/22/24 11:36 Pulse Ox 97 03/22/24 11:36 Oxygen Delivery Method Room Air 03/22/24 11:36 Tobacco/Smoking Status: Tobacco use Status Tobacco use date assessed 01/02/24 03/22/24 11:38 Patient Tobacco Use Status Never used Tobacco 03/22/24 11:38 Tobacco use type Cigarette 03/22/24 11:38 e-Cigarette/Vaping Use Never Used 03/22/24 11:38 Thrive Assessment: Date of Thrive Assessment Date Thrive assessed 01/02/24 03/22/24 11:38 Const General: alert; No acute distress Eyes Conjunctivae: conjunctivae normal Resp Auscultation: clear to auscultation bilaterally Cardio Rate: regular rate Rhythm: regular rhythm GI Inspection: Yes normal to inspection Extrem General: Yes normal to inspection and No edema Coding Level of Care Code Est Pt Level 4 (73803) Diagnoses Mild intermittent asthma without complication J45.20 Asthma severity: mild Asthma persistence: intermittent Asthma complication type: uncomplicated Age related osteoporosis, unspecified pathological fracture presence M81.0 Osteoporosis type: age-related Presence of current pathological fracture: unspecified Bipolar 1 disorder F31.9 Gastroesophageal reflux disease without esophagitis K21.9 Esophagitis presence: without esophagitis Blood pressure elevated without history of HTN R03.0 Hematuria, unspecified type R31.9 Hematuria type: unspecified type Assessment & Plan Assessment & Plan (1) Asthma: Comment: EPISODES OF FEELING LIKE BRONCHOSPASM, AND SOME MUCUS IN THE UPPER AIRWAYS, MOST LIKELY DUE TO MILD INTERMITTENT BRONCHOSPASMS . SHE IS EXPLAINED ABOUT THIS AND REASSURED. MAY USE 1 OR 2 PUFFS OF PROAIR ONLY P.R.N. WHEN SHE HAS THIS KIND OF EPISODE. Code(s): J45.909 - Unspecified asthma, uncomplicated Category: Medical Qualifiers: Asthma severity: mild Asthma persistence: intermittent Asthma complication type: uncomplicated Qualified Code(s): J45.20 - Mild intermittent asthma, uncomplicated Plan: Continue with albuterol as needed (2) Osteoporosis: Comment: February 2024 Code(s): M81.0 - Age-related osteoporosis without current pathological fracture Category: Medical Qualifiers: Osteoporosis type: age-related Presence of current pathological fracture: unspecified Qualified Code(s): M81.0 - Age-related osteoporosis without current pathological fracture Plan: Discussed about treatment as well as calcium and vitamin-D decline med for bone (3) Bipolar 1 disorder: Comment: [facility] counselling once a week (12/2020) Code(s): F31.9 - Bipolar disorder, unspecified Category: Medical Plan: Continue with counseling and therapy (4) GERD (gastroesophageal reflux disease): Code(s): K21.9 - Gastro-esophageal reflux disease without esophagitis Category: Medical Qualifiers: Esophagitis presence: without esophagitis Qualified Code(s): K21.9 - Gastro-esophageal reflux disease without esophagitis Plan: Avoid the foods that causes that usually spicy foods, tomato products, juices, coffee, soda and foods that your sensitive to. After eating do not lie down, allow 3-4 hours before in lie down. And keep the head of bed above 30 degrees to avoid the acid from going up. (5) Blood pressure elevated without history of HTN: Code(s): R03.0 - Elevated blood-pressure reading, without diagnosis of hypertension Category: Medical Plan: Discussed concern on elevated BP , will need to monitor at home 3 x a week and record (6) Hematuria: Code(s): R31.9 - Hematuria, unspecified Category: Medical Qualifiers: Hematuria type: unspecified type Qualified Code(s): R31.9 - Hematuria, unspecified Plan: Advised to get a KUB as well as a repeat urinalysis Orders: Orders XR KUB Today R31.9 - Hematuria, unspecified UA CC w/rflx Micro + Cult Today R30.0 - Dysuria, R31.9 - Hematuria, unspecified
== END 2024-03-22 12:19 | disposition home or self-care (01) ==
PROVIDERS: PCP Internal Medicine; Visit Provider Internal Medicine
DX: J45.20 Mild intermittent asthma, uncomplicated (principal); M81.0 Age-related osteoporosis without current pathological fracture; F31.9 Bipolar disorder, unspecified; K21.9 Gastro-esophageal reflux disease without esophagitis; R03.0 Elevated blood-pressure reading, without diagnosis of hypertension; R31.9 Hematuria, unspecified

== ENCOUNTER → 2024-03-22 11:31 | Outpatient (BNVA) | payer MEDICARE, MEDICAID, SELFPAY | PROVIDERS: PCP Internal Medicine; Visit Provider Internal Medicine | DX: J45.20 Mild intermittent asthma, uncomplicated (principal); M81.0 Age-related osteoporosis without current pathological fracture; F31.9 Bipolar disorder, unspecified; K21.9 Gastro-esophageal reflux disease without esophagitis; R03.0 Elevated blood-pressure reading, without diagnosis of hypertension; R31.9 Hematuria, unspecified | CPT/HCPCS: 99212 ==

== ENCOUNTER 2024-03-23 10:05 | Outpatient (REF) | payer MEDICARE, MEDICAID, SELFPAY ==
[2024-03-23 13:17] LABS: Appearance Urine Clear; Color Urine Yellow; Glucose Urine UA Negative (Negative); Leukocyte Esterase Urine Trace (Negative); Nitrite Urine Negative (Negative); PH 5.5 (5.0-9.0); Specific Gravity - Urine 1.015 (1.005-1.025); UMIC TRIGGER UACC YES; Urine Blood Negative (Negative); Urine Ketones Trace mg/dL (Negative); Urine Protein Negative (Neg-Trace)
[2024-03-23 13:21] LABS: Bacteria Urine None Seen (None Seen); Hyaline Casts Urine 0-2 /LPF (0-2); RBC Urine 0-2 /HPF (0-2); Squamous Epithelial Cell Urine 0-2 /HPF (0-2); WBC Urine 0-5 /HPF (0-5)
== END 2024-03-23 10:06 | disposition home or self-care (01) ==
LOC: HO.HMGCX 10:05
PROVIDERS: PCP Internal Medicine; Visit Provider Internal Medicine
DX: R30.0 Dysuria (principal); R31.9 Hematuria, unspecified
CPT/HCPCS: 74018; 81001

== ENCOUNTER 2024-04-20 10:41 | Outpatient (AMB) | payer MEDICARE, MEDICAID, SELFPAY ==
--- NOTE | 2024-04-20 10:44 | AM.OFFVISMDC ---
Intake Vital Signs 04/20/24 10:46 Height 5 ft BMI Reason not done Patient refused/unable BP 124/76 Blood Pressure Location Lt brachial Position Sitting Pulse 48 L Pulse Source Pulse Oximeter Pulse Oximetry (%) 98 Oxygen Delivery Method Room Air Intake Visit Reasons: MARGOTH [id number] Intake Note: Patient is here for an Annual Wellness Visit. Pt decline flu shot today. Tool Sharpener Required: No Socially Responsible Investment Adviser: Socially Responsible Investment Adviser offered & declined Accompanied by: Self / Same As Patient Allergies alcohol [ALCOHOL] Allergy (Unknown, Verified 04/20/24 10:46) ON SKIN - HIVES , SWELLING gluten [GLUTEN] Allergy (Unknown, Verified 04/20/24 10:46) HIVES latex [LATEX] Allergy (Unknown, Verified 04/20/24 10:46) HIVES,SWELLING mold Allergy (Unknown, Verified 04/20/24 10:46) HIVES yeast, dried [YEAST] Allergy (Unknown, Verified 04/20/24 10:46) HIVES cephalexin [From Keflex] Adverse Reaction (Intermediate, Verified 04/20/24 10:46) sleepy dairy Allergy (Mild, Uncoded 04/20/24 10:46) Hives smoked meat Allergy (Mild, Uncoded 04/20/24 10:46) Hives Medication List - Last Reconciled 04/20/24 by Marylu Garcia PA-C albuterol sulfate 90 mcg/actuation 2 puffs inhalation Q4-6H PRN 30 days cholecalciferol (vitamin D3) 25 mcg PO DAILY dicyclomine 20 mg PO QID 30 days [id number] 6,000-19,000 -30,000 unit (Creon) 1 cap PO .TIDAC omeprazole 20 mg PO DAILY simethicone (Gas Relief (simethicone)) 180 mg PO BID PRN HPI SWV [id number] HPI Details 73-year-old female with past medical history of GERD, bipolar disorder, osteoporosis, hypercholesterolemia, insomnia, irritable bowel syndrome, asthma last seen by Dr. Strong March 2024 coming in for annual wellness visit.? At her last visit she was found to have hematuria advised to repeat urinalysis and ordered x-ray KUB. Patient states she has no acute concerns today and is feeling generally well. She does notice her blood pressure will go up if she takes Tylenol or Ambien and we will have a headache with elevated blood pressure but feels her blood pressure is normal throughout the day and denies any headaches. She has mentioned increased stress regarding her living situation but follows with a counselor which she finds helpful. [facility] Medical History Upper respiratory infection Adult general medical exam Irritable bowel syndrome with both constipation and diarrhea Urethritis Asthma Restrictive lung disease Cough Screening for diabetes mellitus Low back pain Acute sinusitis Irritable bowel syndrome with constipation Tubular adenoma of colon Hx of osteopenia Lumbar disc disease Bronchitis with flu GERD (gastroesophageal reflux disease) PTSD (post-traumatic stress disorder) Panic disorder History of chronic rhinitis Fibrocystic breast disease Osteoarthritis Hx of irritable bowel syndrome Neurodermatitis Surgical History History of colonoscopy Hx of esophagogastroduodenoscopy Hx of tonsillectomy Hx of cholecystectomy H/O colonoscopy with polypectomy Family History Father Alcoholic Arthritis Mother Schizophrenia Heart failure Brother Hep C w/ coma, chronic Drug addict Cancer Other Mental health disorder Substance use disorder Social History Household Members: Friend(s) and None Housing: Other Alcohol intake: current Alcohol intake frequency: holidays/special occasions only Alcohol type: wine Patient Tobacco Use Status: Never used Tobacco Tobacco use type: Cigarette e-Cigarette/Vaping Use: Never Used Second Hand Smoke Exposure: No service: No Current occupational status: retired Cognitive needs: No Hearing needs: No Vision needs: No Questionnaire Medicare Wellness Checkup [age] What gender do you identify with?: female During the past 4 weeks, how much have you been bothered by emotional problems such as feeling anxious, depressed, irritable, sad or downhearted, and blue?: quite a bit During the past 4 weeks, has your physical & emotional health limited your social activities with family, friends, neighbors, or groups?: not at all During the past 4 weeks, how much bodily pain have you generally had?: no pain During the past 4 weeks, was someone available to help you if you needed & wanted help?: yes, quite a bit During the past 4 weeks, what was the hardest physical activity you could do for at least 2 minutes?: heavy Can you get to places out of walking distance without help? (For eg., can you travel alone on buses, taxis or drive your car?): Yes Can you go shopping for groceries or clothes without someone's help?: Yes Can you prepare your own meals?: Yes Can you do your housework without help?: Yes Because of any health problems, do you need the help of another person with your personal care needs such as eating, bathing, dressing or getting around the house?: No Can you handle your own money without help?: Yes During the past 4 weeks, how would you rate your health in general?: very good During the past 4 weeks how have things been going for you?: pretty well Are you having difficulties driving your car?: no Do you always fasten your seat belt when you are in a car?: yes, usually During past 4 weeks, have you been bothered by the following: never: Falling or dizzy when standing up, Sexual problems?, Trouble eating well?, Teeth or denture problems?, Problems using the telephone? and Tiredness or fatigue? Have you fallen 2 or more times in the past year?: No Are you afraid of falling?: No Are you a smoker?: no During the past 4 weeks, how many drinks of wine, beer, or other alcoholic beverages did you have?: 1 drink or less per week Do you exercise for about 20 minutes 3 or more times a week?: no, I usually do not exercise this much Have you been given information to help with the following?: yes: Keeping track of your medications? and no: Hazards in your house that might hurt you? How often do you have trouble taking medicines the way you have been told to take them?: sometimes I take medicine as prescribed How confident are you that you can control & manage most of your health problems?: very confident What is your race?: White Thrive Questionnaire Date Thrive assessed: 01/02/24 MEENU-7 AMB Questionnaire MEENU-7 Date MEENU - 7 assessed: 01/02/24 Source: Developed by Drs. Diogenes Emanuel, Mercy Khalil, Raman Madsen and colleagues, with an educational lisa from [employer]. Review of Systems Const Denies body aches, Denies fatigue, Denies fever(s), Denies frequent falls, Denies headache(s) and Denies weakness Eyes Reports no additional complaints and Denies change in vision ENT Denies dysphagia, Denies dizziness, Denies facial pain, Denies headache(s), Denies nasal congestion and Denies odynophagia Card Denies chest pain, Denies syncope, Denies irregular heart rhythm, Denies leg edema, Denies lightheadedness and Denies dyspnea Resp Denies cough and Denies dyspnea GI Reports abdominal pain (Occasional), Denies constipation, Denies dysphagia, Denies dyspepsia, Reports diarrhea, Denies nausea, Denies odynophagia and Denies vomiting Denies urinary frequency, Denies dysuria, Denies urinary hesitancy and Denies urinary urgency Musc Denies back pain and Denies myalgias Skin/Breast Reports system reviewed and no additional complaints, except as documented Neuro Denies dizziness, Denies syncope, Denies frequent falls, Denies headache(s) and Denies weakness Psych Reports no additional complaints Endo Denies fatigue Physical Exam Vital Signs: Last Vital Signs Pulse 48 L 04/20/24 10:46 BP 124/76 04/20/24 10:46 Pulse Ox 98 04/20/24 10:46 Oxygen Delivery Method Room Air 04/20/24 10:46 Const General: cooperative, healthy appearing, comfortable and no acute distress Orientation/consciousness: patient oriented x3 HEENT Head: Yes normocephalic Ears: hearing grossly normal bilaterally, external ears normal, TM's normal bilaterally and EAC's normal General nose exam: Normal external nose present Face and sinus: Yes normal facial exam and Yes sinuses nontender Mouth: Normal oral and palatal mucosa present and tongue normal Throat: Yes posterior oropharynx normal Eyes General: appearance normal, both eyes and all related structures Conjunctivae: conjunctivae normal Pupils: Equal, round and reactive pupils present EOM: EOMs intact bilaterally and No Nystagmus present Neck Neck: Yes normal visual inspection, Yes full ROM and Yes no lymphadenopathy Chest Chest palpation & inspection: normal inspection of the chest Resp Effort & Inspection: normal respiratory effort Auscultation: clear to auscultation bilaterally, no crackles, no rales, no rhonchi, no wheezes and breath sounds present Cardio Rate: regular rate Rhythm: regular rhythm Peripheral pulses: radial pulses present and dorsalis pedis present GI Inspection: Yes normal to inspection and No Abdominal wall edema Palpation (GI): Soft to palpation, not firm and nontender Auscultation: normal bowel sounds Rectal Exam - Female: deferred General: Yes no CVA tenderness Back/Spine/Pelvis Back: no CVA tenderness Skin General skin exam: no rashes or lesions noted Neuro General: patient oriented x3 Cranial nerves: Yes Equal, round and reactive pupils present, Yes Midline tongue present, Yes Ability to bilaterally elevate shoulders present and No Nystagmus present Gait exam (Neuro): Normal gait present Extrem General: Yes normal to inspection, Yes full ROM, No no pedal edema and No edema Psych Speech and movement: Normal speech and movement present Affect: normal affect Insight: Good insight present (Psych) Judgement: Good judgement present (Psych) Assessment & Plan Assessment & Plan (1) Blood pressure elevated without history of HTN: Code(s): R03.0 - Elevated blood-pressure reading, without diagnosis of hypertension Plan: Avoid salt intake and encourage healthy diet and regular exercise. Blood pressure at goal today 124/76 (2) Asthma: Comment: EPISODES OF FEELING LIKE BRONCHOSPASM, AND SOME MUCUS IN THE UPPER AIRWAYS, MOST LIKELY DUE TO MILD INTERMITTENT BRONCHOSPASMS . SHE IS EXPLAINED ABOUT THIS AND REASSURED. MAY USE 1 OR 2 PUFFS OF PROAIR ONLY P.R.N. WHEN SHE HAS THIS KIND OF EPISODE. Code(s): J45.909 - Unspecified asthma, uncomplicated Qualifiers: Asthma complication type: uncomplicated Asthma persistence: intermittent Asthma severity: mild Qualified Code(s): J45.20 - Mild intermittent asthma, uncomplicated Plan: Continue on albuterol as needed. Asthma currently controlled on present medications.Avoid triggers such as allergies. States she rarely uses her albuterol inhaler (3) Restrictive lung disease: Comment: SHE HAS A VERY MILD DEGREE OF RESTRICTIVE LUNG DISEASE, MOST LIKELY POST COVID INFECTION. PATIENT EXPLAINED ABOUT THIS FINDING, NO SPECIFIC TREATMENT. NEEDED FOR THIS SHE SHOULD TRY TO DO DEEP BREATHING EXERCISES ON A DAILY BASIS Code(s): J98.4 - Other disorders of lung Plan: Previously being followed by pulmonology has not seen er tech in over 1 year. Continue on current inhaler (4) Osteoporosis: Comment: February 2024 Code(s): M81.0 - Age-related osteoporosis without current pathological fracture Qualifiers: Osteoporosis type: age-related Presence of current pathological fracture: unspecified Qualified Code(s): M81.0 - Age-related osteoporosis without current pathological fracture Plan: New diagnosis of osteoporosis from bone density February 2024. Discussed options in the appointment today and declines at this time and will continue to monitor. bone density has been stable. (5) Vitamin D deficiency: Code(s): E55.9 - Vitamin D deficiency, unspecified Plan: We will continue to monitor with blood work currently on supplementation (6) Hypercholesterolemia: Code(s): E78.00 - Pure hypercholesterolemia, unspecified Plan: Avoid foods that are high in cholesterol such as red meat, fried foods, eggs and baked goods. Triglyceride goal of less than 150 and LDL goal of less than 130. Not currently on medical management (7) Bipolar 1 disorder: Comment: [facility] counselling once a week (12/2020) Code(s): F31.9 - Bipolar disorder, unspecified Plan: Continue to follow with counseling not currently on medical management. (8) Eczema: Code(s): L30.9 - Dermatitis, unspecified Plan: Continue to use topical emollients as needed for eczema flares. (9) GERD (gastroesophageal reflux disease): Code(s): K21.9 - Gastro-esophageal reflux disease without esophagitis Qualifiers: Esophagitis presence: without esophagitis Qualified Code(s): K21.9 - Gastro-esophageal reflux disease without esophagitis Plan: Avoid trigger foods such as citrus, tomato products, soda, caffeine, spicy foods and other foods that may be irritating to your stomach. Avoid laying flat 3-4 hours after eating and elevate the head of the bed 30 degrees to prevent acid from moving into the esophagus. Continue on omeprazole (10) Annual wellness visit: Code(s): Z00.00 - Encounter for general adult medical examination without abnormal findings Plan: Patient up-to-date on all recommended routine screenings and vaccinations for her age. Continue to work on healthy diet and regular exercise. Blood work up-to-date 03/2024. [place] of care was reviewed with patient patient was provided with a written screening schedule. Healthcare proxy/ MOLST forms were reviewed with patient. Will have cologuard test with GI specialist. Plan This note was constructed using voice recognition software. While every effort has been made to ensure accuracy and juvenile justice officer, still areas may have been included sometimes these areas may affect the content or meeting of the given symptoms. Total time spent caring for the patient today was 30 minutes. This includes time spent before the visit reviewing the chart, time spent during the visit, and time spent after the visit and documentation. Coding Level of Care Code Medicare Subsequent (G0439) Diagnoses Blood pressure elevated without history of HTN R03.0 Mild intermittent asthma without complication J45.20 Asthma complication type: uncomplicated Asthma persistence: intermittent Asthma severity: mild Restrictive lung disease J98.4 Age related osteoporosis, unspecified pathological fracture presence M81.0 Osteoporosis type: age-related Presence of current pathological fracture: unspecified Vitamin D deficiency E55.9 Hypercholesterolemia E78.00 Bipolar 1 disorder F31.9 Eczema L30.9 Gastroesophageal reflux disease without esophagitis K21.9 Esophagitis presence: without esophagitis Annual wellness visit Z00.00
[2024-04-20 10:46] VITALS: BP 124/76; PULSE 48; O2SAT 98
--- OUTSIDE RECORDS SUMMARY | 2024-04-20 10:49 | XMS_ITS | Continuity of Care Document ---
Author Organization [place] - [facility], [facility] Address [address] [place] [address] Care Team Providers Care Lead Systems Engineer Name Role Phone ANGEL GREEN Primary Care Provider Assessment Encounter Date Assessment Date Assessment LastModified by Organization Details LastModified Time 02/07/2024 02/07/2024 73 year old female presents for ear cleaning. She has no cerumen on exam. TMs are intact and middle ear spaces are well aerated. We discussed repeating her audiogram today but the patient would prefer to do this at the next visit. I will see her back in 6 months for ear cleaning if necessary and for repeat audiometric testing. [email or web address] Not available 02/07/2024 10:45:24 Plan of Treatment Reminders Order Date Submit Date Provider Last Modified By Organization Details Last Modified Time Details Appointments Establish ed 15 2024 10:30A M Hearing Test Not available Not available Not available Establish ed 15 2024 11:15A M AKASH BAILEY PA-C Not available Not available Not available Lab None recorded. Referral None recorded. Procedures None recorded. Surgeries None recorded. Imaging None recorded. Medication Orders None recorded. Patient TargetsNo targets recorded. Patient InstructionsNo instructions recorded. Reason for Referral None Reported. Problems Name Problem SNOMED Code Status Onset Date Resolution Date Notes Provider Name and Address Organization Details Recorded Time Sensorine ural hearing loss of bilateral ears 988587591 Active 2015 Sensorine ural hearing loss, bilateral ; Note: Date Diagnosed : 05/23/2015 11:11 AM (H90.3) Not Available [facility] 03:00:05 Bilateral tinnitus 26928756544 02 Active 2022 Tinnitus, bilateral ; Note: Date Diagnosed : 07/22/2022 5:07 PM (H93.13) Not Available [facility] 4 03:00:07 Headache 27702453 Active 2015 Headache; Note: Date Diagnosed : 07/21/2015 1:50 PM (R51) Not Available [facility] 4 03:00:06 Disorder of left Eustachia n tube 50564019919 84880 Active 2021 Other specified disorders of Eustachia n tube, left ear; Note: Date Diagnosed : 05/14/2021 11:36 AM (H69.82) Not Available [facility] 4 03:00:08 Impacted cerumen in right ear 84845157035 78257 Active 2016 Impacted cerumen, right ear; Note: Date Diagnosed : 10/12/2016 12:13 PM (H61.21) Note: Date Diagnosed : 10/12/2016 12:13 PM (H61.21) Not Available [facility] 4 01:13:23 Allergic rhinitis 99566835 Active 2021 Other allergic rhinitis; Note: Date Diagnosed : 05/14/2021 11:31 AM (J30.89) Not Available [facility] 4 03:00:05 Temporoma ndibular joint disorder 97171328 Active 2015 Other specified disorders of temporoma ndibular joint; Note: Date Diagnosed : 08/14/2015 12:10 PM (M26.69) Not Available [facility] 4 03:00:08 Examinati on of ear Active 2022 Encounter for examinati on of ears and hearing without abnormal findings; Note: Date Diagnosed : 01/25/2023 11:56 AM (Z01.10) Not Available [facility] 4 03:00:08 Posterior rhinorrhe a 51526170 Active 2017 Postnasal drip; Note: Date Diagnosed : 08/02/2017 11:16 AM (R09.82) Not Available [facility] 4 03:00:06 Impacted cerumen of bilateral ears 77110257974 83570 Active 2015 Impacted cerumen, bilateral ; Note: Date Diagnosed : 01/29/2016 12:19 PM (H61.23) Not Available [facility] 4 03:00:07 Chronic disease of tonsils AND/OR adenoids 60293787 Active 2017 Tonsillar tag; Location: right Not e: Date Diagnosed : 08/02/2017 11:16 AM (J35.8) Not Available [facility] 4 03:00:05 Impacted cerumen 15289417 Active 2014 Impacted cerumen; Note: Date Diagnosed : 07/17/2014 2:40 PM (380.4) Not Available [facility] 4 03:00:07 Ulcerativ e rhinitis 34207065 Active 2023 JESUS MCELROY MD [address] [place] [address],[place] [address], [place], [address] , [place] - [facility] 4 09:52:39 Nasal mucosa dry 61521383 Active 2023 JESUS MCELROY MD [address] [place] [address],[place] [address], [place], [address] , [facility] 4 09:53:39 Problem Notes None recorded. Medical Equipment None Reported. Allergies No known drug allergies Medications Name Sig Start Date Stop Date Status Note LastModified by Organization Details LastModified Time tizanidin e 4 mg tablet 10/21 completed Medicati on ID: [id number] D uration Value: 30 Reason: () Brand Name: tizanidi ne Send Method: E-Prescr ibed Sub s Allowed: subs OK Speci al Instruct ion: take 1 tablet by mouth three times a day Medi cationGe nericNam e: tizanidi ne Not Available Not Available Not Available famotidin e 40 mg tablet 04/13 completed Medicati on ID: [id number] D uration Value: 30 Brand Name: famotidi ne Send Method: E-Prescr ibed Sub s Allowed: subs OK Medic ationGen ericName : famotidi ne Not Available Not Available Not Available prednisol one acetate 1 % eye drops,yen pension SHAKE LIQUID AND INSTILL 1 DROP IN BOTH EYES FOUR TIMES DAILY FOR 2 WEEKS THEN STOP 04/13 completed Not Available Not Available Not Available dicyclomi ne 20 mg tablet TAKE 1 TABLET BY MOUTH FOUR TIMES DAILY 04/13 completed Not Available Not Available Not Available cephalexi n 500 mg capsule TAKE 1 CAPSULE BY MOUTH THREE TIMES DAILY 04/13 completed Not Available Not Available Not Available erythromy moriah 5 mg/gram (0.5 %) eye ointment APPLY 1 THIN LAYER IN RIGHT EYE DAILY FOR 7 DAYS 02/06 completed Not Available Not Available Not Available tacrolimu s 0.1 % topical ointment 04/13 completed Not Available Not Available Not Available betametha sone dipropion ate 0.05 % topical cream active Not Available Not Available Not Available omeprazol e 20 mg capsule,d elayed release TAKE 1 CAPSULE BY MOUTH DAILY 04/13 completed Not Available Not Available Not Available hydrocort isone 2.5 % topical cream APPLY TO FACE TWICE DAILY NEEDED FOR FLARES. DECREASE SYMPTOMS IMPROVE 04/13 completed Not Available Not Available Not Available hydroxyzi ne HCl 25 mg tablet 10/21 completed Medicati on ID: [id number] D uration Value: 30 Reason: () Brand Name: hydroxyz ine HCl Send Method: E-Prescr ibed Sub s Allowed: subs OK Speci al Instruct ion: TAKE 1 TO 2 TABLETS BY MOUTH UP TO FOUR TIMES A DAY Medi cationGe nericNam e: hydroxyz ine HCl Not Available Not Available Not Available mupirocin 2 % topical ointment APPLY TO OPEN WOUND THREE TIMES DAILY X 7 DAYS 02/06 completed Not Available Not Available Not Available zolpidem 5 mg tablet TAKE 1 TABLET BY MOUTH AT BEDTIME NEEDED FOR SLEEP 04/13 completed Not Available Not Available Not Available hydroxyzi ne HCl 10 mg tablet TAKE 1 TABLET BY MOUTH TWICE DAILY NEEDED FOR FLARES 04/13 completed Not Available Not Available Not Available mometason e 0.1 % topical cream 04/13 completed Medicati on ID: [id number] D uration Value: 30 Brand Name: mometaso ne Send Method: E-Prescr ibed Sub s Allowed: subs OK Medic ationGen ericName : mometaso ne Not Available Not Available Not Available Flonase Allergy Relief 50 mcg/actua tion nasal spray,yen pension 2 puff into both nostrils 04/13 completed Medicati on ID: [id number] D uration Value: 120 Prescri bed By Name: TODD Hart nd Name: Flonase Allergy Relief S end Method: E-Prescr ibed Sub s Allowed: subs OK Medic ationGen ericName : Flonase Allergy Relief Not Available Not Available Not Available Opzelura 1.5 % topical cream APPLY TO AFFECTED AREA TWICE DAILY 04/13 completed Not Available Not Available Not Available Vitals Date Recorded Body height Body mass index (BMI) Body weight Provider Name and Address Organization Details Last Updated DateTime 02/07/2024 154.94 cm 23.6 kg/m2 74330.05 g Reji Mtz [place] - [facility] 02/07/2024 10:32:32 Social History None recorded. Functional Status None recorded. Mental Status None recorded. Family History Nothing Reported. Medical History No medical history recorded. Gynecological HistoryNo gynecological history recorded. Obstetrics History GPAL:G 0 P 0 0 0 0 Past Encounters Encounter ID Performer Location Encounter Start Date Encounter Closed Date Diagnosis/Indication Diagnosis SNOMED-CT Code Diagnosis ICD10 Code [id number] YANDY PERRIN MD [facility] of [address] [address] 02/07/2024 10:14:01 02/07/2024 10:42:12 Examination of ear 527131491 Z01.10 Health Concerns Section Related Observation LastModified by Organization Detai ls LastModified Time None Recorded Concern Status LastModified by Organization Details LastModified Time None Recorded Payers Encounter Date Sequence Insurance Name Policy Number Policy Sullivan Covered Member ID Sullivan Member ID Guarantor Name 02/07/2024 1 [place] B[place] [employer] Damari Kumar [facility] [id number] Damari Kumar [facility] 02/07/2024 2 [id number] Damari Kumar [facility] [id number] Damari Kumar [facility] Notes Date Note Type Note Provider Name and Address Organization Details Recorded Time 02/07/2024 text/html 73 year old female presents for ear cleaning. She denies otalgia, otorrhea, changes in her hearing, and dizziness. She did not end up getting hearing aids last year and feels that her hearing is adequate for the most part. YANDY PERRIN MD [address] [place] [address], [place], [address], [facility] - [facility] 02/07/2024 17:31:17 OBGyn Episode No OBEpisode recorded.
--- OUTSIDE RECORDS SUMMARY | 2024-04-20 10:49 | XMS_ITS ---
Author Organization [facility] Address [address] [place] [address] Care Team Providers Care B2B Outside Sales Representative Name Role Phone Saw Lora Unavailable [phone] REASON FOR VISIT FINANCE LECTURER Encounters Encounter Location Date Provider Diagnosis [address] [address] 08/19/2023 Saw Lora Plan Of Treatment No Information Progress Notes * Damari KOWALSKIDOB:1950 ([age] yo F)Acc No.[id number]:08/19/2023 Patient:?Damari Kowalski :1950???Age:73 Y???Sex:Female Address:[address] [place], [place] [address] [address] * true * Date:? Generated for Shira juarez/Mac/eTransmitting on:?04/20/2024 10:49 AM EST
--- OUTSIDE RECORDS SUMMARY | 2024-04-20 10:49 | XMS_ITS | Data Portability ---
Author Organization [place] - [facility], Allergy Address [address] [place] [address] Care Team Providers Care Sales Development Executive Name Role Phone ANGEL GREEN Primary Care [...] Sensorine ural hearing loss of bilateral ears 769517772 Active 2015 Sensorine ural hearing loss, bilateral ; Note: Date Diagnosed : 05/23/2015 11:11 AM (H90.3) Not Available [facility] 4 03:00:05 Bilateral tinnitus 90793266154 02 Active 2022 Tinnitus, bilateral ; Note: Date Diagnosed : 07/22/2022 5:07 PM (H93.13) Not Available [facility] 4 03:00:07 Headache 32477771 Active 2015 Headache; Note: Date Diagnosed : 07/21/2015 1:50 PM (R51) Not Available [facility] 4 03:00:06 Disorder of left Eustachia n tube 46805482547 66508 Active 2021 Other specified disorders of Eustachia n tube, left ear; Note: Date Diagnosed : 05/14/2021 11:36 AM (H69.82) Not Available [facility] 4 03:00:08 Impacted cerumen in right ear 03000838530 69722 Active 2016 Impacted cerumen, right ear; Note: Date Diagnosed : 10/12/2016 12:13 PM (H61.21) Note: Date Diagnosed : 10/12/2016 12:13 PM (H61.21) Not Available [facility] 4 01:13:23 Allergic rhinitis 11929610 Active 2021 Other allergic rhinitis; Note: Date Diagnosed : 05/14/2021 11:31 AM (J30.89) Not Available [facility] 4 03:00:05 Temporoma ndibular joint disorder 44775467 Active 2015 Other specified disorders of temporoma ndibular joint; Note: Date Diagnosed : 08/14/2015 12:10 PM (M26.69) Not Available [facility] 4 03:00:08 Examinati on of ear Active 2022 Encounter for examinati on of ears and hearing without abnormal findings; Note: Date Diagnosed : 01/25/2023 11:56 AM (Z01.10) Not Available [facility] 4 03:00:08 Posterior rhinorrhe a 44171688 Active 2017 Postnasal drip; Note: Date Diagnosed : 08/02/2017 11:16 AM (R09.82) Not Available [facility] 4 03:00:06 Impacted cerumen of bilateral ears 05524304609 29864 Active 2015 Impacted cerumen, bilateral ; Note: Date Diagnosed : 01/29/2016 12:19 PM (H61.23) Not Available [facility] 4 03:00:07 Chronic disease of tonsils AND/OR adenoids 89893749 Active 2017 Tonsillar tag; Location: right Not e: Date Diagnosed : 08/02/2017 11:16 AM (J35.8) Not Available [facility] 4 03:00:05 Impacted cerumen 94836050 Active 2014 Impacted cerumen; Note: Date Diagnosed : 07/17/2014 2:40 PM (380.4) Not Available [facility] 4 03:00:07 Ulcerativ e rhinitis 62501662 Active 2023 JESUS MCELROY MD [address] [facility],[place] [address], [place], [place], [phone] , [place] - [facility] 4 09:52:39 Nasal mucosa dry 34743733 Active 2023 JESUS MCELROY MD [address] [place] [address],[place] [address], [place], [place], [phone] , [facility] - [facility] 4 09:53:39 Problem Notes None recorded. Medical Equipment None Reported. Allergies No known drug allergies Medications Name Sig Start Date Stop Date Status Note LastModified by Organization Details LastModified Time tizanidin e 4 mg tablet 10/21 completed Medicati on ID: [id number] D uration Value: 30 Reason: () Brand Name: tizanidi ne Send Method: E-Prescr ibed Sub s Allowed: subs OK Speci al Instruct ion: take 1 tablet by mouth three times a day Medi cationGe nericNam e: tizanidi ne Not Available Not Available Not Available famotidin e 40 mg tablet 04/13 completed Medicati on ID: [id number] D uration Value: 30 Brand Name: famotidi [...] mg tablet 10/21 completed Medicati on ID: [id number] D uration Value: 30 Reason: () Brand [...] topical cream 04/13 completed Medicati on ID: [id number] D uration Value: 30 Brand Name: mometaso ne Send Method: E-Prescr ibed Sub s Allowed: subs OK Medic ationGen ericName : mometaso ne Not Available Not Available Not Available Flonase Allergy Relief 50 mcg/actua tion nasal spray,yen pension 2 puff into both nostrils 04/13 completed Medicati on ID: [id number] D uration Value: 120 Prescri bed By [...] Updated DateTime 02/07/2024 154.94 cm 23.6 kg/m2 70764.05 g Reji Mtz [facility] 02/07/2024 10:32:32 Date Recorded Body height Body mass index (BMI) Body weight Provider Name and Address Organization Details Last Updated DateTime 04/13/2024 154.94 cm 23.6 kg/m2 68068.05 g Francoise Burgos [facility] 04/13/2024 09:16:54 Social History None recorded. Functional Status None recorded. Mental Status None recorded. Family History Nothing Reported. Medical History No medical history recorded. Gynecological HistoryNo gynecological history recorded. Obstetrics History GPAL:G 0 P 0 0 0 0 Past Encounters Encounter ID Performer Location Encounter Start Date Encounter Closed Date Diagnosis/Indication Diagnosis SNOMED-CT Code Diagnosis ICD10 Code [id number] AYNDY PERRIN MD [facility] [address] [address] 02/07/2024 10:14:01 02/07/2024 10:42:12 Examination of ear 973264562 Z01.10 [id number] JESUS MCELROY MD [facility] [address] [address] 04/13/2024 09:12:22 04/13/2024 09:40:00 Nasal mucosa dry 64081768 J34.89 Health Concerns Section Related Observation LastModified by Organization Detai ls LastModified Time None Recorded Concern Status LastModified by Organization Details LastModified Time None Recorded Advance Directives Directive None Recorded Payers Encounter Date Sequence Insurance Name Policy Number Policy Sullivan Covered Member ID Sullivan Member ID Guarantor Name 02/07/2024 1 MEDICARE B-[place]: [facility] Damari Kumar [facility] [id number] Damari Kumar [facility] 02/07/2024 2 [place] [facility] Damari Kumar [facility] [id number] Damari Kumar [facility] 04/13/2024 1 MEDICARE B-[place]: [facility] Damari Kumar [facility] [id number] Damari Kumar [facility] 04/13/2024 2 [place] [facility] Damari Kumar [facility] [id number] Damari Kumar [facility] Notes Date Note Type Note Provider Name and Address Organization Details Recorded Time 02/07/2024 text/html 73 year old female presents for ear cleaning. She denies otalgia, otorrhea, changes in her hearing, and dizziness. She did not end up getting hearing aids last year and feels that her hearing is adequate for the most part. YANDY PERRIN MD [address] [place] [address], [phone], [facility] 02/07/2024 17:31:17 04/13/2024 text/html 73 yo F presents with some irritation left nasal septum; she has noted some white spot and irritation, airflow seems ok usually.Dr. Varma diagnosed her deviated septum many years ago.Saline helps. Usually seen for cerumen. JESUS MCELROY MD [address] [place] [address], [phone], [facility] 04/13/2024 09:54:36 OBGyn Episode No OBEpisode recorded.
--- OUTSIDE RECORDS SUMMARY | 2024-04-20 10:49 | XMS_ITS ---
Author Organization [facility] Address [address] [place] [address] Care Team Providers Care Jigger Artisan Name Role Phone Saw Lora Unavailable [phone] Encounters Encounter Location Date Provider Diagnosis [facility] [address] [facility] [address] [place] [address] 11/14/2023 Saw Lora Plan Of Treatment No Information Progress Notes * Damari KOWALSKIDOB:1950 (7 3 yo F)Acc No.[id number]:11/14/2023 Progress Notes Patient:?Damari KOWALSKI Provider:?Saw Lora DPM :1950???Age:73 Y???Sex:Female D ate:11/14/2023 Address:[address] [place] [address] Subjective: * Chief Complaints: * ??? * Medical History:? Objective: * Vitals:? Assessment: Plan: * Treatment: * Images: * The named appointment provid er may or may not be the originator of this progress note, and it is not deemed complete until electronically signed by the appointment provider. Sign off status: Pending * Provider:?Saw Lora DPM Date:?2023 Generated for Shira juarez/Mac/Kwabenaitting on:?04/20/2024 10:49 AM EST
--- OUTSIDE RECORDS SUMMARY | 2024-04-20 10:49 | XMS_ITS | Continuity of Care Document ---
Author Organization [place] - [facility], [facility] Address [address] [place] [address] Care Team Providers Care Farm Contractor Buyer Name Role Phone ANGEL GREEN Primary Care Provider Assessment No assessment recorded. Plan of Treatment Reminders Order Date Submit [...] Sensorine ural hearing loss of bilateral ears 458767930 Active 2015 Sensorine ural hearing loss, bilateral ; Note: Date Diagnosed : 05/23/2015 11:11 AM (H90.3) Not Available [facility] 4 03:00:05 Bilateral tinnitus 46218296265 02 Active 2022 Tinnitus, bilateral ; Note: Date Diagnosed : 07/22/2022 5:07 PM (H93.13) Not Available [facility] 4 03:00:07 Headache 05604604 Active 2015 Headache; Note: Date Diagnosed : 07/21/2015 1:50 PM (R51) Not Available [facility] 4 03:00:06 Disorder of left Eustachia n tube 30855971013 08614 Active 2021 Other specified disorders of Eustachia n tube, left ear; Note: Date Diagnosed : 05/14/2021 11:36 AM (H69.82) Not Available [facility] 4 03:00:08 Impacted cerumen in right ear 73484289129 30298 Active 2016 Impacted cerumen, right ear; Note: Date Diagnosed : 10/12/2016 12:13 PM (H61.21) Note: Date Diagnosed : 10/12/2016 12:13 PM (H61.21) Not Available [facility] 4 01:13:23 Allergic rhinitis 34073029 Active 2021 Other allergic rhinitis; Note: Date Diagnosed : 05/14/2021 11:31 AM (J30.89) Not Available [facility] 4 03:00:05 Temporoma ndibular joint disorder 97856921 Active 2015 Other specified disorders of temporoma ndibular joint; Note: Date Diagnosed : 08/14/2015 12:10 PM (M26.69) Not Available [facility] 4 03:00:08 Examinati on of ear Active 2022 Encounter for examinati on of ears and hearing without abnormal findings; Note: Date Diagnosed : 01/25/2023 11:56 AM (Z01.10) Not Available [facility] 4 03:00:08 Posterior rhinorrhe a 05391373 Active 2017 Postnasal drip; Note: Date Diagnosed : 08/02/2017 11:16 AM (R09.82) Not Available [facility] 4 03:00:06 Impacted cerumen of bilateral ears 67189999650 25154 Active 2015 Impacted cerumen, bilateral ; Note: Date Diagnosed : 01/29/2016 12:19 PM (H61.23) Not Available [facility] 4 03:00:07 Chronic disease of tonsils AND/OR adenoids 78495088 Active 2017 Tonsillar tag; Location: right Not e: Date Diagnosed : 08/02/2017 11:16 AM (J35.8) Not Available [facility] 4 03:00:05 Impacted cerumen 23140079 Active 2014 Impacted cerumen; Note: Date Diagnosed : 07/17/2014 2:40 PM (380.4) Not Available [facility] 4 03:00:07 Ulcerativ e rhinitis 01318642 Active 2023 JESUS MCELROY MD [address] [facility] [address], [place], [place], [address] , [place] - [facility] 4 09:52:39 Nasal mucosa dry 92953565 Active 2023 JESUS MCELROY MD [address] [facility] [address], [place], [place], [address] , [place] - [facility] 4 09:53:39 Problem Notes None recorded. Medical Equipment None Reported. Allergies No known drug allergies Medications Name Sig Start Date Stop Date Status Note LastModified by Organization Details LastModified Time tizanidin e 4 mg tablet 10/21 completed Medicati on ID: [id number] D uration Value: 30 Reason: () Brand Name: tizanidi ne Send Method: E-Prescr ibed Sub s Allowed: subs OK Speci al Instruct ion: take 1 tablet by mouth three times a day Medi cationGe nericNam e: tizanidi ne Not Available Not Available Not Available famotidin e 40 mg tablet 04/13 completed Medicati on ID: [id number] D uration Value: 30 Brand Name: famotidi [...] mg tablet 10/21 completed Medicati on ID: [id number] D uration Value: 30 Reason: () Brand [...] topical cream 04/13 completed Medicati on ID: [id number] D uration Value: 30 Brand Name: mometaso ne Send Method: E-Prescr ibed Sub s Allowed: subs OK Medic ationGen ericName : mometaso ne Not Available Not Available Not Available Flonase Allergy Relief 50 mcg/actua tion nasal spray,yen pension 2 puff into both nostrils 04/13 completed Medicati on ID: [id number] D uration Value: 120 Prescri bed By [...] Updated DateTime 04/13/2024 154.94 cm 23.6 kg/m2 81895.05 g Francoise Burgos [place] - [facility] 04/13/2024 09:16:54 Social History None recorded. Functional Status None recorded. Mental Status None recorded. Family History Nothing Reported. Medical History No medical history recorded. Gynecological HistoryNo gynecological history recorded. Obstetrics History GPAL:G 0 P 0 0 0 0 Past Encounters Encounter ID Performer Location Encounter Start Date Encounter Closed Date Diagnosis/Indication Diagnosis SNOMED-CT Code Diagnosis ICD10 Code [id number] JESUS MCELROY MD [facility] [address] [address] 04/13/2024 09:12:22 04/13/2024 09:40:00 Nasal mucosa dry 31061118 J34.89 Health Concerns Section Related Observation LastModified by Organization Detai ls LastModified Time None Recorded Concern Status LastModified by Organization Details LastModified Time None Recorded Payers Encounter Date Sequence Insurance Name Policy Number Policy Sullivan Covered Member ID Sullivan Member ID Guarantor Name 04/13/2024 1 MEDICARE B-MI: [employer] [facility] [id number] [facility] 04/13/2024 2 MEDICAID-[place]: [facility] [id number] [facility] Notes Date Note Type Note Provider Name and Address Organization Details Recorded Time 04/13/2024 text/html 73 yo F presents with some irritation left nasal septum; she has noted some white spot and irritation, airflow seems ok usually.Dr. Varma diagnosed her deviated septum many years ago.Saline helps. Usually seen for cerumen. JESUS MCELROY MD [address] [place] [address], [phone], [place] - [facility] 04/13/2024 09:54:36 OBGyn Episode No OBEpisode recorded.
--- OUTSIDE RECORDS SUMMARY | 2024-04-20 10:49 | XMS_ITS ---
Author Organization [facility] Address [address] [place] [phone] Care Team Providers Care Platform Builder Name Role Phone Saw Lora Unavailable [phone] REASON FOR VISIT cx 11/14/2023 appt Encounters Encounter Location Date Provider Diagnosis [address] [address] 08/30/2023 Saw Lora Plan Of Treatment No Information Progress Notes * Jensen KOWALSKIblancaDOB:1950 ([age] yo F)Acc No.[id number]:08/30/2023 Patient:?Damari Kowalski :1950???Age:73 Y???Sex:Female Address:[address] [place] [address] [place] [address] * true * Date:? Generated for Shira juarez/Mac/eTransmitting on:?04/20/2024 10:49 AM EST
--- OUTSIDE RECORDS SUMMARY | 2024-04-20 10:50 | XMS_ITS | Patient Health Record ---
Author Organization [facility] Address [address] [place] [address] Care Team Providers Care Film Historian Name Role Phone Saw Lora Unavailable [phone] Reason For Referral No Information Encounters Encounter Location Date Provider Diagnosis [facility] [address] [place] [address] [facility] [address] [facility]/30/[facility]23 Saw Lora Plan Of Treatment No Information Insurance Providers Payer Name Payer Address Payer Phone Subscriber Number Group Number Insured Name Patient Relationship to Insured Coverage Start Date Coverage End Date [facility] [employer] Claims [address] [place] [id number] Damari Campos Self - patient is the insured
== END 2024-04-20 11:54 | disposition home or self-care (01) ==
PROVIDERS: PCP Internal Medicine
DX: Z00.00 Encounter for general adult medical examination without abnormal findings (principal); R03.0 Elevated blood-pressure reading, without diagnosis of hypertension; F31.9 Bipolar disorder, unspecified; E78.00 Pure hypercholesterolemia, unspecified; J45.20 Mild intermittent asthma, uncomplicated; J98.4 Other disorders of lung; M81.0 Age-related osteoporosis without current pathological fracture; E55.9 Vitamin D deficiency, unspecified; L30.9 Dermatitis, unspecified; K21.9 Gastro-esophageal reflux disease without esophagitis

== ENCOUNTER 2024-05-23 08:09 | Outpatient (AMB) | payer MEDICARE, MEDICAID, SELFPAY ==
[2024-05-23 08:49] VITALS: BP 140/80; PULSE 60; TEMP 36.9; O2SAT 97
--- NOTE | 2024-05-23 08:49 | AM.OFFWIN_ITS ---
Intake Vital Signs 05/23/24 08:49 Height 5 ft BMI Reason not done Patient refused/unable BP 140/80 H Blood Pressure Location Rt brachial Position Sitting Pulse 60 Pulse Source Pulse Oximeter Temp 98.5 F Temp Source Oral Pulse Oximetry (%) 97 Oxygen Delivery Method Room Air Intake Visit Reasons: EP ?sinus infection Intake Note: Patient here for sinus pressure, headache and gum pain that has been present for about 2 days. Patient Tobacco Use Status: Never used Tobacco Allergies alcohol [ALCOHOL] Allergy (Unknown, Verified 05/23/24 08:57) ON SKIN - HIVES , SWELLING gluten [GLUTEN] Allergy (Unknown, Verified 05/23/24 08:57) HIVES latex [LATEX] Allergy (Unknown, Verified 05/23/24 08:57) HIVES,SWELLING mold Allergy (Unknown, Verified 05/23/24 08:57) HIVES yeast, dried [YEAST] Allergy (Unknown, Verified 05/23/24 08:57) HIVES cephalexin [From Keflex] Adverse Reaction (Intermediate, Verified 05/23/24 08:57) sleepy dairy Allergy (Mild, Uncoded 05/23/24 08:57) Hives smoked meat Allergy (Mild, Uncoded 05/23/24 08:57) Hives Do you need a note to return to daycare/school/sports/work: No HPI HPI Comments History of Present Illness Details Patirnt is a 74yo F who presents with sinus congestion She presents to office with sinus pressure Ongoing multiple days SHe said + congestion and sinus pressure + nasal congestion and runny nose Has been seen by PCP Dr Darby in past for these She tends to get an infection every year or every other year Sinus pressure in forehead is 5/10 but at night it is worse Patient has tried no OTC No fever or chills Patient denies ST or ear pain No cough, SOB or CP PFSH Medical History Upper respiratory infection Adult general medical exam Irritable bowel syndrome with both constipation and diarrhea Urethritis Asthma Restrictive lung disease Cough Screening for diabetes mellitus Low back pain Acute sinusitis Irritable bowel syndrome with constipation Tubular adenoma of colon Hx of osteopenia Lumbar disc disease Bronchitis with flu GERD (gastroesophageal reflux disease) PTSD (post-traumatic stress disorder) Panic disorder History of chronic rhinitis Fibrocystic breast disease Osteoarthritis Hx of irritable bowel syndrome Neurodermatitis Surgical History History of colonoscopy Hx of esophagogastroduodenoscopy Hx of tonsillectomy Hx of cholecystectomy H/O colonoscopy with polypectomy Family History Father Alcoholic Arthritis Mother Schizophrenia Heart failure Brother Hep C w/ coma, chronic Drug addict Cancer Other Mental health disorder Substance use disorder Social History Household Members: Friend(s) and None Housing: Other Alcohol intake: current Alcohol intake frequency: holidays/special occasions only Alcohol type: wine Patient Tobacco Use Status: Never used Tobacco Tobacco use type: Cigarette e-Cigarette/Vaping Use: Never Used Second Hand Smoke Exposure: No service: No Current occupational status: retired Cognitive needs: No Hearing needs: No Vision needs: No Review of Systems Const Denies chills, Denies fever(s) and Reports headache(s) Eyes Denies change in vision ENT Denies dizziness, Denies otalgia, Reports headache(s), Reports nasal congestion, Reports nasal discharge, Reports sinus pain, Reports sinus pressure, Denies sore throat, Denies throat swelling and Denies tongue swelling Card Denies chest pain and Denies dyspnea Resp Denies chest congestion, Denies cough and Denies dyspnea Skin/Breast Denies rash Neuro Denies confusion, Denies dizziness and Reports headache(s) Psych Denies confusion Aller/Immun Denies throat swelling and Denies tongue swelling Physical Exam Vital Signs: Last Vital Signs Temp 98.5 F 05/23/24 08:49 Pulse 60 05/23/24 08:49 BP 140/80 H 05/23/24 08:49 Pulse Ox 97 05/23/24 08:49 Oxygen Delivery Method Room Air 05/23/24 08:49 General: Non-toxic, NAD. Speaking full sentences. Skin: Warm dry throughout Eye: EOMI HENT: Airway patent. Uvula midline. No pharyngeal erythema or edema. No CUSTOMER SERVICE ADVOCATE. Bilateral canals clear. TM non-erythematous, non-bulging. No TM perforation or hemotympanum noted. + sinus congestion with associated ttp maxillary sinuses bilaterally, R>L Lymph: No lymphadenopathy palpated Respiratory: CTA bilaterally. No wheezes, rales or rhonchi Cardiac: RRR. No murmur MSK: Full ROM extremities. Neurology: Alert. No aphasia or facial droop. Gait without abnormality Psych: Good mood and affect Const General: No confusion Orientation/consciousness: No confusion Neuro General: No confusion Assessment & Plan Assessment & Plan (1) Sinusitis: Code(s): J32.9 - Chronic sinusitis, unspecified Qualifiers: Sinusitis location: maxillary Chronicity: acute Recurrence: non- recurrent Qualified Code(s): J01.00 - Acute maxillary sinusitis, unspecified Plan: Patient seen and evaluated. Augmentin; has taken in past without side effects F/U with PCP Patient gave verbal understanding and had no additional questions or concerns at time of discharge All questions answered Medications: New amoxicillin-pot clavulanate 875-125 mg 1 tab PO Q12H 20 tabs 0RF Coding Level of Care Code Est Pt Level 3 (65532) Diagnoses Acute non-recurrent maxillary sinusitis J01.00 Sinusitis location: maxillary Chronicity: acute Recurrence: non-recurrent
== END 2024-05-23 09:21 | disposition home or self-care (01) ==
PROVIDERS: PCP Internal Medicine; Visit Provider Physician Assistant
DX: J01.00 Acute maxillary sinusitis, unspecified (principal)

== ENCOUNTER → 2024-05-23 08:09 | Outpatient (BNVA) | payer MEDICARE, MEDICAID, SELFPAY | PROVIDERS: PCP Internal Medicine; Visit Provider Physician Assistant | DX: J01.00 Acute maxillary sinusitis, unspecified (principal) | CPT/HCPCS: 99212 ==

== ENCOUNTER 2024-07-12 10:46 | Outpatient (AMB) | payer MEDICARE, MEDICAID, SELFPAY ==
--- NOTE | 2024-07-12 11:03 | A.OFFPC_ITS ---
Vital Signs 07/12/24 11:05 Height 5 ft BMI Reason not done Patient refused/unable BP 132/70 Blood Pressure Location Lt brachial Position Sitting Pulse 49 L Pulse Source Pulse Oximeter Temp 97.1 F Temp Source Temporal Artery Scan Pulse Oximetry (%) 99 Oxygen Delivery Method Room Air Intake Visit Reasons: Blood pressure elevated Intake Note: Patient is here to follow up on BP elevate. Environmental Compliance Inspector Required: No Leaf Tier: Not Required per policy Accompanied by: Self / Same As Patient Allergies alcohol [ALCOHOL] Allergy (Unknown, Verified 07/12/24 11:04) ON SKIN - HIVES , SWELLING gluten [GLUTEN] Allergy (Unknown, Verified 07/12/24 11:04) HIVES latex [LATEX] Allergy (Unknown, Verified 07/12/24 11:04) HIVES,SWELLING mold Allergy (Unknown, Verified 07/12/24 11:04) HIVES yeast, dried [YEAST] Allergy (Unknown, Verified 07/12/24 11:04) HIVES cephalexin [From Keflex] Adverse Reaction (Intermediate, Verified 07/12/24 11:04) sleepy dairy Allergy (Mild, Uncoded 07/12/24 11:04) Hives smoked meat Allergy (Mild, Uncoded 07/12/24 11:04) Hives Tobacco use date assessed: 07/12/24 Fall risk assessment: No Falls in past year Last assessed Fall Risk: 07/12/24 Dental Screening Dental Screen Date: 07/12/24 Did you have a dental visit in the last 12 months?: No Did you have a dental problem in the last 6 months where you did not have access to dental care?: No Was dental information given to patient?: Patient has dentist [facility] Medical History (Updated 07/12/24 @ 11:30 by Reynaldo Strong MD) Osteopenia Upper respiratory infection Adult general medical exam Irritable bowel syndrome with both constipation and diarrhea Urethritis Asthma Restrictive lung disease Cough Screening for diabetes mellitus Low back pain Acute sinusitis Irritable bowel syndrome with constipation Tubular adenoma of colon Hx of osteopenia Lumbar disc disease Bronchitis with flu GERD (gastroesophageal reflux disease) PTSD (post-traumatic stress disorder) Panic disorder History of chronic rhinitis Fibrocystic breast disease Osteoarthritis Hx of irritable bowel syndrome Neurodermatitis Surgical History History of colonoscopy Hx of esophagogastroduodenoscopy Hx of tonsillectomy Hx of cholecystectomy H/O colonoscopy with polypectomy Family History Father Alcoholic Arthritis Mother Schizophrenia Heart failure Brother Hep C w/ coma, chronic Drug addict Cancer Other Mental health disorder Substance use disorder Social History Household Members: Friend(s) and None Housing: Other Alcohol intake: current Alcohol intake frequency: holidays/special occasions only Alcohol type: wine Patient Tobacco Use Status: Never used Tobacco Tobacco use type: Cigarette e-Cigarette/Vaping Use: Never Used Second Hand Smoke Exposure: No service: No Current occupational status: retired Cognitive needs: No Hearing needs: No Vision needs: No Questionnaire PHQ-9 Over the last 2 weeks, how often have you been bothered by any of the following problems? 1. Little interest or pleasure in doing things: not at all 2. Feeling down, depressed, or hopeless: not at all 3. Trouble falling or staying asleep, or sleeping too much: not at all 4. Feeling tired or having little energy: not at all 5. Poor appetite or overeating: not at all 6. Feeling bad about yourself - or that you are a failure or have let yourself or your family down: not at all 7. Trouble concentrating on things, such as reading the newspaper or watching television: not at all 8. Moving or speaking so slowly that other people could have noticed. Or the opposite - being so fidgety or restless that you have been moving around a lot more than usual: not at all 9. Thoughts that you would be better off or of hurting yourself in some way: not at all Total score: 0 Depression Screening Interpretation: Negative Depression Screening Done: Yes Source: Developed by Drs. Diogenes Emanuel, Mercy Khalil, Raman Madsen and colleagues, with an educational lisa from [employer]. Thrive Questionnaire Date Thrive assessed: 07/12/24 I am a: Patient What is your living situation today?: I have a steady place to live Within the past 12 months, did the food you bought not last and you didn't have the money to get more?: Never true Within the past 12 months, did you worry whether your food would run out before you got money to buy more?: Never true Do you have trouble paying for medicines?: No Do you have trouble getting transportation to medical appointments?: No Do you have trouble paying your heating and electricity bill?: No Do you have trouble taking care of your child, family member or friend?: No Do you have trouble with day-to-day activities such as bathing, preparing meals, shopping, managing finances, etc.?: No Are you currently unemployed and looking for a job?: No Are you interested in more education?: No Please select the resources that you would like help with: None Currently or been in a relationship where the following occur: No concerns reported THRIVE Score: 0 AUDIT C Alcohol Use Questionnaire (AUDIT-C) 1. How often do you have a drink containing alcohol?: Never Total Score: 0 MEENU-7 AMB Questionnaire MEENU-7 Date MEENU - 7 assessed: 07/12/24 Feeling nervous, anxious, or on edge: 3 = Nearly every day (Has a therapist) Not being able to stop or control worryin = More than half the days Worrying too much about different things: 2 = More than half the days Trouble relaxin = More than half the days Being so restless that it is hard to sit still: 2 = More than half the days Becoming easily annoyed or irritable: 0 = Not at all Feeling afraid as if something awful might happen: 0 = Not at all Total MEENU-7 score (0-4 normal; 5-9 mild; 10-14 moderate; 15-21 severe): 11 Source: Developed by Drs. Diogenes Emanuel, Mercy Khalil, Raman Madsen and colleagues, with an educational lisa from [employer]. Physical exam (Primary Care) Vital Signs: Last Vital Signs Temp 97.1 F 07/12/24 11:05 Pulse 49 L 07/12/24 11:05 BP 132/70 07/12/24 11:05 Pulse Ox 99 07/12/24 11:05 Oxygen Delivery Method Room Air 07/12/24 11:05 Tobacco/Smoking Status: Tobacco use Status Tobacco use date assessed 07/12/24 07/12/24 11:10 Patient Tobacco Use Status Never used Tobacco 07/12/24 11:10 Tobacco use type Cigarette 07/12/24 11:10 e-Cigarette/Vaping Use Never Used 07/12/24 11:10 PHQ-9: PHQ-9 Score PHQ-9: Total score 0 07/12/24 11:33 Depression Screening Interpretation: Negative Thrive Assessment: Date of Thrive Assessment Date Thrive assessed 07/12/24 07/12/24 11:10 Currently or been in a relationship where the following occur: No concerns reported Const General: alert; No acute distress Eyes Conjunctivae: conjunctivae normal Resp Auscultation: clear to auscultation bilaterally Cardio Rate: regular rate Rhythm: regular rhythm GI Inspection: Yes normal to inspection Extrem General: Yes normal to inspection and No edema Coding Level of Care Code Est Pt Level 4 (14051) Diagnoses Gastroesophageal reflux disease without esophagitis K21.9 Esophagitis presence: without esophagitis Bipolar 1 disorder F31.9 Insomnia G47.00 Hypercholesterolemia E78.00 Mild intermittent asthma without complication J45.20 Asthma complication type: uncomplicated Asthma persistence: intermittent Asthma severity: mild Assessment & Plan Assessment & Plan (1) GERD (gastroesophageal reflux disease): Code(s): K21.9 - Gastro-esophageal reflux disease without esophagitis Category: Medical Qualifiers: Esophagitis presence: without esophagitis Qualified Code(s): K21.9 - Gastro-esophageal reflux disease without esophagitis Plan: Avoid the foods that causes that usually spicy foods, tomato products, juices, coffee, soda and foods that your sensitive to. After eating do not lie down, allow 3-4 hours before in lie down. And keep the head of bed above 30 degrees to avoid the acid from going up. On omeprazole (2) Bipolar 1 disorder: Comment: [facility] counselling once a week (12/2020) Code(s): F31.9 - Bipolar disorder, unspecified Category: Medical Plan: Continue with counseling and therapy now twice a week. declined med (3) Insomnia: Code(s): G47.00 - Insomnia, unspecified Category: Medical Plan: Patient is advised to eat healthy, keep well hydrated, keep active and have adequate sleep. (4) Hypercholesterolemia: Code(s): E78.00 - Pure hypercholesterolemia, unspecified Category: Medical Plan: Avoid fried foods, chicken skin, eggs, butter margarine, pastries and meat. Be it pork or beef they have a lot of cholesterol (5) Asthma: Comment: EPISODES OF FEELING LIKE BRONCHOSPASM, AND SOME MUCUS IN THE UPPER AIRWAYS, MOST LIKELY DUE TO MILD INTERMITTENT BRONCHOSPASMS . SHE IS EXPLAINED ABOUT THIS AND REASSURED. MAY USE 1 OR 2 PUFFS OF PROAIR ONLY P.R.N. WHEN SHE HAS THIS KIND OF EPISODE. Code(s): J45.909 - Unspecified asthma, uncomplicated Category: Medical Qualifiers: Asthma complication type: uncomplicated Asthma persistence: intermittent Asthma severity: mild Qualified Code(s): J45.20 - Mild intermi ttent asthma, uncomplicated Plan: Patient on albuterol as needed Plan History of Present Illness The patient is a 74-year-old female presenting with a follow-up for her chronic medical conditions, notably GERD managed with omeprazole, improving hypercholesterolemia, and asthma controlled by as-needed albuterol. Past diagnostic evaluations show osteoporosis, managed with exercise, and vitamin D deficiency currently addressed with dietary supplements. Psychiatric conditions include bipolar disorder, managed with regular therapy sessions due to issues with medications in the past. Recent lab work indicates stable chronic conditions, with noted improvement in cholesterol levels. There are no additional acute concerns noted during this visit. Health Maintenance - Mammogram scheduled for May 05. - Bone density scan updated as of February 2024. - Cologuard planned instead of a colonoscopy this year. - Continuation of regular therapy sessions for mental health. Social History - Engages in regular walking and exercise as part of osteoporosis management. - Dietary modifications include the incorporation of beet juice for improved cardiovascular health. - Avoids widely populated events to reduce the risk of infections. - Practices hand hygiene religiously. Review of Systems - Respiratory: Denies increased usage of her inhaler, except in dry conditions. - Psychiatric: Reports stable mood with therapist support twice a week. Denies active medication management. - Dermatologic: Reports persistent skin condition managed with past antibiotics, planning follow-up. - Gastrointestinal: Reports effects of GERD under control with current medication. Physical Exam Results - Labs: Normal blood count, electrolytes, renal function, blood sugar, liver function, and cholesterol levels. - Tests: Bone density scan up to date. - Vitamin D deficiency with level reported at 22. Plan The visit centers on the follow-up for GERD, bipolar disorder, insomnia, hypercholesterolemia, osteoporosis, and asthma, with a note on a recently treated sinus infection. GERD continues under control with omeprazole. Continuation with regular therapy sessions is effective for mental health management without pharmacologic control. Dietary changes show a notable improvement in cholesterol levels with ongoing self-monitoring of blood pressure. Osteoporosis is monitored with updated bone density and proactive exercises; vitamin D supplements address existing deficiency. Asthma remains managed with as-needed albuterol. Sinusitis resolved with Augmentin avoidance of further complications. Preventive care includes a scheduled mammogram and planned Cologuard testing. Dermal concerns await further dermatological consultation in August. Regular check-ins recommended to assess ongoing therapeutic interventions and ajust as necessary. Patient was informed and verbally consented to the use of an ambient scribe for clinic note documentation during this visit. Discussion Notes During today's session, souza discussions included the management of GERD with plans to continue omeprazole. Regular therapy for bipolar disorder will persist, no medication prescribed due to adverse effects. Dietary modifications proving effective for cholesterol management with recent labs indicating improvement. Asthma monitored through albuterol use on as-needed basis. Discussed the recent sinus infection managed with Augmentin. Masoud maintenance activities include a scheduled mammogram, Cologuard as an alternative to colonoscopy, and updated osteoporosis management via exercises and supplements. Advised on regular follow-ups, maintaining preventive measures against respiratory and dermal conditions. Safety discussed in relation to avoiding overcrowding and infection preventative measures. Patient Instructions - Continue taking omeprazole as prescribed. - Keep therapy appointments as scheduled. - Maintain dietary changes, specifically the inclusion of beets, to support cardiovascular health. - Use albuterol inhaler as needed for asthma exacerbations. - Maintain regular physical activity, focusing on osteoporosis exercises provided by PT. - Schedule for Cologuard in lieu of a colonoscopy due to GERD concerns. - Attend mammogram appointment on May 05. - Follow up with dermatology in August for ongoing skin issues. - Practice strict infection control measures to reduce risk of respiratory infections.
[2024-07-12 11:05] VITALS: BP 132/70; PULSE 49; TEMP 36.2; O2SAT 99
--- OUTSIDE RECORDS SUMMARY | 2024-07-12 13:01 | XMS_ITS | Patient Health Record ---
Author Organization [facility] Address [address] [place] [address] Care Team Providers Care Statement Clerks Supervisor Name Role Phone Saw Lora Unavailable [phone] Reason For Referral No Information Encounters Encounter Location Date Provider Diagnosis [facility] [address] [place] [address] [facility] [address] 08/30/2023 Saw Lora Plan Of Treatment No Information Insurance Providers Payer Name Payer Address Payer Phone Subscriber Number Group Number Insured Name Patient Relationship to Insured Coverage Start Date Coverage End Date [facility] [employer] Claims [address] [place] How[place] [id number] Damari Campos Self - patient is the insured
--- OUTSIDE RECORDS SUMMARY | 2024-07-12 13:01 | XMS_ITS ---
Author Organization [facility] Address [address] [place] [address] Care Team Providers Care Oil Burner Repairer Name Role Phone Saw Lora Unavailable [phone] REASON FOR VISIT DOG HANDLER Encounters Encounter Location Date Provider Diagnosis [address] [address] 08/19/2023 Saw Lora Plan Of Treatment No Information Progress Notes * Damari KOWALSKIDOB:1950 ([age] yo F)Acc No.[id number]:08/19/2023 Patient:?Damari Kowalski :1950???Age:73 Y???Sex:Female Address:[address] [place], [place] [address] [address] * true * Date:? Generated for Shira juarez/Mac/Theresasmitting on:?07/12/2024 01:01 PM EST
--- OUTSIDE RECORDS SUMMARY | 2024-07-12 13:01 | XMS_ITS ---
Author Organization [facility] Address [address] [place] [address] Care Team Providers Care Network Control Operator Name Role Phone Saw Lora Unavailable [phone] Encounters Encounter Location Date Provider Diagnosis [facility] [address] [facility] [address] [place] [phone] 11/14/2023 Saw Lora Plan Of Treatment No Information Progress Notes * Damari KOWALSKIDOB:1950 ([age] yo F)Acc No.[id number]:11/14/2023 Progress Notes Patient:?Damari KOWALSKI Provider:?Saw Lora DPM :1950???Age:73 Y???Sex:Female D ate:11/14/2023 Address:[address] [place] [address] Subjective: * Chief Complaints: * ??? * Medical History:? Objective: * Vitals:? Assessment: Plan: * Treatment: * Images: * The named appointment provid er may or may not be the originator of this progress note, and it is not deemed complete until electronically signed by the appointment provider. Sign off status: Pending * Provider:?Saw Lora DPM Date:?2023 Generated for Shira juarez/Mac/Xiomara on:?07/12/2024 01:00 PM EST
--- OUTSIDE RECORDS SUMMARY | 2024-07-12 13:01 | XMS_ITS | Data Portability ---
Author Organization [place] [facility] Address [address] [place] [address] Care Team Providers Care Registered Dental Hygienist Name Role Phone ANGEL GREEN Primary Care [...] Sensorine ural hearing loss of bilateral ears 290903819 Active 2015 Sensorine ural hearing loss, bilateral ; Note: Date Diagnosed : 05/23/2015 11:11 AM (H90.3) Not Available [facility] 4 03:00:05 Bilateral tinnitus 22518388601 02 Active 2022 Tinnitus, bilateral ; Note: Date Diagnosed : 07/22/2022 5:07 PM (H93.13) Not Available [facility] 4 03:00:07 Headache 57196613 Active 2015 Headache; Note: Date Diagnosed : 07/21/2015 1:50 PM (R51) Not Available [facility] 4 03:00:06 Disorder of left Eustachia n tube 84901825845 95892 Active 2021 Other specified disorders of Eustachia n tube, left ear; Note: Date Diagnosed : 05/14/2021 11:36 AM (H69.82) Not Available [facility] 4 03:00:08 Impacted cerumen in right ear 00329011307 94087 Active 2016 Impacted cerumen, right ear; Note: Date Diagnosed : 10/12/2016 12:13 PM (H61.21) Note: Date Diagnosed : 10/12/2016 12:13 PM (H61.21) Not Available [facility] 4 01:13:23 Allergic rhinitis 83821534 Active 2021 Other allergic rhinitis; Note: Date Diagnosed : 05/14/2021 11:31 AM (J30.89) Not Available [facility] 4 03:00:05 Temporoma ndibular joint disorder 88524869 Active 2015 Other specified disorders of temporoma ndibular joint; Note: Date Diagnosed : 08/14/2015 12:10 PM (M26.69) Not Available [facility] 4 03:00:08 Examinati on of ear Active 2022 Encounter for examinati on of ears and hearing without abnormal findings; Note: Date Diagnosed : 01/25/2023 11:56 AM (Z01.10) Not Available [facility] 4 03:00:08 Posterior rhinorrhe a 17898430 Active 2017 Postnasal drip; Note: Date Diagnosed : 08/02/2017 11:16 AM (R09.82) Not Available [facility] 4 03:00:06 Impacted cerumen of bilateral ears 51385985058 27116 Active 2015 Impacted cerumen, bilateral ; Note: Date Diagnosed : 01/29/2016 12:19 PM (H61.23) Not Available [facility] 4 03:00:07 Chronic disease of tonsils AND/OR adenoids 55623618 Active 2017 Tonsillar tag; Location: right Not e: Date Diagnosed : 08/02/2017 11:16 AM (J35.8) Not Available [facility] 4 03:00:05 Impacted cerumen 33822625 Active 2014 Impacted cerumen; Note: Date Diagnosed : 07/17/2014 2:40 PM (380.4) Not Available [facility] 4 03:00:07 Ulcerativ e rhinitis 70596830 Active 2023 JESUS MCELROY MD [address] [facility],[place] [address], [place]az[place], [place], [phone] , [place] [facility] 4 09:52:39 Nasal mucosa dry 20830245 Active 2023 JESUS MCELROY MD [address] [place] [address],[place] [address], [place]az[place], [place], [phone] , [facility] - [facility] 4 09:53:39 Problem Notes None recorded. Medical Equipment None Reported. Allergies No known drug allergies Medications Name Sig Start Date Stop Date Status Note LastModified by Organization Details LastModified Time tizanidin e 4 mg tablet 10/21 completed Medicati on ID: [id number] D uration Value: 30 Reason: () Brand Name: tizanidi ne Send Method: E-Prescr ibed Sub s Allowed: subs OK Speci al Instruct ion: take 1 tablet by mouth three times a day Medi cationGe nericNam e: tizanidi ne Not Available Not Available Not Available famotidin e 40 mg tablet 04/13 completed Medicati on ID: [id number] D uration Value: 30 Brand Name: famotidi [...] mg tablet 10/21 completed Medicati on ID: [id number] D uration Value: 30 Reason: () Brand [...] topical cream 04/13 completed Medicati on ID: [id number] D uration Value: 30 Brand Name: mometaso ne Send Method: E-Prescr ibed Sub s Allowed: subs OK Medic ationGen ericName : mometaso ne Not Available Not Available Not Available Flonase Allergy Relief 50 mcg/actua tion nasal spray,yen pension 2 puff into both nostrils 04/13 completed Medicati on ID: [id number] D uration Value: 120 Prescri bed By [...] Updated DateTime 02/07/2024 154.94 cm 23.6 kg/m2 63257.05 g Reji Mtz [facility] 02/07/2024 10:32:32 Date Recorded Body height Body mass index (BMI) Body weight Provider Name and Address Organization Details Last Updated DateTime 04/13/2024 154.94 cm 23.6 kg/m2 62908.05 g Francoise Burgos [facility] 04/13/2024 09:16:54 Social History None recorded. Functional Status None recorded. Mental Status None recorded. Family History Nothing Reported. Medical History No medical history recorded. Gynecological HistoryNo gynecological history recorded. Obstetrics History GPAL:G 0 P 0 0 0 0 Past Encounters Encounter ID Performer Location Encounter Start Date Encounter Closed Date Diagnosis/Indication Diagnosis SNOMED-CT Code Diagnosis ICD10 Code Diagnosis Note [id number] YANDY PERRIN MD [facility] [address] [address] 02/07/2024 10:14:01 02/07/2024 10:42:12 Examination of ear 681569596 Z01.10 [id number] JESUS MCELROY MD [facility] [address] [address] 04/13/2024 09:12:22 04/13/2024 09:40:00 Nasal mucosa dry 01056887 J34.89 73-year-ol d female presents today for irritation in her left nasal cavity. There is a mild anterior septal deviation to the left. There is a prominent vessel and some dry nasal mucosa without any ulcerative or friable lesion. She has some success with saline. I recommend using a nasal gel. We reviewed some other moisturizi ng products which she might find helpful. Follow-up if symptoms do not resolve and otherwise she is scheduled for ear cleaning in August. Health Concerns Section Related Observation LastModified by Organization Detai ls LastModified Time None Recorded Concern Status LastModified by Organization Details LastModified Time None Recorded Advance Directives Directive None Recorded Payers Encounter Date Sequence Insurance Name Policy Number Policy Sullivan Covered Member ID Sullivan Member ID Guarantor Name 02/07/2024 1 MEDICARE B-[place]: [facility] Damari Kumar [facility] [id number] Damari Kumar [facility] 02/07/2024 2 [place] [facility] Damari Kumar [facility] [id number] Damari Kumar [facility] 04/13/2024 1 MEDICARE [place]: [id number] Damari [facility] 04/13/2024 2 [place] [facility] Damari [facility] [id number] [facility] Notes Date Note Type Note Provider Name and Address Organization Details Recorded Time 02/07/2024 text/html 73 year old female presents for ear cleaning. She denies otalgia, otorrhea, changes in her hearing, and dizziness. She did not end up getting hearing aids last year and feels that her hearing is adequate for the most part. YANDY PERRIN MD [address] [place] [address], [phone], [facility] 02/07/2024 17:31:17 04/13/2024 text/html 73 yo F presents with some irritation left nasal septum; she has noted some white spot and irritation, airflow seems ok usually.Dr. Varma diagnosed her deviated septum many years ago.Saline helps. Usually seen for cerumen. JESUS MCELROY MD [address] [place] [address],[address], [phone], [facility] 04/13/2024 09:54:36 OBGyn Episode No OBEpisode recorded.
--- OUTSIDE RECORDS SUMMARY | 2024-07-12 13:01 | XMS_ITS ---
Author Organization [facility] Address [address] [place] [address] Care Team Providers Care Sealant Mixer Name Role Phone Saw Lora Unavailable [phone] REASON FOR VISIT cx 11/14/2023 appt Encounters Encounter Location Date Provider Diagnosis [address] [place] [address] 08/30/2023 Saw Lora Plan Of Treatment No Information Progress Notes * Jensen KOWALSKIblancaDOB:1950 ([age] yo F)Acc No.[id number]:08/30/2023 Patient:?Damari Kowalski :1950???Age:73 Y???Sex:Female Address:[address] [place] [address] [facility] [place] [address] * true * Date:? Generated for Shira juarez/Mac/eTransmitting on:?07/12/2024 01:00 PM EST
== END 2024-07-12 11:46 | disposition home or self-care (01) ==
PROVIDERS: PCP Internal Medicine; Visit Provider Internal Medicine
DX: K21.9 Gastro-esophageal reflux disease without esophagitis (principal); F31.9 Bipolar disorder, unspecified; G47.00 Insomnia, unspecified; E78.00 Pure hypercholesterolemia, unspecified; J45.20 Mild intermittent asthma, uncomplicated

== ENCOUNTER → 2024-07-12 10:46 | Outpatient (BNVA) | payer MEDICARE, MEDICAID, SELFPAY | PROVIDERS: PCP Internal Medicine; Visit Provider Internal Medicine | DX: K21.9 Gastro-esophageal reflux disease without esophagitis (principal); F31.9 Bipolar disorder, unspecified; G47.00 Insomnia, unspecified; E78.00 Pure hypercholesterolemia, unspecified; J45.20 Mild intermittent asthma, uncomplicated | CPT/HCPCS: 99212 ==

== ENCOUNTER 2024-07-30 09:13 | Outpatient (REF) | payer MEDICARE, MEDICAID, SELFPAY | END 2024-07-30 09:14 | disposition home or self-care (01) | LOC: HO.MAMMO 09:13 | PROVIDERS: Visit Provider Internal Medicine | DX: Z12.31 Encounter for screening mammogram for malignant neoplasm of breast (principal) | CPT/HCPCS: 77063; 77067 ==

== ENCOUNTER → 2024-07-30 09:45 | Outpatient (BNV) | payer MEDICARE, MEDICAID, SELFPAY | PROVIDERS: Visit Provider Internal Medicine | DX: Z12.31 Encounter for screening mammogram for malignant neoplasm of breast (principal) | CPT/HCPCS: 77063; 77067 ==

== ENCOUNTER 2024-08-22 11:18 | Outpatient (AMB) | payer MEDICARE, MEDICAID, SELFPAY ==
--- NOTE | 2024-08-22 11:24 | A.OFFPC_ITS ---
Vital Signs 08/22/24 11:26 Height 5 ft BMI Reason not done Patient refused/unable BP 110/72 Blood Pressure Location Lt brachial Position Sitting Pulse 50 Pulse Source Pulse Oximeter Temp 97.1 F Temp Source Temporal Artery Scan Pulse Oximetry (%) 99 Oxygen Delivery Method Room Air Intake Visit Reasons: Palpitations, shakiness Intake Note: Patient is here to follow up on Palpitation, shakiness, dizziness. 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: Not Required per policy Accompanied by: Self / Same As Patient Allergies alcohol [ALCOHOL] Allergy (Unknown, Verified 08/22/24 11:26) ON SKIN - HIVES , SWELLING gluten [GLUTEN] Allergy (Unknown, Verified 08/22/24 11:26) HIVES latex [LATEX] Allergy (Unknown, Verified 08/22/24 11:) HIVES,SWELLING mold Allergy (Unknown, Verified 08/22/24 11:26) HIVES yeast, dried [YEAST] Allergy (Unknown, Verified 08/22/24 11:26) HIVES cephalexin [From Keflex] Adverse Reaction (Intermediate, Verified 08/22/24 11:26) sleepy dairy Allergy (Mild, Uncoded 08/22/24 11:26) Hives smoked meat Allergy (Mild, Uncoded 08/22/24 11:26) Hives Medication List - Last Reconciled 08/22/24 by Marylu Garcia PA-C albuterol sulfate 90 mcg/actuation 2 puffs inhalation Q4-6H PRN 30 days cholecalciferol (vitamin D3) 25 mcg PO DAILY dicyclomine 20 mg PO QID 30 days egrqfb-tolibxlw-pmdrazb 6,000-19,000 -30,000 unit (Creon) 1 cap PO .TIDAC omeprazole 20 mg PO DAILY simethicone (Gas Relief (simethicone)) 180 mg PO BID PRN Tobacco use date assessed: 08/22/24 Fall risk assessment: No Falls in past year Last assessed Fall Risk: 08/22/24 Dental Screening Dental Screen Date: 07/12/24 HPI Palpitations, shakiness HPI Details 74-year-old female with past medical his tory of GERD, bipolar disorder, osteoporosis, hypercholesterolemia, insomnia, irritable bowel syndrome, asthma last seen by Dr. Strong 07/2024 coming in for acute problem. Presenting with increased anxiety and palpitations following an allergic reaction to Keflex and chronic management of eczema. She experienced significant anxiety and palpitations during a recent , exacerbated by an emotional context and stress. She describes the episode as heart pounding that lasted several minutes before resolving. She faces frequent sleep disturbances and ongoing management with Ambien, adjusting dosages due to sensitivity to medications. She also mentions having a headache has been severe over the last several days but resolved today. The recent Keflex gave her excessive amounts of diarrhea and patient is working to remain hydrated. She has not had episodes of diarrhea in the last several days. [facility] Medical History Osteopenia Upper respiratory infection Adult general medical exam Irritable bowel syndrome with both constipation and diarrhea Urethritis Asthma Restrictive lung disease Cough Screening for diabetes mellitus Low back pain Acute sinusitis Irritable bowel syndrome with constipation Tubular adenoma of colon Hx of osteopenia Lumbar disc disease Bronchitis with flu GERD (gastroesophageal reflux disease) PTSD (post-traumatic stress disorder) Panic disorder History of chronic rhinitis Fibrocystic breast disease Osteoarthritis Hx of irritable bowel syndrome Neurodermatitis Surgical History History of colonoscopy Hx of esophagogastroduodenoscopy Hx of tonsillectomy Hx of cholecystectomy H/O colonoscopy with polypectomy Family History Father Alcoholic Arthritis Mother Schizophrenia Heart failure Brother Hep C w/ coma, chronic Drug addict Cancer Other Mental health disorder Substance use disorder Social History Household Members: Friend(s) and None Housing: Other Alcohol intake: current Alcohol intake frequency: holidays/special occasions only Alcohol type: wine Patient Tobacco Use Status: Never used Tobacco Tobacco use type: Cigarette e-Cigarette/Vaping Use: Never Used Second Hand Smoke Exposure: No service: No Current occupational status: retired Cognitive needs: No Hearing needs: No Vision needs: No Questionnaire Thrive Questionnaire Date Thrive assessed: 07/12/24 MEENU-7 AMB Questionnaire MEENU-7 Date MEENU - 7 assessed: 07/12/24 Source: Developed by Drs. Diogenes Emanuel, Mercy Khalil, Raman Madsen and colleagues, with an educational lisa from [email or web address]. Review of Systems Const Denies body aches, Denies chills, Denies fever(s), Denies headache(s) and Denies poor appetite Eyes Reports no additional complaints ENT Denies dysphagia, Denies dizziness, Denies headache(s) and Denies odynophagia Card Denies chest pain, Denies syncope, Denies edema, Denies irregular heart rhythm, Denies lightheadedness and Denies dyspnea Resp Denies cough and Denies dyspnea GI Denies abdominal pain, Denies constipation, Denies dysphagia, Denies diarrhea, Denies nausea, Denies odynophagia and Denies vomiting Reports no additional complaints Musc Reports no additional complaints and Denies abnormal gait Skin/Breast Reports system reviewed and no additional complaints, except as documented Neuro Denies abnormal gait, Denies dizziness, Denies syncope and Denies headache(s) Psych Reports no additional complaints Physical exam (Primary Care) Vital Signs: Last Vital Signs Temp 97.1 F 08/22/24 11:26 Pulse 50 08/22/24 11:26 BP 110/72 08/22/24 11:26 Pulse Ox 99 08/22/24 11:26 Oxygen Delivery Method Room Air 08/22/24 11:26 Tobacco/Smoking Status: Tobacco use Status Tobacco use date assessed 08/22/24 08/22/24 11:35 Patient Tobacco Use Status Never used Tobacco 08/22/24 11:35 Tobacco use type Cigarette 08/22/24 11:35 e-Cigarette/Vaping Use Never Used 08/22/24 11:35 Thrive Assessment: Date of Thrive Assessment Date Thrive assessed 07/12/24 08/22/24 11:35 Const General: cooperative, healthy appearing, comfortable and no acute distress Orientation/consciousness: patient oriented x3 HENMT Head: Yes normocephalic Ears: hearing grossly normal bilaterally General nose exam: Normal external nose present Eyes General: appearance normal, both eyes and all related structures Conjunctivae: conjunctivae normal Neck Neck: Yes full ROM and Yes no lymphadenopathy Resp Effort & Inspection: normal respiratory effort Auscultation: clear to auscultation bilaterally, no crackles, no rales, no rhonchi and no wheezes Cardio Rate: regular rate Rhythm: regular rhythm Skin General skin exam: no rashes or lesions noted Neuro General: patient oriented x3 Gait exam (Neuro): Normal gait present Extrem General: Yes normal to inspection, Yes full ROM and No edema Psych Affect: normal affect Attitude: cooperative Insight: Good insight present (Psych) Judgement: Good judgement present (Psych) Coding Level of Care Code Est Pt Level 4 (79056) Diagnoses Headache R51.9 Palpitations R00.2 Anxiety F41.9 Insomnia G47.00 Assessment & Plan Assessment & Plan (1) Headache: Code(s): R51.9 - Headache, unspecified Category: Medical Plan: Patient mentions having a severe headache the last several days that resolved spontaneously today. I ordered blood work to rule out possible electrolyte abnormality or dehydration. Advised patient to continue to monitor symptoms and please reach out to the office if headache returns. Reviewed with patient red flag symptoms and when to present for re-evaluation. (2) Palpitations: Code(s): R00.2 - Palpitations Category: Medical Plan: I have outlined a plan to manage the patient's exacerbated anxiety and palpitations by ordering blood work to rule out electrolyte imbalances, and a Holter monitor to investigate cardiac issues. (3) Anxiety: Code(s): F41.9 - Anxiety disorder, unspecified Category: Medical Plan: Hydroxyzine was offered for anxiety, while understanding her medication sensitivity. A psychiatrist consultation is suggested to evaluate significant anxiety concerns further. (4) Insomnia: Code(s): G47.00 - Insomnia, unspecified Category: Medical Plan: Patient having worsening insomnia due to anxiety over the last several weeks. Refills sent for her Ambien. Plan This note was constructed using voice recognition software. While every effort has been made to ensure accuracy and radiology nurse, still areas may have been included sometimes these areas may affect the content or meeting of the given symptoms. Total time spent caring for the patient today was 20 minutes. This includes time spent before the visit reviewing the chart, time spent during the visit, and time spent after the visit and documentation. Patient was informed and verbally consented to the use of an ambient scribe for clinic note documentation during this visit. Orders: Orders Complete Blood Count Auto Diff Today R51.9 - Headache, unspecified TSH reflex Free T4 Today R51.9 - Headache, unspecified, Z00.00 - Encounter for general adult medical examination without abnormal findings Comprehensive Met. Panel Today R51.9 - Headache, unspecified Erythrocyte Sedimentation Rate Today R51.9 - Headache, unspecified C Reactive Protein Today R51.9 - Headache, unspecified UA CC w/rflx Micro + Cult Today R31.9 - Hematuria, unspecified ECG 3 day holter monitor Today R00.2 - Palpitations Referrals Psychiatry Outpatient Consultation Service F31.9 - Bipolar disorder, unspecified, F41.9 - Anxiety disorder, unspecified Medications: Refilled zolpidem 5 mg PO BEDTIME PRN 10 tabs 0RF Sleep
[2024-08-22 11:26] VITALS: BP 110/72; PULSE 50; TEMP 36.2; O2SAT 99
--- OUTSIDE RECORDS SUMMARY | 2024-08-22 13:44 | XMS_ITS | Patient Health Record ---
[facility] Address [address] [place] [address] Care Team Providers Care Field Captain Name Role Phone Saw Lora Unavailable [phone] Reason For Referral No Information Encounters Encounter Location Date Provider [facility] [address] 08/30/2023 Saw Lora Plan Of Treatment No Information Insurance Providers Payer Name Payer Address Payer Phone Subscriber Number Group Number Insured Name Patient Relationship to Insured Coverage Start Date Coverage End Date [facility] [employer] Claims [address] [place] [id number] Damari Campos Self - patient is the insured
--- OUTSIDE RECORDS SUMMARY | 2024-08-22 13:44 | XMS_ITS ---
Author Organization [facility] Address [address] [place] [address] Care Team Providers Care Psychiatry Instructor Name Role Phone Saw Lora Unavailable [phone] Encounters Encounter Location Date Provider Diagnosis [facility] [address] [facility] [address] [place] [address] 11/14/2023 Saw Lora Plan Of Treatment No Information Progress Notes * Damari KOWALSKIDOB:1950 ([age] yo F)Acc No.[id number]:11/14/2023 Progress Notes Patient:?Damari KOWALSKI Provider:?Saw Lora DPM :1950???Age:73 Y???Sex:Female D ate:11/14/2023 Address:[address] [place] [address] Subjective: * Chief Complaints: * ??? * Medical History:? Objective: * Vitals:? Assessment: Plan: * Treatment: * Images: * The named appointment provid er may or may not be the originator of this progress note, and it is not deemed complete until electronically signed by the appointment provider. Sign off status: Pending * Provider:?Saw Lora DPM Date:?2023 Generated for Shira juarez/Mac/Xiomara on:?08/22/2024 01:43 PM EDT
--- OUTSIDE RECORDS SUMMARY | 2024-08-22 13:44 | XMS_ITS ---
Author Organization [facility] Address [address] [place] [phone] Care Team Providers Care Neurology Director Name Role Phone Saw Lora Unavailable [phone] REASON FOR VISIT cx 11/14/2023 appt Encounters Encounter Location Date Provider Diagnosis [address] [place] [address] 08/30/2023 Saw Lora Plan Of Treatment No Information Progress Notes * Jensen KOWALSKIblancaDOB:1950 ([age] yo F)Acc No.[id number]:08/30/2023 Patient:?Damari Kowalski :1950???Age:73 Y???Sex:Female Address:[address] [place] [address] [place] [address] * true * Date:? Generated for Shira juarez/Mac/eTransmitting on:?08/22/2024 01:44 PM EDT
--- OUTSIDE RECORDS SUMMARY | 2024-08-22 13:44 | XMS_ITS ---
Author Organization 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 Generated for Shira juarez/Mac/eTransmitting on:?08/22/2024 01:44 PM EDT
== END 2024-08-22 12:15 | disposition home or self-care (01) ==
LOC: HO.HMCH 11:18
PROVIDERS: PCP Internal Medicine
DX: R51.9 Headache, unspecified (principal); R00.2 Palpitations; F41.9 Anxiety disorder, unspecified; G47.00 Insomnia, unspecified

== ENCOUNTER → 2024-08-22 11:18 | Outpatient (BNVA) | payer MEDICARE, MEDICAID, SELFPAY | PROVIDERS: PCP Internal Medicine | DX: R51.9 Headache, unspecified (principal); R00.2 Palpitations; F41.9 Anxiety disorder, unspecified; G47.00 Insomnia, unspecified | CPT/HCPCS: 99212 ==

== ENCOUNTER 2024-08-30 12:13 | Outpatient (AMB) | payer MEDICARE, MEDICAID, SELFPAY ==
[2024-08-30 12:15] VITALS: BP 148/66; PULSE 56; O2SAT 97
--- NOTE | 2024-08-30 12:15 | A.OFFVIS_ITS ---
Vital Signs 08/30/24 12:15 Height 5 ft BMI Reason not done Patient refused/unable BP 148/66 H Blood Pressure Location Lt brachial Position Sitting Pulse 56 Pulse Source Pulse Oximeter Pulse Oximetry (%) 97 Oxygen Delivery Method Room Air Intake Visit Reasons: Follow up diarrhea Intake Note: ESTABLISHED PATIENT for GERD + IBS mgmt. Chief Complaint; Pt unable to recall medications very well. Pt does confirm that she is still taking omeprazole occasionally as well as dicyclomine PRN. Pt is not taking linzess due to frequent IBS episodes with diarrhea/loose stools. Accounts Payable Supervisor Required: No Accompanied by: Self / Same As Patient Allergies alcohol [ALCOHOL] Allergy (Unknown, Verified 08/30/24 12:39) ON SKIN - HIVES , SWELLING gluten [GLUTEN] Allergy (Unknown, Verified 08/30/24 12:39) HIVES lactose Allergy (Unknown, Verified 08/30/24 12:39) Rash latex [LATEX] Allergy (Unknown, Verified 08/30/24 12:39) HIVES,SWELLING mold Allergy (Unknown, Verified 08/30/24 12:39) HIVES yeast, dried [YEAST] Allergy (Unknown, Verified 08/30/24 12:39) HIVES cephalexin [From Keflex] Adverse Reaction (Intermediate, Verified 08/30/24 12:39) sleepy smoked meat Allergy (Mild, Uncoded 08/30/24 12:39) Hives HPI HPI Follow up diarrhea: Details: Assessment & Plan (1) Irritable bowel syndrome with constipation: Code(s): K58.1 - Irritable bowel syndrome with constipation Category: Medical (2) GERD (gastroesophageal reflux disease): Code(s): K21.9 - Gastro-esophageal reflux disease without esophagitis Category: Medical Qualifiers: Esophagitis presence: without esophagitis Qualified Code(s): K21.9 - Gastro-esophageal reflux disease without esophagitis (3) Tubular adenoma of colon: Comment: Last scope 2019 repeat in 5 years or 2024 aeb Code(s): D12.6 - Benign neoplasm of colon, unspecified Category: Medical (4) Palpitations: Code(s): R00.2 - Palpitations Category: Medical Plan VERY HIGH ANXIETY X 2 DAYS, having palpitations and chest discomfort, HTN up. Does not want to do colonoscopy had bad experience with last EGD and with her IBS more active with anxiety she does not want to prep. Will do cologuard. Also will get EKG. Reviewed bloodwork and looks ok. However, the mildly elevated AST may point to self treating her anxiety with alcohol. She does have dicyclomine to help when her anxiety drives her IBS. She continues on her omeprazole once a day and her simethicone as well. ROV 6 mos. Orders: Orders ECG 12 lead EKG 03/16/24 R00.2 - Palpitations Medications: Refilled dicyclomine 20 mg PO QID 120 tabs 3RF 30 days K58.1 - Irritable bowel syndrome with constipation omeprazole 20 mg PO DAILY 30 caps 6RF nxpbdb-eqysbjjw-wifkcqj 6,000-19,000 -30,000 unit (Creon) do not exceed 10,000 unit/kg lipase per 24 hrs 1 cap PO .TIDAC 90 caps 6RF K58.2 - Mixed irritable bowel syndrome EKG 03/16/24 cc: Shagufta Lee ANP-C~ Test Reason : PALPITATIONS Blood Pressure : / mmHG Vent. Rate : 055 BPM Atrial Rate : 055 BPM P-R Int : 158 ms QRS Dur : 074 ms QT Int : 416 ms P-R-T Axes : 010 012 033 degrees QTc Int : 397 ms Sinus bradycardia Otherwise normal ECG When compared with ECG of 04-JUL-2015 08:05, No significant change was found Correspondence On 08/23/24 @ 10:18 Shagufta Lee Wrote To JesusShagufta (3) Ok that's just.....a lot. See if you can get her in to see me somewhere, just not on a Tuesday as she will be a complex visit. On 08/23/24 @ 09:45 Viola Richards Wrote To JesusShagufta spoke w/ patient. patient states approximately 2 weeks ago she was started on a 5 day course of keflex. patient states that the episode of diarrhea started shortly after this and she was only able to do 3 out of the 5 days. patient states the episodes feel as if she took a prep for a colonocopy with how she is going. patient states the antibiotic was binding her up. patient states shortly after that she took prune juice and had the above reaction with the diarrhea. patient states that she saw PCP office yesterday, they are having her do some t esting due to chest pains and c/o shakiness in her hands. patient states feeling lousy and states she does not just want to keep taking immodium. patient states if she drinks too much water then it makes her go. patient does not have any cramping and she is not taking anything after her reaction because she is afraid it will make it worse. It sounds like patient is under a lot of stress as when I mentioned the stool test she stated that she already has a lot of testing going on and she doesn't know if she will be able to do a stool test right now. patient states this started 2-3 weeks ago where she had one episode and now today. patient reports she is either severely constipated or having episodes of diarrhea but they are not constant throughout the day. On 08/23/24 @ 09:19 Shagufta Lee Wrote To JesusShagufta (2) I am ordering stool samples just in case this is infectious. Ask her if she is taking her dicyclomine as she generally has worse diarrhea when she is anxious. Jamie can you triage this further for me as well? On 08/23/24 @ 08:43 Amarilis Frausto Wrote To JessuShagufta (2) patient called and said is feeling awful bad diarrhea. anything we can do before her appt? TODAY'S VISIT She is due for repeat colonoscopy screening this year; however she flately refuses to consider this. We also discussed COloguard, but she feels she can not predict her BM's right now to do this. She has been very stressed recently, she had an episode of severe watery diarrhea for a couple of days. It seems to have been preceded by an episode of severe shaking and palpitations when she ws attending a friends . This was very emotional for her, and she says I have been crying all week after losing the father (the Becker). She has also had some CIC, but is using [employer] Imodium when she has these episodes (this has happened twice). She has had additional labs ordered by her PCP as well as a holter monitor for her sx. Her EGD that I ordered was ok just sinus rojelio - but t his does not rule out various transient arrythmias. She does not like the idea of a holter, but I try to educate her and talk her in to it. SHe is trying to drink a lot of water and sing to relieve her stress. GIven her anxiety and her recently health/bowel challenges I think she needs to calm down, do a light diet, and hydrate and let her body settle down. We will discuss COloguard in 6 mos. She is very worried about variability in her BP's - she thinks using beet juice helps with this. I encourage her to do the labs ordered by her PCP. I cancel the GI series order since her diarrhea is resolving ROV 3 mos. [facility] Medical History Annual wellness visit Osteopenia Upper respiratory infection Adult general medical exam Irritable bowel syndrome with both constipation and diarrhea Urethritis Asthma Restrictive lung disease Cough Screening for diabetes mellitus Low back pain Acute sinusitis Irritable bowel syndrome with constipation Tubular adenoma of colon Hx of osteopenia Lumbar disc disease Bronchitis with flu GERD (gastroesophageal reflux disease) PTSD (post-traumatic stress disorder) Panic disorder History of chronic rhinitis Fibrocystic breast disease Osteoarthritis Hx of irritable bowel syndrome Neurodermatitis Surgical History History of colonoscopy Hx of esophagogastroduodenoscopy Hx of tonsillectomy Hx of cholecystectomy H/O colonoscopy with polypectomy Family History Father Alcoholic Arthritis Mother Schizophrenia Heart failure Brother Hep C w/ coma, chronic Drug addict Cancer Other Mental health disorder Substance use disorder Social History Household Members: Friend(s) and None Housing: Other Alcohol intake: current Alcohol intake frequency: holidays/special occasions only Alcohol type: wine Patient Tobacco Use Status: Never used Tobacco Tobacco use type: Cigarette e-Cigarette/Vaping Use: Never Used Second Hand Smoke Exposure: No service: No Current occupational status: retired Cognitive needs: No Hearing needs: No Vision needs: No Review of Systems Const Denies fatigue, Denies fever(s), Reports lethargy, Denies night sweats, Denies poor appetite and Denies weight loss ENT Reports Normal hearing present, Denies dental pain, Denies dysphagia, Reports dizziness, Denies hearing loss, Denies mouth pain, Denies odynophagia, Denies throat swelling, Denies tongue swelling and Reports other (Dentition adequate) Card Reports rapid heart rate and Reports palpitations Resp Reports cough GI Details: Reports abdominal pain, Denies melena, Denies bloating, Denies hematochezia, Reports constipation, Denies GI cramping, Denies dysphagia, Denies excessive flatus, Denies early satiety, Reports heartburn, Reports diarrhea, Denies nausea, Denies odynophagia, Denies vomiting and Denies hematemesis Skin/Breast Denies pruritus, Denies lesions, Denies rash and Denies jaundice Neuro Reports Normal hearing present, Denies Abnormal speech present and Reports dizziness Endo Denies fatigue and Reports palpitations Aller/Immun Denies throat swelling and Denies tongue swelling Physical Exam Vital Signs: Last Vital Signs Pulse 56 08/30/24 12:15 BP 148/66 H 08/30/24 12:15 Pulse Ox 97 08/30/24 12:15 Oxygen Delivery Method Room Air 08/30/24 12:15 Const General: cooperative, no acute distress, well developed and well groomed Nutritional Appearance: average body habitus and well nourished Orientation/consciousness: oriented to person, oriented to place and oriented to time Limitations: No language barrier HEENT Head: Yes normocephalic and Yes atraumatic Eyes General: appearance normal, both eyes and all related structures Pupils: Equal, round and reactive pupils present Neck Neck: Yes normal visual inspection and Yes no lymphadenopathy Thyroid: Thyroid normal Resp Effort & Inspection: normal respiratory effort and able to speak in complete sentences Auscultation: clear to auscultation bilaterally Cardio Rate: regular rate Rhythm: regular rhythm Heart sounds: Normal, physiologic split S2 sound present Peripheral pulses: radial pulses present and posterior tibial pulses present GI Inspection: No distended and No Abdominal panniculus present Palpation (GI): Soft to palpation, nontender, no guarding, not rigid and No hepatosplenomegaly present Percussion: Yes normal to percussion Auscultation: normal bowel sounds Rectal Exam - Female: deferred Skin General skin exam: no rashes or lesions noted, turgor normal, skin not dry, no jaundice, No spider nevi and no striae Rashes: no rashes Nails: normal Neuro General: oriented to person, oriented to place and oriented to time Cranial nerves: Yes Equal, round and reactive pupils present and Yes Normal hearing present Speech: No Abnormal speech present Extrem General: Yes normal to inspection, No clubbing, No cyanosis and No edema Psych Appearance: grossly normal and well kempt Mental Status: mental status grossly normal Speech and movement: Pressured speech present Affect: Animated affect present and Anxious affect present Attitude: cooperative Thought process: not confabulating, Tangential thought process present and Racing thoughts present Thought content: Normal thought content present Insight: Limited insight present (Psych) Judgement: Limited judgement present (Psych) Assessment & Plan Assessment & Plan (1) Acute diarrhea: Code(s): R19.7 - Diarrhea, unspecified Category: Medical (2) Anxiety: Code(s): F41.9 - Anxiety disorder, unspecified Category: Medical (3) Palpitations: Code(s): R00.2 - Palpitations Category: Medical (4) Irritable bowel syndrome with constipation: Code(s): K58.1 - Irritable bowel syndrome with constipation Category: Medical (5) GERD (gastroesophageal reflux disease): Code(s): K21.9 - Gastro-esophageal reflux disease without esophagitis Category: Medical Qualifiers: Esophagitis presence: without esophagitis Qualified Code(s): K21.9 - Gastro-esophageal reflux disease without esophagitis Plan She is due for repeat colonoscopy screening this year; however she flately refuses to consider this. We also discussed COloguard, but she feels she can not predict her BM's right now to do this. She has been very stressed recently, she had an episode of severe watery diarrhea for a couple of days. It seems to have been preceded by an episode of severe shaking and palpitations when she ws attending a friends . This was very emotional for her, and she says I have been crying all week after losi ng the father (the Becker). She has also had some CIC, but is using [employer] Imodium when she has these episodes (this has happened twice). She has had additional labs ordered by her PCP as well as a holter monitor for her sx. Her EGD that I ordered was ok just sinus rojelio - but t his does not rule out various transient arrythmias. She does not like the idea of a holter, but I try to educate her and talk her in to it. SHe is trying to drink a lot of water and sing to relieve her stress. GIven her anxiety and her recently health/bowel challenges I think she needs to calm down, do a light diet, and hydrate and let her body settle down. We will discuss COloguard in 6 mos. She is very worried about variability in her BP's - she thinks using beet juice helps with this. I encourage her to do the labs ordered by her PCP. I cancel the GI series order since her diarrhea is resolving ROV 3 mos. Medications: Changed From simethicone (Gas Relief (simethicone)) 180 mg PO BID PRN To simethicone (Gas Relief (simethicone)) 180 mg PO BID 120 caps 12RF Refilled omeprazole 20 mg PO DAILY 30 caps 6RF dicyclomine 20 mg PO QID 120 tabs 3RF 30 days K58.1 - Irritable bowel syndrome with constipation wvjhnl-pcpbnuxm-rlqpyxl 6,000-19,000 -30,000 unit (Creon) do not exceed 10,000 unit/kg lipase per 24 hrs 1 cap PO .TIDAC 90 caps 6RF K58.2 - Mixed irritable bowel syndrome Coding Level of Care Code Est Pt Level 4 (04394) Diagnoses Acute diarrhea R19.7 Anxiety F41.9 Palpitations R00.2 Irritable bowel syndrome with constipation K58.1 Gastroesophageal reflux disease without esophagitis K21.9 Esophagitis presence: without esophagitis Time Spent (min) 38
--- OUTSIDE RECORDS SUMMARY | 2024-08-30 14:30 | XMS_ITS ---
Author Organization [facility] Address [address] [place] [phone] Care Team Providers Care Manager Mall Name Role Phone Saw Lora Unavailable [phone] Encounters Encounter Location Date Provider Diagnosis [facility] [address] [facility] [address] [place] [id number] 11/14/2023 Saw Lora Plan Of Treatment No Information Progress Notes * Damari KOWALSKIDOB:1950 ([age] yo F)Acc No.[id number]:11/14/2023 Progress Notes Patient:?Damari KOWALSKI Provider:?Saw Lora DPM :1950???Age:73 Y???Sex:Female D ate:11/14/2023 Address:[address] [place] [address] Subjective: * Chief Complaints: * ??? * Medical History:? Objective: * Vitals:? Assessment: Plan: * Treatment: * Images: * The named appointment provid er may or may not be the originator of this progress note, and it is not deemed complete until electronically signed by the appointment provider. Sign off status: Pending * Provider:?Saw Lora DPM Date:?2023 Generated for Shira juarez/Mac/Xiomara on:?08/30/2024 02:30 PM EDT
--- OUTSIDE RECORDS SUMMARY | 2024-08-30 14:31 | XMS_ITS ---
Author Organization [facility] Address [address] [place] [address] Care Team Providers Care Infant Room Teacher Name Role Phone Saw Lora Unavailable [phone] REASON FOR VISIT cx 11/14/2023 appt Encounters Encounter Location Date Provider Diagnosis [address] [place] [address] 08/30/2023 Saw Lora Plan Of Treatment No Information Progress Notes * Jensen KOWALSKIblancaDOB:1950 ([age] yo F)Acc No.[id number]:08/30/2023 Patient:?Damari Kowalski :1950???Age:73 Y???Sex:Female Address:[address] [place] [address] [facility] [place] [address] * true * Date:? Generated for Shira juarez/Mac/eTransmitting on:?08/30/2024 02:31 PM EDT
--- OUTSIDE RECORDS SUMMARY | 2024-08-30 14:31 | XMS_ITS | Data Portability ---
Author Organization [place] [facility], [facility] Address [address] [place] [address] Care Team Providers Care Vocational Director Name Role Phone ANGEL GREEN Primary Care [...] Organization Details Last Modified Time Details Appointments Hearing Test 2024 11:00A M Hearing Test Not available Not available Not available Establish ed 15 2024 11:30A M AKASH BAILEY PA-C Not available Not [...] Sensorine ural hearing loss of bilateral ears 995741276 Active 2015 Sensorine ural hearing loss, bilateral ; Note: Date Diagnosed : 05/23/2015 11:11 AM (H90.3) Not Available [facility] 4 03:00:05 Bilateral tinnitus 33288304605 02 Active 2022 Tinnitus, bilateral ; Note: Date Diagnosed : 07/22/2022 5:07 PM (H93.13) Not Available [facility] 4 03:00:07 Headache 75558680 Active 2015 Headache; Note: Date Diagnosed : 07/21/2015 1:50 PM (R51) Not Available [facility] 4 03:00:06 Disorder of left Eustachia n tube 84326555185 68197 Active 2021 Other specified disorders of Eustachia n tube, left ear; Note: Date Diagnosed : 05/14/2021 11:36 AM (H69.82) Not Available [facility] 4 03:00:08 Impacted cerumen in right ear 84584773494 23480 Active 2016 Impacted cerumen, right ear; Note: Date Diagnosed : 10/12/2016 12:13 PM (H61.21) Note: Date Diagnosed : 10/12/2016 12:13 PM (H61.21) Not Available [facility] 4 01:13:23 Allergic rhinitis 46403926 Active 2021 Other allergic rhinitis; Note: Date Diagnosed : 05/14/2021 11:31 AM (J30.89) Not Available [facility] 4 03:00:05 Temporoma ndibular joint disorder 49106148 Active 2015 Other specified disorders of temporoma ndibular joint; Note: Date Diagnosed : 08/14/2015 12:10 PM (M26.69) Not Available [facility] 4 03:00:08 Examinati on of ear Active 2022 Encounter for examinati on of ears and hearing without abnormal findings; Note: Date Diagnosed : 01/25/2023 11:56 AM (Z01.10) Not Available [facility] 4 03:00:08 Posterior rhinorrhe a 00325998 Active 2017 Postnasal drip; Note: Date Diagnosed : 08/02/2017 11:16 AM (R09.82) Not Available [facility] 4 03:00:06 Impacted cerumen of bilateral ears 94094096383 01762 Active 2015 Impacted cerumen, bilateral ; Note: Date Diagnosed : 01/29/2016 12:19 PM (H61.23) Not Available [facility] 4 03:00:07 Chronic disease of tonsils AND/OR adenoids 59478418 Active 2017 Tonsillar tag; Location: right Not e: Date Diagnosed : 08/02/2017 11:16 AM (J35.8) Not Available [facility] 4 03:00:05 Impacted cerumen 95865428 Active 2014 Impacted cerumen; Note: Date Diagnosed : 07/17/2014 2:40 PM (380.4) Not Available [facility] 4 03:00:07 Ulcerativ e rhinitis 86173585 Active 2023 JESUS MCELROY MD [address] [facility],[place] [address], Liu cavazos, J[place]É, [phone] , [facility] - [facility] 4 09:52:39 Nasal mucosa dry 57737140 Active 2023 JESUS MCELROY MD [address] [place] [address],[place] [address], Liu cavazos, J[place]É, [address] , [facility] - [facility] 4 09:53:39 Problem Notes None recorded. Medical Equipment None Reported. Allergies No known drug allergies Medications Name Sig Start Date Stop Date Status Note LastModified by Organization Details LastModified Time tizanidin e 4 mg tablet 10/21 completed Medicati on ID: [id number] D uration Value: 30 Reason: () Brand Name: tizanidi ne Send Method: E-Prescr ibed Sub s Allowed: subs OK Speci al Instruct ion: take 1 tablet by mouth three times a day Medi cationGe nericNam e: tizanidi ne Not Available Not Available Not Available famotidin e 40 mg tablet 04/13 completed Medicati on ID: [id number] D uration Value: 30 Brand Name: famotidi [...] mg tablet 10/21 completed Medicati on ID: [id number] D uration Value: 30 Reason: () Brand [...] topical cream 04/13 completed Medicati on ID: [id number] D uration Value: 30 Brand Name: mometaso ne Send Method: E-Prescr ibed Sub s Allowed: subs OK Medic ationGen ericName : mometaso ne Not Available Not Available Not Available Flonase Allergy Relief 50 mcg/actua tion nasal spray,yen pension 2 puff into both nostrils 04/13 completed Medicati on ID: [id number] D uration Value: 120 Prescri bed By [...] Updated DateTime 02/07/2024 154.94 cm 23.6 kg/m2 08652.05 g Reji Mtz [facility] 02/07/2024 10:32:32 Date Recorded Body height Body mass index (BMI) Body weight Provider Name and Address Organization Details Last Updated DateTime 04/13/2024 154.94 cm 23.6 kg/m2 13290.05 g Francoise Burgos [facility] 04/13/2024 09:16:54 Social History None recorded. Functional Status None recorded. Mental Status None recorded. Family History Nothing Reported. Medical History No medical history recorded. Gynecological HistoryNo gynecological history recorded. Obstetrics History GPAL:G 0 P 0 0 0 0 Past Encounters Encounter ID Performer Location Encounter Start Date Encounter Closed Date Diagnosis/Indication Diagnosis SNOMED-CT Code Diagnosis ICD10 Code Diagnosis Note [id number] YANDY PERRIN MD [facility] [address] [address] 02/07/2024 10:14:01 02/07/2024 10:42:12 Examination of ear 561926007 Z01.10 [id number] EJSUS MCELROY MD [facility] [address] [address] 04/13/2024 09:12:22 04/13/2024 09:40:00 Nasal mucosa dry 98725167 J34.89 73-year-ol d female presents today for [...] ID Guarantor Name 02/07/2024 1 MEDICARE B-[place]: [facility] Damari Kumar [facility] [id number] Damari Kumar [facility] 02/07/2024 2 MEDICAID-[facility]: [facility] Damari Kumar [facility] [id number] Damari Kumar [facility] 04/13/2024 1 MEDICARE B-MA: [facility] [id number] Damari [facility] 04/13/2024 2 MEDICAID-[place]: [facility] Damari [facility] [id number] [facility] Notes Date Note Type Note Provider Name and Address Organization Details Recorded Time 02/07/2024 text/html 73 year old female presents for ear cleaning. She denies otalgia, otorrhea, changes in her hearing, and dizziness. She did not end up getting hearing aids last year and feels that her hearing is adequate for the most part. YANDY PERRIN MD [address] [place] [address], [phone], [facility] 02/07/2024 17:31:17 04/13/2024 text/html 73 yo F presents with some irritation left nasal septum; she has noted some white spot and irritation, airflow seems ok usually.Dr. Varma diagnosed her deviated septum many years ago.Saline helps. Usually seen for cerumen. JESUS MCELROY MD [address] [place] [address],[address], [address], [facility] 04/13/2024 09:54:36 OBGyn Episode No OBEpisode recorded.
--- OUTSIDE RECORDS SUMMARY | 2024-08-30 14:31 | XMS_ITS ---
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 Generated for Shira juarez/Mac/eTransmitting on:?08/30/2024 02:31 PM EDT
--- OUTSIDE RECORDS SUMMARY | 2024-08-30 14:31 | XMS_ITS | Patient Health Record ---
Author Organization [facility] Prema Luley Address [address] [place] [address] Care Team Providers Care Porcelain Buildup Assistant Name Role Phone Saw Lora Unavailable [phone] Reason For Referral No Information Plan Of Treatment No Information Insurance Providers Payer Name Payer Address Payer Phone Subscriber Number Group Number Insured Name Patient Relationship to Insured Coverage Start Date Coverage End Date [facility] [employer] Claims [address] [place] [id number] Damari Campos Self - patient is the insured
== END 2024-08-30 13:36 | disposition home or self-care (01) ==
LOC: HO.HGI 12:13
PROVIDERS: PCP Internal Medicine; Visit Provider Nurse Practitioner
DX: R19.7 Diarrhea, unspecified (principal); F41.9 Anxiety disorder, unspecified; R00.2 Palpitations; K58.1 Irritable bowel syndrome with constipation; K21.9 Gastro-esophageal reflux disease without esophagitis
CPT/HCPCS: 99214

== ENCOUNTER → 2024-08-30 12:13 | Outpatient (BNVA) | payer MEDICARE, MEDICAID, SELFPAY | PROVIDERS: PCP Internal Medicine; Visit Provider Nurse Practitioner | DX: K21.9 Gastro-esophageal reflux disease without esophagitis (principal); K58.2 Mixed irritable bowel syndrome; D12.6 Benign neoplasm of colon, unspecified; R00.2 Palpitations; F41.9 Anxiety disorder, unspecified | CPT/HCPCS: 99212 ==

== ENCOUNTER 2024-09-17 11:38 | Outpatient (REF) | payer MEDICARE, MEDICAID, SELFPAY ==
[2024-09-17 11:58] LABS: MANUAL DIFF FLAG NO
--- OUTSIDE RECORDS SUMMARY | 2024-09-17 12:25 | XMS_ITS ---
Author Organization [facility] Address [address] [place] [address] Care Team Providers Care Multi Craft Maintenance Technician Name Role Phone Saw Lora Unavailable [phone] REASON FOR VISIT TRAUMA DOCTOR Encounters Encounter Location Date Provider Diagnosis [facility] [address] [place] [address] 08/19/2023 Saw Lora Plan Of Treatment No Information Progress Notes * Damari KOWALSKIDOB:1950 ([age] yo F)Acc No.[id number]:08/19/2023 Patient:?Damari Kowalski :1950???Age:73 Y???Sex:Female Address:[address] [place], [place] [address] [address] * true * Date:? Generated for Shira juarez/Mac/eTransmitting on:?09/17/2024 12:25 PM EDT
--- OUTSIDE RECORDS SUMMARY | 2024-09-17 12:25 | XMS_ITS ---
Author Organization [facility] Address [address] [place] [address] Care Team Providers Care Light Armored Reconnaissance Officer Name Role Phone Saw Lora Unavailable [phone] Encounters Encounter Location Date Provider Diagnosis [facility] [address] [facility] [address] [place] [address] 11/14/2023 Saw Lora Plan Of Treatment No Information Progress Notes * Damari KOWALSKIDOB:1950 ([age] yo F)Acc No.[id number]:11/14/2023 Progress Notes Patient:?Damari KOWALSKI Provider:?Saw Lora DPM :1950???Age:73 Y???Sex:Female D ate:11/14/2023 Address:[address] [place] [address] Subjective: * Chief Complaints: * ??? * Medical History:? Objective: * Vitals:? Assessment: Plan: * Treatment: * Images: * The named appointment provid er may or may not be the originator of this progress note, and it is not deemed complete until electronically signed by the appointment provider. Sign off status: Pending * Provider:?Saw Lora DPM Date:?2023 Generated for Shira juarez/Mac/Kwabenaitting on:?09/17/2024 12:24 PM EDT
--- OUTSIDE RECORDS SUMMARY | 2024-09-17 12:25 | XMS_ITS ---
Author Organization [facility] Address [address] [place] [address] Care Team Providers Care Leaded Glass Installer Name Role Phone Saw Lora Unavailable [phone] REASON FOR VISIT cx 11/14/2023 appt Encounters Encounter Location Date Provider Diagnosis [address] [place] [address] 08/30/2023 Saw Lora Plan Of Treatment No Information Progress Notes * Jensen KOWALSKIblancaDOB:1950 ([age] yo F)Acc No.[id number]:08/30/2023 Patient:?Damari Kowalski :1950???Age:73 Y???Sex:Female Address:[address] [place] [address] [place] [address] * true * Date:? Generated for Shira juarez/Mac/eTransmitting on:?09/17/2024 12:25 PM EDT
--- OUTSIDE RECORDS SUMMARY | 2024-09-17 12:25 | XMS_ITS | Data Portability ---
Author Organization [place] [facility] Address [address] [place] [address] Care Team Providers Care Data Warehouse Analyst Name Role Phone ANGEL GREEN Primary Care [...] Sensorine ural hearing loss of bilateral ears 752179551 Active 2015 Sensorine ural hearing loss, bilateral ; Note: Date Diagnosed : 05/23/2015 11:11 AM (H90.3) Not Available [facility] 4 03:00:05 Bilateral tinnitus 83364518116 02 Active 2022 Tinnitus, bilateral ; Note: Date Diagnosed : 07/22/2022 5:07 PM (H93.13) Not Available [facility] 4 03:00:07 Headache 42024916 Active 2015 Headache; Note: Date Diagnosed : 07/21/2015 1:50 PM (R51) Not Available [facility] 4 03:00:06 Disorder of left Eustachia n tube 52184542431 50269 Active 2021 Other specified disorders of Eustachia n tube, left ear; Note: Date Diagnosed : 05/14/2021 11:36 AM (H69.82) Not Available [facility] 4 03:00:08 Impacted cerumen in right ear 25517184347 35195 Active 2016 Impacted cerumen, right ear; Note: Date Diagnosed : 10/12/2016 12:13 PM (H61.21) Note: Date Diagnosed : 10/12/2016 12:13 PM (H61.21) Not Available [facility] 4 01:13:23 Allergic rhinitis 37921321 Active 2021 Other allergic rhinitis; Note: Date Diagnosed : 05/14/2021 11:31 AM (J30.89) Not Available [facility] 4 03:00:05 Temporoma ndibular joint disorder 20117984 Active 2015 Other specified disorders of temporoma ndibular joint; Note: Date Diagnosed : 08/14/2015 12:10 PM (M26.69) Not Available [facility] 4 03:00:08 Examinati on of ear Active 2022 Encounter for examinati on of ears and hearing without abnormal findings; Note: Date Diagnosed : 01/25/2023 11:56 AM (Z01.10) Not Available [facility] 4 03:00:08 Posterior rhinorrhe a 02789315 Active 2017 Postnasal drip; Note: Date Diagnosed : 08/02/2017 11:16 AM (R09.82) Not Available [facility] 4 03:00:06 Impacted cerumen of bilateral ears 22760514880 79689 Active 2015 Impacted cerumen, bilateral ; Note: Date Diagnosed : 01/29/2016 12:19 PM (H61.23) Not Available [facility] 4 03:00:07 Chronic disease of tonsils AND/OR adenoids 71180624 Active 2017 Tonsillar tag; Location: right Not e: Date Diagnosed : 08/02/2017 11:16 AM (J35.8) Not Available [facility] 4 03:00:05 Impacted cerumen 42042233 Active 2014 Impacted cerumen; Note: Date Diagnosed : 07/17/2014 2:40 PM (380.4) Not Available [facility] 4 03:00:07 Ulcerativ e rhinitis 37249890 Active 2023 JESUS MCELROY MD [address] [facility],[place] [address], [place], [place], [address] , [facility] - [facility] 4 09:52:39 Nasal mucosa dry 05966259 Active 2023 JESUS MCELROY MD [address] [place] [address],[place] [address], [place], [place], [address] , [facility] - [facility] 4 09:53:39 Problem Notes None recorded. Medical Equipment None Reported. Allergies No known drug allergies Medications Name Sig Start Date Stop Date Status Note LastModified by Organization Details LastModified Time tizanidin e 4 mg tablet 10/21 completed Medicati on ID: [id number] D uration Value: 30 Reason: () Brand Name: tizanidi ne Send Method: E-Prescr ibed Sub s Allowed: subs OK Speci al Instruct ion: take 1 tablet by mouth three times a day Medi cationGe nericNam e: tizanidi ne Not Available Not Available Not Available famotidin e 40 mg tablet 04/13 completed Medicati on ID: [id number] D uration Value: 30 Brand Name: famotidi [...] mg tablet 10/21 completed Medicati on ID: [id number] D uration Value: 30 Reason: () Brand [...] topical cream 04/13 completed Medicati on ID: [id number] D uration Value: 30 Brand Name: mometaso ne Send Method: E-Prescr ibed Sub s Allowed: subs OK Medic ationGen ericName : mometaso ne Not Available Not Available Not Available Flonase Allergy Relief 50 mcg/actua tion nasal spray,yen pension 2 puff into both nostrils 04/13 completed Medicati on ID: [id number] D uration Value: 120 Prescri bed By [...] Updated DateTime 02/07/2024 154.94 cm 23.6 kg/m2 85407.05 g Reji Mtz [facility] 02/07/2024 10:32:32 Date Recorded Body height Body mass index (BMI) Body weight Provider Name and Address Organization Details Last Updated DateTime 04/13/2024 154.94 cm 23.6 kg/m2 19860.05 g Francoise Burgos [facility] 04/13/2024 09:16:54 Social History None recorded. Functional Status None recorded. Mental Status None recorded. Family History Nothing Reported. Medical History No medical history recorded. Gynecological HistoryNo gynecological history recorded. Obstetrics History GPAL:G 0 P 0 0 0 0 Past Encounters Encounter ID Performer Location Encounter Start Date Encounter Closed Date Diagnosis/Indication Diagnosis SNOMED-CT Code Diagnosis ICD10 Code Diagnosis Note [id number] TRINIDAD ROBERTSON PA-C [facility] [address] [address] 02/07/2024 10:14:01 02/07/2024 10:42:12 Examination of ear 872680518 Z01.10 [id number] JESUS MCELROY MD [facility] [address] [address] 04/13/2024 09:12:22 04/13/2024 09:40:00 Nasal mucosa dry 76572757 J34.89 73-year-ol d female presents today for [...] Recorded Advance Directives Directive None Recorded Payers Insurance Date Sequence Insurance Name Policy Number Policy Sullivan Covered Member ID Sullivan Member ID Guarantor Name 08/16/2024 1 [place] [email or web address] Damari Kumar [facility] [id number] Damari Kumar [facility] 08/16/2024 2 [place] [facility] Damari Kumar [facility] [id number] Damari Kumar [facility] Notes Date Note Type Note Provider Name and Address Organization Details Recorded Time 02/07/2024 text/html 73 year old female presents for ear cleaning. She denies otalgia, otorrhea, changes in her hearing, and dizziness. She did not end up getting hearing aids last year and feels that her hearing is adequate for the most part. YANDY PERRIN MD [address] [place] [address],[address], [address], [facility] 02/07/2024 17:31:17 04/13/2024 text/html 73 yo F presents with some irritation left nasal septum; she has noted some white spot and irritation, airflow seems ok usually.Dr. Varma diagnosed her deviated septum many years ago.Saline helps. Usually seen for cerumen. JESUS MCELROY MD [address] [place] [address],[place] [address], [place], [address], [facility] 04/13/2024 09:54:36 OBGyn Episode No OBEpisode recorded.
--- OUTSIDE RECORDS SUMMARY | 2024-09-17 12:25 | XMS_ITS | Patient Health Record ---
Author Organization [facility] Prema Luley Address [address] [place] [address] Care Team Providers Care Yardmaster Name Role Phone Saw Lora Unavailable [phone] Reason For Referral No Information Plan Of Treatment No Information Insurance Providers Payer Name Payer Address Payer Phone Subscriber Number Group Number Insured Name Patient Relationship to Insured Coverage Start Date Coverage End Date [facility] [employer] Claims [address] [place] [id number] Damari Campos Self - patient is the insured
[2024-09-17 13:51] LABS: Basophils Percent Auto 0.6 % (0-2); Eosinophils Absolute Auto 0.1 X10*3/uL (0.0-0.4); Eosinophils Percent Auto 0.9 % (0-4); Hematocrit 40.5 % (37.0-47.0); Hemoglobin 13.6 g/dl (12.0-16.0); Imm Gran Abs Auto 0.02 X10*3/uL (0.00-0.03); Imm Gran Pct Auto 0.3 % (0.0-0.4); Lymphocytes Absolute Auto 2.1 X10*3/uL (1.2-4.9); Lymphocytes Percent Auto 33.3 % (20-40); Mean Corpuscular HGB Conc 33.6 g/dl (31.0-35.0); Mean Corpuscular Hemoglobin 30.6 pg (27.0-33.0); Monocytes Absolute Auto 0.5 X10*3/uL (0.1-1.2); Monocytes Percent Auto 7.6 % (2-11); Neutrophils Absolute Auto 3.6 x10*3/uL (2.0-8.3); Neutrophils Percent Auto 57.3 % (45-73); Platelet Count 316 X10*3/uL (160-400); Red Blood Count 4.45 X10*6/uL (4.20-5.50); White Blood Count 6.3 X10*3/uL (4.8-10.8)
[2024-09-17 14:10] LABS: Appearance Urine Clear; Color Urine Yellow; Glucose Urine UA Negative (Negative); Leukocyte Esterase Urine Negative (Negative); Nitrite Urine Negative (Negative); PH 7.5 (5.0-9.0); Specific Gravity - Urine 1.015 (1.005-1.025); Urine Blood Negative (Negative); Urine Ketones Negative (Negative); Urine Protein Negative (Neg-Trace)
[2024-09-17 14:25] LABS: Erythrocyte Sedimentation Rate 16 MM/HR (0-20)
[2024-09-17 14:50] LABS: Alanine Aminotransferase 15 U/L (0-31); Albumin Level 4.2 g/dL (3.5-5.0); Alkaline Phosphatase 58 U/L (39-117); Anion Gap 11 (12-20); Aspartate Amino Transferase 30 U/L (5-31); Bilirubin Total 0.6 mg/dL (0.0-1.0); Blood Urea Nitrogen 18 mg/dL (9-16); Calcium 9.3 mg/dL (8.4-10.2); Carbon Dioxide 27 mmol/L (22-29); Chloride 107 mmol/L (96-108); Estimated Glomerular Filt Rate > 60; Glucose Random 83 mg/dL (60-115); Sodium 141 mmol/L (135-145); TSH reflex Free T4 1.33 uIU/mL (0.32-4.0); Total Protein 7.5 g/dL (6.5-8.0)
== END 2024-09-17 11:39 | disposition home or self-care (01) ==
LOC: HO.LAB 11:38
PROVIDERS: PCP Internal Medicine; Visit Provider Internal Medicine
DX: Z00.00 Encounter for general adult medical examination without abnormal findings (principal); R51.9 Headache, unspecified; R31.9 Hematuria, unspecified
CPT/HCPCS: 36415; 80053; 81003; 84443; 85025; 85652

== ENCOUNTER 2024-10-06 09:06 | Outpatient (REF) | payer MEDICARE, MEDICAID, SELFPAY ==
--- NOTE | ~2024-10-06 | XR_ITS ---
CLINICAL HISTORY: S69.92XA - Unspecified injury of left wrist, hand and finger(s), initial... --- Add itional Notes or Special Instructions: LEFT MIDDLE FINGER, WATERMELON DROPPED ON IT; SWELLING AND BRU ISING ON DIP 3 view left hand Comparison: None Findings: Bones intact. No dislocations. Mild demineralization and degenerative change. No erosions. No radiopaque foreign body. IMPRESSION: 1. No acute findings. This document has been electronically signed by: Artie Padilla MD on 10/06/2024 10:28:30
== END 2024-10-06 09:07 | disposition home or self-care (01) ==
LOC: HO.HMGCX 09:06
PROVIDERS: PCP Internal Medicine; Visit Provider Nurse Practitioner Family
DX: S69.92XA Unspecified injury of left wrist, hand and finger(s), initial encounter (principal); R51.9 Headache, unspecified; R42 Dizziness and giddiness
CPT/HCPCS: 73130

== ENCOUNTER 2024-10-06 09:06 | Outpatient (AMB) | payer MEDICARE, MEDICAID, SELFPAY ==
[2024-10-06 09:10] VITALS: BP 122/80; PULSE 58; RESP 15; TEMP 36.7; O2SAT 97
--- NOTE | 2024-10-06 09:10 | AM.OFFWIN_ITS ---
Intake Vital Signs 10/06/24 09:10 Height 5 ft BMI Reason not done Patient refused/unable BP 122/80 Blood Pressure Location Rt brachial Position Sitting Respiration 15 Pulse 58 Pulse Source Pulse Oximeter Temp 98.1 F Temp Source Oral Pulse Oximetry (%) 97 Oxygen Delivery Method Room Air Intake Visit Reasons: EP injured LT finger Intake Note: Pt is here today c/o Lt hand middle finger pain due to watermelon falling on hand last night Patient Tobacco Use Status: Never used Tobacco Allergies alcohol [ALCOHOL] Allergy (Unknown, Verified 10/06/24 09:23) ON SKIN - HIVES , SWELLING gluten [GLUTEN] Allergy (Unknown, Verified 10/06/24 09:23) HIVES lactose Allergy (Unknown, Verified 10/06/24 09:23) Rash latex [LATEX] Allergy (Unknown, Verified 10/06/24 09:23) HIVES,SWELLING mold Allergy (Unknown, Verified 10/06/24 09:23) HIVES yeast, dried [YEAST] Allergy (Unknown, Verified 10/06/24 09:23) HIVES cephalexin [From Keflex] Adverse Reaction (Intermediate, Verified 10/06/24 09:23) sleepy smoked meat Allergy (Mild, Uncoded 10/06/24 09:14) Hives Medication List - Last Reconciled 10/06/24 by MAGED Wyman- albuterol sulfate 90 mcg/actuation 2 puffs inhalation Q4-6H PRN 30 days cholecalciferol (vitamin D3) 25 mcg PO DAILY nrymfj-juaxjczk-txbuuyy 6,000-19,000 -30,000 unit (Creon) 1 cap PO .TIDAC omeprazole 20 mg PO DAILY simethicone (Gas Relief (simethicone)) 180 mg PO BID HPI HPI Comments History of Present Illness Details History of Present Illness - The patient is a 74-year-old female pr esenting with left middle finger pain and injury. - Reports injury from a watermelon falli ng on her hand last night. - Severe, acute pain and swelling noted in the left middle finger, worsening at night. - Has had dizziness spells for months, a ccompanied by severe stabbing headaches. - Recurrent episodes of dizziness percei cisco as severe and concerning. States has had labs for eval and tx. - Feels generally weak and lethargic. - States she is not here for the dizzy s pells, rather the finger, but is also curious as to the cause of her dizzy spells. PCP Dr Strong Review of Systems - Neurological: Reports dizziness and se isrrael headaches. - Musculoskeletal: Reports pain and swel ling in the left middle finger; arthritis. - General: Reports general weakness and lethargy. Physical Exam General: Well developed, well nourished, in no acute distress. Appears stated age. Head: Normocephalic, atraumatic. Eyes: Pupils are equal, round and reactive to light and accommodation. MSK: Left hand neurovasc intact; FROM; Normal strength. Cap refill WNL. Middle DIP ecchymotic on pad, pain with palp, no obvious deformity. Rest of hand is normal Discussion Notes During the visit, the patient's concerns regarding her left middle finger injury and associated symptoms were discussed. An X-ray was scheduled to assess potential fracture in the finger. I sent message to Dr. Strong, her primary care physician, to inform him about her recent episodes of dizziness and headache. I explained the importance of gaining further insights into the underlying causes of her symptoms through potential imaging or other diagnostic evaluations. ED eval and tx also reviewed - declined. I also advised on the immediate management of her finger pain, including the application of a copper-infused glove and a splint for immobilization. Further, follow-up with Dr. Strong for her dizziness and headache concerns was emphasized. Assessment and Plan 1. Left Middle Finger Injury - X-ray ordered to check for fracture. W ill be called later w/ results. - Advised finger splint for pain relief and support. - OTC analgesia and supportive care. 2. Dizziness - Notified Dr. Strong; possible imaging stud ies suggested. 3. Severe Headache - Recurring episodes; follow-up with Dr. Strong suggested. Patient Instructions - Elevate and rest the injured finger as much as possible. - Wear the provided splint to stabilize the finger and reduce pain. - Contact Dr. Strong for any persisting dizz iness or worsening symptoms. - Return for any changes in condition or if new symptoms develop. Consent Patient was informed and verbally consented to the use of an ambient scribe for clinic note documentation during this visit. Total time spent caring for the patient today was 30 minutes. This includes time spent before the visit reviewing the chart, time spent during the visit, and time spent after the visit on documentation, reviewing laboratory results, diagnostic imaging, medications, performing a medically necessary evaluation, counseling on diagnoses, care coordination, ordering appropriate tests, ordering appropriate medications, review of tests performed by other providers, reporting test results with the patient, communication with other healthcare providers. [facility] Medical History Annual wellness visit Osteopenia Upper respiratory infection Adult general medical exam Irritable bowel syndrome with both constipation and diarrhea Urethritis Asthma Restrictive lung disease Cough Screening for diabetes mellitus Low back pain Acute sinusitis Irritable bowel syndrome with constipation Tubular adenoma of colon Hx of osteopenia Lumbar disc disease Bronchitis with flu GERD (gastroesophageal reflux disease) PTSD (post-traumatic stress disorder) Panic disorder History of chronic rhinitis Fibrocystic breast disease Osteoarthritis Hx of irritable bowel syndrome Neurodermatitis Surgical History History of colonoscopy Hx of esophagogastroduodenoscopy Hx of tonsillectomy Hx of cholecystectomy H/O colonoscopy with polypectomy Family History Father Alcoholic Arthritis Mother Schizophrenia Heart failure Brother Hep C w/ coma, chronic Drug addict Cancer Other Mental health disorder Substance use disorder Social History Household Members: Friend(s) and None Housing: Other Alcohol intake: current Alcohol intake frequency: holidays/special occasions only Alcohol type: wine Patient Tobacco Use Status: Never used Tobacco Tobacco use type: Cigarette e-Cigarette/Vaping Use: Never Used Second Hand Smoke Exposure: No service: No Current occupational status: retired Cognitive needs: No Hearing needs: No Vision needs: No Physical Exam Vital Signs: Last Vital Signs Temp 98.1 F 10/06/24 09:10 Pulse 58 10/06/24 09:10 Resp 15 10/06/24 09:10 BP 122/80 10/06/24 09:10 Pulse Ox 97 10/06/24 09:10 Oxygen Delivery Method Room Air 10/06/24 09:10 Assessment & Plan Assessment & Plan (1) Injury of left middle finger: Code(s): S69.92XA - Unspecified injury of left wrist, hand and finger(s), initial encounter Qualifiers: Encounter type: initial encounter Qualified Code(s): S69.92XA - Unspecified injury of left wrist, hand and finger(s), initial encounter (2) Dizzy spells: Code(s): R42 - Dizziness and giddiness (3) Headache: Code(s): R51.9 - Headache, unspecified Qualifiers: Headache type: unspecified Headache chronicity pattern: unspecified pattern Intractability: not intractable Qualified Code(s): R51.9 - Headache, unspecified Plan . Orders: Orders XR hand LT 2V Today S69.92XA - Unspecified injury of left wrist, hand and finger(s), initial encounter Patient Instructions: Patient Instructions - Elevate and rest the injured finger as much as possible. - Wear the provided splint to stabilize the finger and reduce pain. - Contact Dr. Strong for any persisting dizziness or worsening symptoms. - Return for any changes in condition or if new symptoms develop. Coding Level of Care Code Est Pt Level 4 (44507) Diagnoses Injury of left middle finger, initial encounter S69.92XA Encounter type: initial encounter Dizzy spells R42 Nonintractable headache, unspecified chronicity pattern, unspecified headache type R51.9 Headache type: unspecified Headache chronicity pattern: unspecified pattern Intractability: not intractable
== END 2024-10-06 09:53 | disposition home or self-care (01) ==
PROVIDERS: PCP Internal Medicine; Visit Provider Nurse Practitioner Family
DX: S69.92XA Unspecified injury of left wrist, hand and finger(s), initial encounter (principal); R42 Dizziness and giddiness; R51.9 Headache, unspecified

== ENCOUNTER → 2024-10-06 09:50 | Outpatient (BNV) | payer MEDICARE, MEDICAID, SELFPAY | PROVIDERS: PCP Internal Medicine; Visit Provider Radiology Vascular & Interventional Radiology | DX: S69.92XA Unspecified injury of left wrist, hand and finger(s), initial encounter (principal) | CPT/HCPCS: 73130 ==

== ENCOUNTER 2024-12-04 11:31 | Outpatient (AMB) | payer MEDICARE, MEDICAID, SELFPAY ==
--- OUTSIDE RECORDS SUMMARY | 2023-11-14 06:00 | XMS_ITS ---
Author Organization [facility] Address [address] [place] [address] Care Team Providers Care Sales Ambassador Name Role Phone Guido Saw Unavailable [phone] Encounters Encounter Location Date Provider Diagnosis [facility] [address] [facility] [address] [place] [address] 11/14/2023 Saw Lora Plan Of Treatment No Information Progress Notes * Damari CAMPOSDOB:1950 ([age] yo F)Acc No.[id number]:11/14/2023 Progress Notes Patient: Damari THOMPSON Provider: Ani Lora DPM :1950 A ge:73 Y S ex:Female Date:11/14/2023 Address:[address] [place] [address] [place], [place] Subjective: * Chief Complaints: * * Medical History: Objective: * Vitals: Assessment: Plan: * Treatment: * Images: * The named appointment provid er may or may not be the originator of this progress note, and it is not deemed complete until electronically signed by the appointment provider. Sign off status: Pending * Provider: Ani Lora DPM Date: 11/14/2023 Generated for Shira juarez/Mac/Kwabenaitting on: 12/04/2024 12:43 PM EDT
[2024-12-04 12:44] VITALS: BP 142/68; PULSE 61; TEMP 36.8; O2SAT 98
--- NOTE | 2024-12-04 12:44 | AM.OFFWIN_ITS ---
Intake Vital Signs 12/04/24 12:44 Height 5 ft BMI Reason not done Patient refused/unable BP 142/68 H Blood Pressure Location Lt brachial Position Sitting Pulse 61 Pulse Source Pulse Oximeter Temp 98.3 F Temp Source Oral Pulse Oximetry (%) 98 Oxygen Delivery Method Room Air Intake Visit Reasons: EP ? infection on RT leg toward the heel Intake Note: presents with open wounds on right ankle, right foot and left ankle, starts as itchy blisters and she scratches. unable to get in to see her White Spooler Patient Tobacco Use Status: Never used Tobacco Allergies alcohol (ALCOHOL) Allergy (Unknown, Verified 12/04/24 12:49) ON SKIN - HIVES , SWELLING gluten (GLUTEN) Allergy (Unknown, Verified 12/04/24 12:49) HIVES lactose Allergy (Unknown, Verified 12/04/24 12:49) Rash latex (LATEX) Allergy (Unknown, Verified 12/04/24 12:49) HIVES,SWELLING mold Allergy (Unknown, Verified 12/04/24 12:49) HIVES yeast, dried (YEAST) Allergy (Unknown, Verified 12/04/24 12:49) HIVES cephalexin (From Keflex) Adverse Reaction (Intermediate, Verified 12/04/24 12:49) sleepy smoked meat Allergy (Mild, Uncoded 10/06/24 09:14) Hives Do you need a note to return to daycare/school/sports/work: No HPI HPI Comments History of Present Illness Details History - The patient is a 74-year-old female pr esenting with a past med hx of neurodermatiti c/o possible skin infection on her right foot. - The patient has a 16-year history of n eurodermatitis, follows with Derm, which has progressively worsened over time. - The condition is exacerbated during e summer due to dehydration and environmental factors. - The patient experiences severe itching and pain, particularly in the foot, which is currently in excruciating throbbing pain. - Previous treatments have included topi maria de jesus creams and Mupirocin, which have been ineffective. - The patient has a history of staphyloc occal infections, which become systemic if untreated. - The patient reports feeling wobbly and unwell. - The patient has been prescribed Keflex in the past, which has been effective in managing the infections. - The patient has plantar fasciitis, whi ch has been managed with supportive footwear. Physical Exam General: Cooperative, healthy appearing, comfortable, no acute distress and well developed Orientation: Patient oriented x3 Limitations: No limitations Head: Normal to inspection Ears: Hearing grossly normal bilaterally Nose: Normal External nose present Face and sinus: Normal facial exam Mouth: normal, moist oral mucosa Eyes: Appearance normal, both eyes and all related structures Neck: Normal visual inspection and Yes full ROM Respiratory: Normal respiratory effort and able to speak in complete sentences. Skin: right lateral ankle with 3 areas of open erythematous non draining wounds approx 1cm oval each, area is warm and ttp, no scabbing. Neuro: Patient oriented x3, gait normal Extremities: moving all extremities normally, [facility] Medical History Annual wellness visit Osteopenia Upper respiratory infection Adult general medical exam Irritable bowel syndrome with both constipation and diarrhea Urethritis Asthma Restrictive lung disease Cough Screening for diabetes mellitus Low back pain Acute sinusitis Irritable bowel syndrome with constipation Tubular adenoma of colon Hx of osteopenia Lumbar disc disease Bronchitis with flu GERD (gastroesophageal reflux disease) PTSD (post-traumatic stress disorder) Panic disorder History of chronic rhinitis Fibrocystic breast disease Osteoarthritis Hx of irritable bowel syndrome Neurodermatitis Surgical History History of colonoscopy Hx of esophagogastroduodenoscopy Hx of tonsillectomy Hx of cholecystectomy H/O colonoscopy with polypectomy Family History Father Alcoholic Arthritis Mother Schizophrenia Heart failure Brother Hep C w/ coma, chronic Drug addict Cancer Other Mental health disorder Substance use disorder Social History Household Members: Friend(s) and None Housing: Other Alcohol intake: current Alcohol intake frequency: holidays/special occasions only Alcohol type: wine Patient Tobacco Use Status: Never used Tobacco Tobacco use type: Cigarette e-Cigarette/Vaping Use: Never Used Second Hand Smoke Exposure: No service: No Current occupational status: retired Cognitive needs: No Hearing needs: No Vision needs: No Review of Systems Const All systems reviewed & are unremarkable except as noted in HPI and below Physical Exam Vital Signs: Last Vital Signs Temp 98.3 F 07/29/25 12:44 Pulse 61 12/04/24 12:44 BP 142/68 H 12/04/24 12:44 Pulse Ox 98 12/04/24 12:44 Oxygen Delivery Method Room Air 12/04/24 12:44 Assessment & Plan Assessment & Plan (1) Cellulitis: Code(s): L03.90 - Cellulitis, unspecified Qualifiers: Laterality: right Site of cellulitis: extremity Site of cellulitis of extremity: lower extremity Qualified Code(s): L03.115 - Cellulitis of right lower limb Plan: Plan Patient was informed and verbally consented to the use of an ambient scribe for clinic note documentation during this visit Cellulitis - Initiate Keflex 500 mg every 6 hours for 7 days. - Follow up with primary care physician as previously scheduled. - If worsening of symptoms develop, she should follow up with her chief accountant, PCP or go to the emergency department Neurodermatitis - Continue with supportive measures and follow up with chief accountant. Medications: New cephalexin 500 mg PO Q6H 28 caps 0RF Coding Level of Care Code Est Pt Level 3 (77504) Diagnoses Cellulitis of right lower extremity L03.115 Laterality: right Site of cellulitis: extremity Site of cellulitis of extremity: lower extremity
--- OUTSIDE RECORDS SUMMARY | 2024-12-04 12:44 | XMS_ITS ---
take 1 tablet by mouth three times a day Medi cationGe nericNam e: tizanidi ne Not Available Not Available Not Available famotidin e 40 mg tablet 04/13 completed Medicati on ID: [id number] D uration Value: 30 Brand Name: famotidi [...] 1 CAPSULE BY MOUTH THREE TIMES DAILY active Not Available Not Available No t Available erythromy moriah 5 mg/gram (0.5 %) [...] mg tablet 10/21 completed Medicati on ID: [id number] D uration Value: 30 Reason: () Brand Name: hydroxyz ine HCl Send Method: E-Prescr ibed Sub s Allowed: subs OK Speci al Instruct ion: TAKE 1 TO 2 TABLETS BY MOUTH UP TO FOUR TIMES A DAY Medi cationGe nericNam e: hydroxyz ine HCl Not Available Not Available Not Available mupirocin 2 % topical ointment APPLY TO OPEN WOUNDS THREE TIMES DAILY FOR 7 DAYS active Not Available Not Available No t Available zolpidem 5 mg tablet TAKE 1 TABLET BY MOUTH AT BEDTIME NEEDED FOR SLEEP active Not Available Not Available No t Available gabapenti n 100 mg capsule TAKE 2 CAPSULES BY MOUTH TWICE DAILY active Not Available Not Available No t Available hydroxyzi ne HCl 10 mg tablet TAKE 1 TABLET BY MOUTH TWICE DAILY NEEDED FOR FLARES 04/13 completed Not Available Not Available Not Available mometason e 0.1 % topical cream 04/13 completed Medicati on ID: [id number] D uration Value: 30 Brand Name: mometaso ne Send Method: E-Prescr ibed Sub s Allowed: subs OK Medic ationGen ericName : mometaso ne Not Available Not Available Not Available amoxicill in 875 mg-potass ium clavulana te 125 mg tablet TAKE 1 TABLET BY MOUTH EVERY 12 HOURS active Not Available Not Available No t Available Flonase Allergy Relief 50 mcg/actua tion nasal spray,yen pension 2 puff into both nostrils 04/13 completed Medicati on ID: [id number] D uration Value: 120 Prescri bed By [...] and Address Organization Details Last Updated DateTime 10/29/2024 154.94 cm 23.6 kg/m2 32321.05 g Lexis Christensen [place] [facility] 10/29/2024 15:06:09 Date Recorded Body height Body mass index (BMI) Body weight Provider Name and Address Organization Details Last Updated DateTime 02/07/2024 154.94 cm 23.6 kg/m2 22642.05 g Reji Mtz [place] [facility] 02/07/2024 10:32:32 Date Recorded Body height Body mass index (BMI) Body weight Provider Name and Address Organization Details Last Updated DateTime 04/13/2024 154.94 cm 23.6 kg/m2 89955.05 g Francoise Burgos [place] [facility] 04/13/2024 09:16:54 Social History None recorded. Functional Status None recorded. Mental Status None recorded. Family History Nothing Reported. Medical History No medical history recorded. Gynecological HistoryNo gynecological history recorded. Obstetrics History GPAL:G 0 P 0 0 0 0 Past Encounters Encounter ID Performer Location Encounter Start Date Encounter Closed Date Diagnosis/Indication Diagnosis SNOMED-CT Code Diagnosis ICD10 Code Diagnosis Note [id number] TRINIDAD ROBERTSON PA-C [facility] [address] [address] 02/07/2024 10:14:01 02/07/2024 10:42:12 Examination of ear [id number] Z01.10 [id number] JESUS MCELROY MD [facility] [address] [address] 04/13/2024 09:12:22 04/13/2024 09:40:00 Nasal mucosa dry [id number] J34.89 73-year-ol d female presents today for [...] is scheduled for ear cleaning in August. [id number] JUAN MCGREGOR PA-C [facility] [address] [address] 10/29/2024 14:37:44 10/29/2024 15:23:19 Impacted cerumen of bilateral ears [id number] 833153 H61.23 Health Concerns Section Related Observation LastModified by Organization Detai ls LastModified Time None Recorded Concern Status LastModified by Organization Details LastModified Time None Recorded Advance Directives Directive None Recorded Payers Insurance Date Sequence Insurance Name Policy Number Policy Sullivan Covered Member ID Sullivan Member ID Guarantor Name 10/29/2024 1 [place] [employer] ([employer] Damari Kumar [facility] [id number] Damari Kumar [facility] 10/29/2024 2 [place] [facility] Damari Campos [id number] Damari Campos OBGyn Episode No OBEpisode recorded.
== END 2024-12-04 13:59 | disposition home or self-care (01) ==
PROVIDERS: PCP Internal Medicine; Visit Provider Physician Assistant
DX: L03.115 Cellulitis of right lower limb (principal)

== ENCOUNTER → 2024-12-04 11:31 | Outpatient (BNVA) | payer MEDICARE, MEDICAID, SELFPAY | PROVIDERS: PCP Internal Medicine; Visit Provider Physician Assistant | DX: L03.115 Cellulitis of right lower limb (principal) | CPT/HCPCS: 99212 ==

== ENCOUNTER 2025-01-15 10:24 | Outpatient (AMB) | payer MEDICARE, MEDICAID, SELFPAY ==
--- OUTSIDE RECORDS SUMMARY | 2023-11-14 06:00 | XMS_ITS ---
Author Organization [facility] Address [address] [place] [address] Care Team Providers Care Neurosurgeon Name Role Phone Guido Saw Unavailable [phone] Encounters Encounter Location Date Provider Diagnosis [facility] [address] [place] [address] 11/14/2023 Saw Lora Plan Of Treatment No Information Progress Notes * Damari CAMPOSDOB:1950 ([age] yo F)Acc No.[id number]:11/14/2023 Progress Notes Patient: Damari THOMPSON Provider: Ani Lora DPM :1950 A ge:73 Y S ex:Female Date:11/14/2023 Address:[address] [place] [address] [place], [place] Subjective: * Chief Complaints: * * Medical History: Objective: * Vitals: Assessment: Plan: * Treatment: * Images: * The named appointment provid er may or may not be the originator of this progress note, and it is not deemed complete until electronically signed by the appointment provider. Sign off status: Pending * Provider: Ani Lora DPM Date: 11/14/2023 Generated for Shira juarez/Mac/Kwabenaitting on: 01/15/2025 12:12 PM EDT
--- NOTE | 2025-01-15 10:31 | A.OFFVIS_ITS ---
Vital Signs 01/15/25 10:36 Height 5 ft BMI Reason not done Patient refused/unable BP 126/76 Blood Pressure Location Lt brachial Position Sitting Intake Visit Reasons: 3 mo f/u , r/s 11/29 Intake Note: Damari presents in office today in follow up of GERD and IBS. CC: Pt c/o awful feeling on my chest that she doesn't know what it is. She c/o having a bad headache and states she is afraid something is going to happen to her. She states that she feels burned out. 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: No Accompanied by: Self / Same As Patient Allergies alcohol (ALCOHOL) Allergy (Unknown, Verified 01/15/25 10:53) ON SKIN - HIVES , SWELLING gluten (GLUTEN) Allergy (Unknown, Verified 01/15/25 10:53) HIVES lactose Allergy (Unknown, Verified 01/15/25 10:53) Rash latex (LATEX) Allergy (Unknown, Verified 01/15/25 10:53) HIVES,SWELLING mold Allergy (Unknown, Verified 01/15/25 10:53) HIVES yeast, dried (YEAST) Allergy (Unknown, Verified 01/15/25 10:53) HIVES cephalexin (From Keflex) Adverse Reaction (Intermediate, Verified 01/15/25 10:5 3) sleepy smoked meat Allergy (Mild, Uncoded 10/06/24 09:14) Hives HPI HPI 3 mo f/u , r/s 11/29: Details: Assessment & Plan (1) Acute diarrhea: Code(s): R19.7 - Diarrhea, unspecified Category: Medical (2) Anxiety: Code(s): F41.9 - Anxiety disorder, unspecified Category: Medical (3) Palpitations: Code(s): R00.2 - Palpitations Category: Medical (4) Irritable bowel syndrome with constipation: Code(s): K58.1 - Irritable bowel syndrome with constipation Category: Medical (5) GERD (gastroesophageal reflux disease): Code(s): K21.9 - Gastro-esophageal reflux disease without esophagitis Category: Medical Qualifiers: Esophagitis presence: without esophagitis Qualified Code(s): K21.9 - Gastro-esophageal reflux disease without esophagitis Plan She is due for repeat colonoscopy screening this year; however she flatly refuses to consider this. We also discussed COloguard, but she feels she can not predict her BM's right now to do this. She has been very stressed recently, she had an episode of severe watery diarrhea for a couple of days. It seems to have been preceded by an episode of severe shaking and palpitations when she ws attending a friends . This was very emotional for her, and she says I have been crying all week after losing the father (the Becker). She has also had some CIC, but is using [employer] Imodium when she has these episodes (this has happened twice). She has had additional labs ordered by her PCP as well as a holter monitor for her sx. Her EGD that I ordered was ok just sinus rojelio - but t his does not rule out various transient arrythmias. She does not like the idea of a holter, but I try to educate her and talk her in to it. She is trying to drink a lot of water and sing to relieve her stress. Given her anxiety and her recently health/bowel challenges I think she needs to calm down, do a light diet, and hydrate and let her body settle down. We will discuss COloguard in 6 mos. She is very worried about variability in her BP's - she thinks using beet juice helps with this. I encourage her to do the labs ordered by her PCP. I cancel the GI series order since her diarrhea is resolving ROV 3 mos. Medications: Changed From simethicone (Gas Relief (simethicone)) 180 mg PO BID PRN To simethicone (Gas Relief (simethicone)) 180 mg PO BID 120 caps 12RF Refilled omeprazole 20 mg PO DAILY 30 caps 6RF dicyclomine 20 mg PO QID 120 tabs 3RF 30 days K58.1 - Irritable bowel syndrome with constipation [id number] 6,000-19,000 -30,000 unit (Creon) do not exceed 10,000 unit/kg lipase per 24 hrs 1 cap PO .TIDAC 90 caps 6RF K58.2 - Mixed irritable bowel syndrome TODAY'S VISIT [facility] Medical History Annual wellness visit Osteopenia Upper respiratory infection Adult general medical exam Irritable bowel syndrome with both constipation and diarrhea Urethritis Asthma Restrictive lung disease Cough Screening for diabetes mellitus Low back pain Acute sinusitis Irritable bowel syndrome with constipation Tubular adenoma of colon Hx of osteopenia Lumbar disc disease Bronchitis with flu GERD (gastroesophageal reflux disease) PTSD (post-traumatic stress disorder) Panic disorder History of chronic rhinitis Fibrocystic breast disease Osteoarthritis Hx of irritable bowel syndrome Neurodermatitis Surgical History History of colonoscopy Hx of esophagogastroduodenoscopy Hx of tonsillectomy Hx of cholecystectomy H/O colonoscopy with polypectomy Family History Father Alcoholic Arthritis Mother Schizophrenia Heart failure Brother Hep C w/ coma, chronic Drug addict Cancer Other Mental health disorder Substance use disorder Social History Household Members: Friend(s) and None Housing: Other Alcohol intake: current Alcohol intake frequency: holidays/special occasions only Alcohol type: wine Patient Tobacco Use Status: Never used Tobacco Tobacco use type: Cigarette e-Cigarette/Vaping Use: Never Used Second Hand Smoke Exposure: No service: No Current occupational status: retired Cognitive needs: No Hearing needs: No Vision needs: No Review of Systems Const Denies fatigue, Denies fever(s), Reports headache(s), Denies night sweats, Denies poor appetite and Denies weight loss ENT Reports Normal hearing present, Denies dental pain, Denies dysphagia, Reports headache(s), Denies hearing loss, Denies mouth pain, Denies odynophagia, Denies throat swelling, Denies tongue swelling and Reports other (Dentition adequate) Card Reports chest pain Resp Reports no additional complaints GI Details: Denies abdominal pain, Denies melena, Reports bloating, Denies hematochezia, Reports constipation, Denies GI cramping, Denies dysphagia, Denies excessive flatus, Denies early satiety, Reports heartburn, Denies diarrhea, Reports loose stools, Denies nausea, Denies odynophagia, Denies vomiting and Denies hematemesis Skin/Breast Denies pruritus, Denies lesions, Denies rash and Denies jaundice Neuro Reports Normal hearing present, Denies Abnormal speech present and Reports headache(s) Psych Reports anxiety Endo Denies fatigue Aller/Immun Denies throat swelling and Denies tongue swelling Physical Exam Vital Signs: Last Vital Signs BP 126/76 01/15/25 10:36 Const General: cooperative, no acute distress, well developed and well groomed Nutritional Appearance: average body habitus and well nourished Orientation/consciousness: oriented to person, oriented to place and oriented to time Limitations: No language barrier HEENT Head: Yes normocephalic and Yes atraumatic Eyes General: appearance normal, both eyes and all related structures Pupils: Equal, round and reactive pupils present Neck Neck: Yes normal visual inspection and Yes no lymphadenopathy Thyroid: Thyroid normal Resp Effort & Inspection: normal respiratory effort and able to speak in complete sentences Auscultation: clear to auscultation bilaterally Cardio Rate: regular rate Rhythm: regular rhythm Heart sounds: Normal, physiologic split S2 sound present Peripheral pulses: radial pulses present and posterior tibial pulses present GI Inspection: No distended and No Abdominal panniculus present Palpation (GI): Soft to palpation, nontender, no guarding, not rigid and No hepatosplenomegaly present Percussion: Yes normal to percussion Auscultation: normal bowel sounds Rectal Exam - Female: deferred Skin General skin exam: no rashes or lesions noted, turgor normal, skin not dry, no jaundice, No spider nevi and no striae Rashes: no rashes Nails: normal Neuro General: oriented to person, oriented to place and oriented to time Cranial nerves: Yes Equal, round and reactive pupils present and Yes Normal hearing present Speech: No Abnormal speech present Extrem General: Yes normal to inspection, No clubbing, No cyanosis and No edema Psych Appearance: grossly normal and well kempt Mental Status: mental status grossly normal Speech and movement: Normal speech and movement present Affect: normal affect Attitude: cooperative Thought process: Normal thought process present and not confabulating Thought content: Normal thought content present Insight: Limited insight present (Psych) Judgement: Limited judgement present (Psych) Assessment & Plan Assessment & Plan (1) Diarrhea: Code(s): R19.7 - Diarrhea, unspecified Category: Medical (2) Tubular adenoma of colon: Comment: Last scope 2019 repeat in 5 years or 2024 aeb Code(s): D12.6 - Benign neoplasm of colon, unspecified Category: Medical (3) GERD (gastroesophageal reflux disease): Code(s): K21.9 - Gastro-esophageal reflux disease without esophagitis Category: Medical Qualifiers: Esophagitis presence: without esophagitis Qualified Code(s): K21.9 - Gastro-esophageal reflux disease without esophagitis Plan Her current GI regimen consists of omeprazole, simethicone, and Creon. - The patient is a 74-year-old female presenting with persistent GERD and related esophageal spasm symptoms over the past year. - She says she had a negative cardiac workup last year, validating my focus on esophageal issues. - Her symptoms, such as a sensation of an empty stomach in the chest and cough, intensify with bending or climbing stairs. - Omeprazole 20 mg has been used but is noted not entirely effective in managing her symptoms. We will increase her to 40 mg and see how much this impacts her symptoms before we do any other testing. As a reminder, she had quite a lot of difficulty recovering from her last EGD where she felt like she woke up choking. - She has not been taking her Creon recently because of these symptoms and it is uncertain how much her IBS may contributing. She has a somewhat illogical focus on thinking she has Edith in her gut. I have no hard evidence about this. -Contributing factors may include her feeling like she is ?burned out? always caring for other people and it is entirely possible the underlying anxiety is driving the symptoms. Return office visit in 4 weeks Medications: New omeprazole 40 mg PO DAILY 30 caps 6RF 30 days K21.9 - Gastro-esophageal reflux disease without esophagitis Coding Level of Care Code Est Pt Level 3 (32723) Diagnoses Diarrhea R19.7 Tubular adenoma of colon D12.6 Gastroesophageal reflux disease without esophagitis K21.9 Esophagitis presence: without esophagitis
[2025-01-15 10:36] VITALS: BP 126/76
--- OUTSIDE RECORDS SUMMARY | 2025-01-15 12:12 | XMS_ITS | Patient Health Record ---
Author Organization [facility] Address [address] [place] [address] Care Team Providers Care Nursing Agency Manager Name Role Phone Saw Lora Unavailable [phone] Reason For Referral No Information Plan Of Treatment No Information Insurance Providers Payer Name Payer Address Payer Phone Subscriber Number Group Number Insured Name Patient Relationship to Insured Coverage Start Date Coverage End Date [facility] [employer] Claims [address] [id number] [id number] Damari Campos Self - patient is the insured
== END 2025-01-15 11:24 | disposition home or self-care (01) ==
LOC: HO.HGI 10:24
PROVIDERS: PCP Internal Medicine; Visit Provider Nurse Practitioner
DX: R19.7 Diarrhea, unspecified (principal); D12.6 Benign neoplasm of colon, unspecified; K21.9 Gastro-esophageal reflux disease without esophagitis
CPT/HCPCS: 99213

== ENCOUNTER → 2025-01-15 10:24 | Outpatient (BNVA) | payer MEDICARE, MEDICAID, SELFPAY | PROVIDERS: PCP Internal Medicine; Visit Provider Nurse Practitioner | DX: R19.7 Diarrhea, unspecified (principal); D12.6 Benign neoplasm of colon, unspecified; K21.9 Gastro-esophageal reflux disease without esophagitis | CPT/HCPCS: 99212 ==

== ENCOUNTER 2025-01-25 08:23 | Outpatient (AMB) | payer MEDICARE, MEDICAID, SELFPAY ==
[2025-01-25 08:25] VITALS: BP 148/90; PULSE 54; RESP 16; TEMP 36.9; O2SAT 96
--- NOTE | 2025-01-25 08:25 | MHC.OFFWIV ---
Intake Vital Signs 01/25/25 08:25 Height 5 ft BMI Reason not done Patient refused/unable BP 148/90 H Blood Pressure Location Lt brachial Position Sitting Respiration 16 Pulse 54 Pulse Source Pulse Oximeter Temp 98.4 F Temp Source Oral Pulse Oximetry (%) 96 Intake Visit Reasons: EP sinus, head ache Patient Tobacco Use Status: Never used Tobacco Allergies alcohol (ALCOHOL) Allergy (Unknown, Verified 01/25/25 08:30) ON SKIN - HIVES , SWELLING gluten (GLUTEN) Allergy (Unknown, Verified 01/25/25 08:30) HIVES lactose Allergy (Unknown, Verified 01/25/25 08:30) Rash latex (LATEX) Allergy (Unknown, Verified 01/25/25 08:30) HIVES,SWELLING mold Allergy (Unknown, Verified 01/25/25 08:30) HIVES yeast, dried (YEAST) Allergy (Unknown, Verified 01/25/25 08:30) HIVES cephalexin (From Keflex) Adverse Reaction (Intermediate, Verified 01/25/25 08:30) sleepy smoked meat Allergy (Mild, Uncoded 10/06/24 09:14) Hives HPI HPI Comments History of Present Illness Details This is a 74-year-old female with a past medical history of gastroesophageal reflux disease presenting for evaluation of sinus pressure and headaches that she has had for the past 3 days. Patient reports mild phlegm which she will clear with coughing but denies having any fevers, chills, otalgia, pharyngitis, chest pain or shortness of breath. Patient has not taken any medication for treatment of her symptoms. [facility] Medical History Annual wellness visit Osteopenia Upper respiratory infection Adult general medical exam Irritable bowel syndrome with both constipation and diarrhea Urethritis Asthma Restrictive lung disease Cough Screening for diabetes mellitus Low back pain Acute sinusitis Irritable bowel syndrome with constipation Tubular adenoma of colon Hx of osteopenia Lumbar disc disease Bronchitis with flu GERD (gastroesophageal reflux disease) PTSD (post-traumatic stress disorder) Panic disorder History of chronic rhinitis Fibrocystic breast disease Osteoarthritis Hx of irritable bowel syndrome Neurodermatitis Surgical History History of colonoscopy Hx of esophagogastroduodenoscopy Hx of tonsillectomy Hx of cholecystectomy H/O colonoscopy with polypectomy Family History Father Alcoholic Arthritis Mother Schizophrenia Heart failure Brother Hep C w/ coma, chronic Drug addict Cancer Other Mental health disorder Substance use disorder Social History Household Members: Friend(s) and None Housing: Other Alcohol intake: current Alcohol intake frequency: holidays/special occasions only Alcohol type: wine Patient Tobacco Use Status: Never used Tobacco Tobacco use type: Cigarette e-Cigarette/Vaping Use: Never Used Second Hand Smoke Exposure: No service: No Current occupational status: retired Cognitive needs: No Hearing needs: No Vision needs: No Review of Systems Const All systems reviewed & are unremarkable except as noted in HPI and below Reports no additional complaints, Denies chills, Denies fatigue, Denies fever(s) and Reports headache(s) Eyes Reports no additional complaints ENT Reports no additional complaints, Denies otalgia, Reports headache(s), Denies nasal discharge, Denies odynophagia, Reports sinus pressure and Denies sore throat Card Denies chest pain Resp Denies chest congestion and Denies cough GI Denies odynophagia Reports no additional complaints Musc Reports no additional complaints Skin/Breast Reports system reviewed and no additional complaints, except as documented Neuro Reports no additional complaints and Reports headache(s) Psych Reports no additional complaints Endo Reports no additional complaints and Denies fatigue Aller/Immun Reports no additional complaints Physical Exam Vital Signs: Last Vital Signs Temp 98.4 F 01/25/25 08:25 Pulse 54 01/25/25 08:25 Resp 16 01/25/25 08:25 BP 148/90 H 01/25/25 08:25 Pulse Ox 96 01/25/25 08:25 Const General: cooperative, healthy appearing, comfortable, no acute distress, well developed, alert, awake and Physically active; No acute distress or ill appearing Nutritional Appearance: average body habitus Orientation/consciousness: patient oriented x3 Limitations: no limitations HEENT Head: Yes normal to inspection and Yes normocephalic Ears: hearing grossly normal bilaterally, external ears normal, TM normal on the right and left TM abnormal (TM bulging with minimal fluid level, no erythema) General nose exam: Normal external nose present Face and sinus: Yes normal facial exam, Yes sinuses nontender and Yes face symmetric Mouth: Normal oral and palatal mucosa present and moist mucous membranes Throat: Yes posterior oropharynx normal and Yes postnasal drainage Eyes General: appearance normal, both eyes and all related structures Resp Effort & Inspection: normal respiratory effort Auscultation: clear to auscultation bilaterally Cardio Rate: regular rate Rhythm: regular rhythm Skin General skin exam: no rashes or lesions noted Neuro General: patient oriented x3 Psych Appearance: grossly normal Mental Status: mental status grossly normal Insight: Good insight present (Psych) Judgement: Good judgement present (Psych) Assessment & Plan Assessment & Plan (1) Allergic sinusitis: Comment: Patient is evaluated. There is no evidence of a bacterial sinusitis, otitis media or bacterial pharyngitis. Patient will be discharged home and instructed to take loratadine once daily for the next 10 days and utilize Tylenol as needed for her headache. Code(s): J30.9 - Allergic rhinitis, unspecified Plan: Loratadine 10 mg once daily, Tylenol only as needed. Medications: New loratadine (Allergy Relief (loratadine)) 10 mg PO DAILY 30 tabs 0RF Coding Level of Care Code Est Pt Level 3 (75275) Diagnoses Allergic sinusitis J30.9 Time Spent (min) 20
== END 2025-01-25 08:54 | disposition home or self-care (01) ==
PROVIDERS: PCP Internal Medicine; Visit Provider Physician Assistant
DX: J30.9 Allergic rhinitis, unspecified (principal)

== ENCOUNTER → 2025-01-25 08:23 | Outpatient (BNVA) | payer MEDICARE, MEDICAID, SELFPAY | PROVIDERS: PCP Internal Medicine; Visit Provider Physician Assistant | DX: K21.9 Gastro-esophageal reflux disease without esophagitis (principal); J30.9 Allergic rhinitis, unspecified | CPT/HCPCS: 99212 ==

== ENCOUNTER 2025-02-13 12:16 | Outpatient (AMB) | payer MEDICARE, MEDICAID, SELFPAY ==
--- NOTE | 2025-02-13 12:46 | A.OFFVIS_ITS ---
Vital Signs 02/13/25 12:57 Height 5 ft BMI Reason not done Patient refused/unable Pulse 52 Pulse Source Pulse Oximeter Pulse Oximetry (%) 99 Oxygen Delivery Method Room Air Intake Visit Reasons: 4 week follow up Intake Note: Est pt for mgmt of GERD + IBS CC: C.O. GERD persistence despite her current therapy. Pt also has difficulties with her IBS per recent stressful live events (friend/roommate had a stroke). Pt believes she may need to try linzess or something similar but also feels that she had a bad reaction to the medication the last time she tried it. Strategic Planning Consultant Required: No Accompanied by: Self / Same As Patient Allergies alcohol (ALCOHOL) Allergy (Unknown, Verified 01/25/25 08:30) ON SKIN - HIVES , SWELLING gluten (GLUTEN) Allergy (Unknown, Verified 01/25/25 08:30) HIVES lactose Allergy (Unknown, Verified 01/25/25 08:30) Rash latex (LATEX) Allergy (Unknown, Verified 01/25/25 08:30) HIVES,SWELLING mold Allergy (Unknown, Verified 01/25/25 08:30) HIVES yeast, dried (YEAST) Allergy (Unknown, Verified 01/25/25 08:30) HIVES cephalexin (From Keflex) Adverse Reaction (Intermediate, Verified 01/25/25 08:30) sleepy smoked meat Allergy (Mild, Uncoded 10/06/24 09:14) Hives Medication List - Last Reconciled 02/13/25 by BILLY Lazaro albuterol sulfate 90 mcg/actuation 2 puffs inhalation Q4-6H PRN 30 days betamethasone dipropionate 0.05% appl topical dicyclomine 20 mg PO TID [id number] 6,000-19,000 -30,000 unit (Creon) 1 cap PO .TIDAC loratadine (Allergy Relief (loratadine)) 10 mg PO DAILY mupirocin 2% topical TID omeprazole 40 mg PO DAILY 30 days simethicone (Gas Relief (simethicone)) 180 mg PO BID HPI HPI 4 week follow up: Details: Assessment & Plan (1) Diarrhea: Code(s): R19.7 - Diarrhea, unspecified Category: Medical (2) Tubular adenoma of colon: Comment: Last scope 2019 repeat in 5 years or 2025 aeb Code(s): D12.6 - Benign neoplasm of colon, unspecified Category: Medical (3) GERD (gastroesophageal reflux disease): Code(s): K21.9 - Gastro-esophageal reflux disease without esophagitis Category: Medical Qualifiers: Esophagitis presence: without esophagitis Qualified Code(s): K21.9 - Gastro-esophageal reflux disease without esophagitis Plan Her current GI regimen consists of omeprazole, simethicone, and Creon. - The patient is a 74-year-old female presenting with persistent GERD and related esophageal spasm symptoms over the past year. - She says she had a negative cardiac workup last year, validating my focus on esophageal issues. - Her symptoms, such as a sensation of an empty stomach in the chest and cough, intensify with bending or climbing stairs. - Omeprazole 20 mg has been used but is noted not entirely effective in managing her symptoms. We will increase her to 40 mg and see how much this impacts her symptoms before we do any other testing. As a reminder, she had quite a lot of difficulty recovering from her last EGD where she felt like she woke up choking. - She has not been taking her Creon recently because of these symptoms and it is uncertain how much her IBS may contributing. She has a somewhat illogical focus on thinking she has Edith in her gut. I have no hard evidence about this. -Contributing factors may include her feeling like she is ?burned out? always caring for other people and it is entirely possible the underlying anxiety is driving the symptoms. Return office visit in 4 weeks Medications: New omeprazole 40 mg PO DAILY 30 caps 6RF 30 days K21.9 - Gastro-esophageal reflux disease without esophagitis TODAYS VISIT [facility] Medical History Annual wellness visit Osteopenia Upper respiratory infection Adult general medical exam Irritable bowel syndrome with both constipation and diarrhea Urethritis Asthma Restrictive lung disease Cough Screening for diabetes mellitus Low back pain Acute sinusitis Irritable bowel syndrome with constipation Tubular adenoma of colon Hx of osteopenia Lumbar disc disease Bronchitis with flu GERD (gastroesophageal reflux disease) PTSD (post-traumatic stress disorder) Panic disorder History of chronic rhinitis Fibrocystic breast disease Osteoarthritis Hx of irritable bowel syndrome Neurodermatitis Surgical History History of colonoscopy Hx of esophagogastroduodenoscopy Hx of tonsillectomy Hx of cholecystectomy H/O colonoscopy with polypectomy Family History Father Alcoholic Arthritis Mother Schizophrenia Heart failure Brother Hep C w/ coma, chronic Drug addict Cancer Other Mental health disorder Substance use disorder Social History Household Members: Friend(s) and None Housing: Other Alcohol intake: current Alcohol intake frequency: holidays/special occasions only Alcohol type: wine Patient Tobacco Use Status: Never used Tobacco Tobacco use type: Cigarette e-Cigarette/Vaping Use: Never Used Second Hand Smoke Exposure: No service: No Current occupational status: retired Cognitive needs: No Hearing needs: No Vision needs: No Review of Systems Const Denies fatigue, Denies fever(s), Denies night sweats, Denies poor appetite and Denies weight loss Eyes Details: Glasses Reports requires corrective lenses ENT Reports Normal hearing present, Denies dental pain, Denies dysphagia, Denies hearing loss, Denies mouth pain, Denies odynophagia, Denies throat swelling, Denies tongue swelling and Reports other (Dentition adequate) Card Reports no additional complaints Resp Reports no additional complaints GI Details: Denies abdominal pain, Denies melena, Denies bloating, Denies hematochezia, Denies constipation, Reports GI cramping, Denies dysphagia, Denies excessive flatus, Denies early satiety, Reports heartburn, Denies diarrhea, Reports loose stools, Denies nausea, Denies odynophagia, Denies vomiting and Denies hematemesis Skin/Breast Denies pruritus, Denies lesions, Denies rash and Denies jaundice Neuro Reports Normal hearing present and Denies Abnormal speech present Psych Reports anxiety Endo Denies fatigue Aller/Immun Denies throat swelling and Denies tongue swelling Physical Exam Vital Signs: Last Vital Signs Pulse 52 02/13/25 12:57 Pulse Ox 99 02/13/25 12:57 Oxygen Delivery Method Room Air 02/13/25 12:57 Const General: cooperative, no acute distress, well developed and well groomed Nutritional Appearance: average body habitus and well nourished Orientation/consciousness: oriented to person, oriented to place and oriented to time Limitations: No language barrier HEENT Head: Yes normocephalic and Yes atraumatic Eyes General: appearance normal, both eyes and all related structures Pupils: Equal, round and reactive pupils present Neck Neck: Yes normal visual inspection and Yes no lymphadenopathy Thyroid: Thyroid normal Resp Effort & Inspection: normal respiratory effort and able to speak in complete sentences Auscultation: clear to auscultation bilaterally Cardio Rate: regular rate Rhythm: regular rhythm Heart sounds: Normal, physiologic split S2 sound present Peripheral pulses: radial pulses present and posterior tibial pulses present GI Inspection: No distended and No Abdominal panniculus present Palpation (GI): Soft to palpation, nontender, no guarding, not rigid and No hepatosplenomegaly present Percussion: Yes normal to percussion Auscultation: normal bowel sounds Rectal Exam - Female: deferred Skin General skin exam: no rashes or lesions noted, turgor normal, skin not dry, no jaundice, No spider nevi and no striae Rashes: no rashes Nails: normal Neuro General: oriented to person, oriented to place and oriented to time Cranial nerves: Yes Equal, round and reactive pupils present and Yes Normal hearing present Speech: No Abnormal speech present Extrem General: Yes normal to inspection, No clubbing, No cyanosis and No edema Psych Appearance: grossly normal and well kempt Mental Status: mental status grossly normal Speech and movement: Normal speech and movement present Affect: normal affect Attitude: cooperative Thought process: Normal thought process present and not confabulating Thought content: Normal thought content present Insight: Good insight present (Psych) Judgement: Good judgement present (Psych) Assessment & Plan Assessment & Plan (1) GERD (gastroesophageal reflux disease): Code(s): K21.9 - Gastro-esophageal reflux disease without esophagitis Category: Medical Qualifiers: Esophagitis presence: without esophagitis Qualified Code(s): K21.9 - Gastro-esophageal reflux disease without esophagitis (2) Irritable bowel syndrome with constipation: Code(s): K58.1 - Irritable bowel syndrome with constipation Category: Medical Plan She continues on her omeprazole, simethicone, and Creon. She has also had dicyclomine in the past. - The patient is a 74 year old female presenting with worsening symptoms of Irritable Bowel Syndrome (IBS). - The patient reports exacerbation of IBS symptoms, characterized by increased frequency and urgency of bowel movements due to caregiving stress. - Previous treatment with dicyclomine was effective, although she was not sure if she should restart it but I recommend that this would be an appropriate course of action. - Reports stress-induced worsening of symptoms due to caregiving duties for a friend who recently had a stroke. Return office visit in 6 weeks Medications: New dicyclomine 20 mg PO TID 90 tabs 3RF Coding Level of Care Code Est Pt Level 3 (82023) Diagnoses Gastroesophageal reflux disease without esophagitis K21.9 Esophagitis presence: without esophagitis Irritable bowel syndrome with constipation K58.1
[2025-02-13 12:57] VITALS: PULSE 52; O2SAT 99
== END 2025-02-13 13:20 | disposition home or self-care (01) ==
LOC: HO.HGI 12:17
PROVIDERS: PCP Internal Medicine; Visit Provider Nurse Practitioner
DX: K21.9 Gastro-esophageal reflux disease without esophagitis (principal); K58.1 Irritable bowel syndrome with constipation
CPT/HCPCS: 99213

== ENCOUNTER → 2025-02-13 12:16 | Outpatient (BNVA) | payer MEDICARE, MEDICAID, SELFPAY | PROVIDERS: PCP Internal Medicine; Visit Provider Nurse Practitioner | DX: K21.9 Gastro-esophageal reflux disease without esophagitis (principal); K58.1 Irritable bowel syndrome with constipation | CPT/HCPCS: 99212 ==

== ENCOUNTER 2025-04-22 11:19 | Outpatient (AMB) | payer MEDICARE, MEDICAID, SELFPAY ==
[2025-04-22 11:40] VITALS: BP 158/60; PULSE 47; TEMP 36.3; O2SAT 99
--- NOTE | 2025-04-22 11:40 | A.OFFPC_ITS ---
Vital Signs 04/22/25 11:40 Height 5 ft BP 158/60 H Pulse 47 L Pulse Source Pulse Oximeter Temp 97.3 F Temp Source Temporal Artery Scan Pulse Oximetry (%) 99 Oxygen Delivery Method Room Air Comment Weight refused Intake Visit Reasons: AWV Review Engineer Required: No Accompanied by: Self / Same As Patient Allergies alcohol (ALCOHOL) Allergy (Unknown, Verified 04/22/25 11:40) ON SKIN - HIVES , SWELLING gluten (GLUTEN) Allergy (Unknown, Verified 04/22/25 11:40) HIVES lactose Allergy (Unknown, Verified 04/22/25 11:40) Rash latex (LATEX) Allergy (Unknown, Verified 04/22/25 11:40) HIVES,SWELLING mold Allergy (Unknown, Verified 04/22/25 11:40) HIVES yeast, dried (YEAST) Allergy (Unknown, Verified 04/22/25 11:40) HIVES cephalexin (From Keflex) Adverse Reaction (Intermediate, Verified 04/22/25 11:40) sleepy smoked meat Allergy (Mild, Uncoded 04/22/25 11:40) Hives Medication List - Last Reconciled 04/22/25 by Reynaldo Strong MD betamethasone dipropionate 0.05% appl topical jhsjfx-otkrbeaz-cqzakoo (pork) 6,000-19,000 -30,000 unit (Creon) 1 cap PO .TIDAC mupirocin 2% topical TID omeprazole 40 mg PO DAILY PRN simethicone (Gas Relief (simethicone)) 180 mg PO BID Tobacco use date assessed: 08/22/24 Dental Screening Dental Screen Date: 07/12/24 HPI AWV 2 HPI Details states in a lot of stress and the bp before is good. BP here is high. dizzy with meds HPI Comments History of Present Illness Details History of Present Illness The patient is a 74-year-old female presenting for an annual wellness visit. Her medical history includes tubular adenoma of the colon, with the last colonoscopy in 2020, GERD, bipolar disorder, hypercholesterolemia, irritable bowel syndrome, and osteoporosis, with her last bone density scan in February 2024. Regarding her gastrointestinal health, she was seen for an IBS follow-up in February and has an upcoming gastroenterology appointment in July 2025. Her omeprazole for GERD was previously increased from 20 mg to 40 mg once daily, which she takes as needed. She was prescribed Creon for IBS but does not take it regularly, only as needed. She recently experienced a sore throat with small white spots on her tonsils about three weeks ago, along with severe acid reflux, morning mucus in her lungs, and a persistent dry throat. For musculoskeletal issues, she follows up with an arthritis treatment center and was last seen in November 2024 for joint pains. Workup for inflammatory arthritis has been negative. An orthopedic consultation in October diagnosed left wrist arthritis and mild to moderate bilateral carpal tunnel syndrome confirmed by EMG, though a needle examination was refused. She was advised to take anti- inflammatories. The patient was seen in September for dizzy spells. Blood work at that time showed a normal blood count with no anemia, and normal electrolytes, renal function, blood sugar, and liver function. Her last cholesterol check in March 2024 showed an LDL of 120 mg/dL, and she has low vitamin D levels. A chest x-ray in September showed no acute findings but mild degenerative changes. Medication history reveals she has allergies to cephalexin (Keflex) and lactose, and also has neurodermatitis. She reports taking Creon, omeprazole, and simethicone only as needed. She reports she does not take loratadine (Claritin). Preventative health includes an up-to-date mammogram as of July 2024. She has completed her pneumonia shots and received a shingles vaccine three months ago. She declines the tetanus and flu shots. She refuses a colonoscopy due to a negative past experience and dehydration concerns with her IBS. Health Maintenance - Mammogram: Up to date, completed in [facility] 2024. - Colonoscopy: Last performed in 2020 wi th findings of a tubular adenoma. - Bone Density Scan: Last completed in [facility] 2023. - Eye Exam: Last performed two years ago . - Immunizations: Patient is up to date o n pneumonia and shingles vaccines. - Lifestyle: Discussion included the imp ortance of calcium and vitamin D intake and staying active. - Lab Monitoring: The most recent choles terol check was in March 2024, showing an LDL of 120 mg/dL. - Follow-up care: The patient has a foll ow-up with gastroenterology scheduled for July 2025. Social History - Substance Use: The patient denies smok ing. - Alcohol Use: The patient reports drink ing alcohol rarely, about once every six months. - Exercise: The patient reports she walk s and exercises a lot. - Diet: The patient reports she has one cup of coffee per day and has reduced her sugar intake. 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 Results - Lab work (September): Normal blood count wit h no anemia, normal electrolytes, renal function, blood sugar, and liver function. - Cholesterol (March 2024): LDL of 12 0 mg/dL. - Vitamin D: Low. - Thyroid function: Normal. - Inflammatory arthritis workup: Negativ e. - EMG: Mild to moderate bilateral carpal tunnel syndrome, without formal needle examination. - Chest X-ray (September): No acute findings, mild degenerative changes. [facility] Medical History Annual wellness visit Osteopenia Upper respiratory infection Adult general medical exam Irritable bowel syndrome with both constipation and diarrhea Urethritis Asthma Restrictive lung disease Cough Screening for diabetes mellitus Low back pain Acute sinusitis Irritable bowel syndrome with constipation Tubular adenoma of colon Hx of osteopenia Lumbar disc disease Bronchitis with flu GERD (gastroesophageal reflux disease) PTSD (post-traumatic stress disorder) Panic disorder History of chronic rhinitis Fibrocystic breast disease Osteoarthritis Hx of irritable bowel syndrome Neurodermatitis Surgical History History of colonoscopy Hx of esophagogastroduodenoscopy Hx of tonsillectomy Hx of cholecystectomy H/O colonoscopy with polypectomy Family History Father Alcoholic Arthritis Mother Schizophrenia Heart failure Brother Hep C w/ coma, chronic Drug addict Cancer Other Mental health disorder Substance use disorder Social History (Updated 04/22/25 @ 12:07 by Reynaldo Strong MD) Household Members: Friend(s) and None Housing: Other Alcohol intake: current Alcohol intake frequency: holidays/special occasions only Alcohol type: wine Comment: once Q 6 months Patient Tobacco Use Status: Never used Tobacco Tobacco use type: Cigarette e-Cigarette/Vaping Use: Never Used Second Hand Smoke Exposure: No service: No Current occupational status: retired Cognitive needs: No Hearing needs: No Vision needs: No Questionnaire Thrive Questionnaire Date Thrive assessed: 07/12/24 MEENU-7 AMB Questionnaire MEENU-7 Date MEENU - 7 assessed: 07/12/24 Source: Developed by Drs. Diogenes Emanuel, Mercy Khalil, Raman Madsen and colleagues, with an educational lisa from [employer]. Review of Systems Narrative Review of Systems - Constitutional: Denies fever. - HEENT: Reports a very dry throat, earaches in the winter, and high-pitched hearing loss. - Cardiovascular: Denies chest pain. - Respiratory: Reports mucus in the lungs in the morning. - Gastrointestinal: Reports severe acid reflux, occasional cramping with IBS, and better bowel movements than previously. - Genitourinary: Reports waking up once at night to urinate. - Musculoskeletal: Reports painful cramping in her legs. - Neurological: Reports dizzy spells, particularly when taking too much medicine. - Skin: Reports a skin condition with sores everywhere and neurodermatitis related to allergies. Const Denies poor appetite and Denies weakness Eyes Denies no additional complaints ENT Reports Normal hearing present, Denies dizziness, Denies nasal congestion, Denies tinnitus and Denies sore throat Card Denies chest pain, Denies syncope, Denies rapid heart rate and Denies dyspnea Resp Denies cough and Denies dyspnea GI Denies change in stool character, Reports constipation, Denies diarrhea, Denies nausea and Denies vomiting Denies urinary frequency, Denies difficulty voiding and Denies dysuria Neuro Reports Normal hearing present, Denies confusion, Denies dizziness, Denies syncope and Denies weakness Psych Denies confusion Physical exam (Primary Care) Vital Signs: Last Vital Signs Temp 97.3 F 04/22/25 11:40 Pulse 47 L 04/22/25 11:40 BP 158/60 H 04/22/25 11:40 Pulse Ox 99 04/22/25 11:40 Oxygen Delivery Method Room Air 04/22/25 11:40 Tobacco/Smoking Status: Tobacco use Status Tobacco use date assessed 08/22/24 04/22/25 11:49 Patient Tobacco Use Status Never used Tobacco 04/22/25 12:07 Tobacco use type Cigarette 04/22/25 12:07 e-Cigarette/Vaping Use Never Used 04/22/25 12:07 Thrive Assessment: Date of Thrive Assessment Date Thrive assessed 07/12/24 04/22/25 11:49 Narrative Physical Exam General: Cooperative, healthy appearing, comfortable, no acute distress and well developed Orientation: Patient oriented x3 Limitations: No limitations Head: Normal to inspection Ears: Hearing grossly normal bilaterally, but patient reports high-pitched hearing loss Nose: Normal external nose present Face and sinus: Normal facial exam Eyes: Appearance normal, both eyes and all related structures Neck: Normal visual inspection and Yes full ROM Respiratory: Normal respiratory effort and able to speak in complete sentences. Clear to auscultation bilaterally Cardiovascular: Regular rate and rhythm. Normal S1 and S2. 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 Soft to palpation and nontender. Patient reports severe acid reflux with a lot of mucus in the lungs and dry throat Skin: No rashes or lesions noted, but patient reports a skin condition from allergies and neurodermatitis Neuro: Patient oriented x3 Extremities: Normal to inspection, but patient reports mild to moderate bilateral carpal tunnel syndrome and cramping pain in legs Const General: No confusion Orientation/consciousness: No confusion HENMT Head: Yes normocephalic Ears: external ears normal and TM's normal bilaterally Face and sinus: Yes normal facial exam Mouth: moist mucous membranes Throat: Yes tonsils normal Eyes Conjunctivae: conjunctivae normal Pupils: Equal, round and reactive pupils present and Pupil accommodation reflex normal Direct Ophthalmoscopy: normal light reflex Neck Neck: No lymphadenopathy Thyroid: Thyroid normal Chest Chest palpation & inspection: normal inspection of the chest Resp Effort & Inspection: normal respiratory effort and no audible wheezes Auscultation: clear to auscultation bilaterally, no crackles, no wheezes and lung sounds not diminished Cardio Rate: regular rate Rhythm: regular rhythm Peripheral pulses: radial pulses present and dorsalis pedis present GI Other: declined Palpation (GI): no masses Auscultation: normal bowel sounds and normoactive bowel sounds Rectal Exam - Female: deferred Skin General skin exam: no rashes or lesions noted Rashes: no rashes Neuro General: No confusion Cranial nerves: Yes Equal, round and reactive pupils present and Yes Normal hearing present Cognition (Neuro): normal cognition Gait exam (Neuro): Normal gait present Motor exam (neuro): 5/5 motor strength present throughout Deep tendon reflexes (DTR's): Right brachioradialis reflex intensity grade: 2+, Left brachioradialis reflex intensity grade: 2+, Right patellar reflex intensity grade: 2+ and Left patellar reflex intensity grade: 2+ Extrem General: No edema Coding Level of Care Code Est Pt Prev Care >65y(41503) Diagnoses Medicare annual wellness visit, subsequent Z00.00 Bipolar 1 disorder F31.9 Hypercholesterolemia E78.00 Age related osteoporosis, unspecified pathological fracture presence M81.0 Osteoporosis type: age-related Presence of current pathological fracture: unspecified Gastroesophageal reflux disease without esophagitis K21.9 Esophagitis presence: without esophagitis Tubular adenoma of colon D12.6 Carpal tunnel syndrome on both sides G56.03 Mild intermittent asthma without complication J45.20 Asthma complication type: uncomplicated Asthma persistence: intermittent Asthma severity: mild Blood pressure elevated without history of HTN R03.0 Assessment & Plan Assessment & Plan (1) Medicare annual wellness visit, subsequent: Code(s): Z00.00 - Encounter for general adult medical examination without abnormal findings Category: Medical Plan: Patient is advised to eat healthy, keep well hydrated, keep active and have adequate sleep. (2) Bipolar 1 disorder: Comment: [facility] counselling once a week (12/2020) Code(s): F31.9 - Bipolar disorder, unspecified Category: Medical Plan: Continue to follow-up with psychiatry and counseling (3) Hypercholesterolemia: Code(s): E78.00 - Pure hypercholesterolemia, unspecified Category: Medical Plan: Avoid fried foods, chicken skin, eggs, butter margarine, pastries and meat. Be it pork or beef they have a lot of cholesterol LDL goal of less than 130 and triglyceride of less than 150 (4) Osteoporosis: Comment: February 2024 Code(s): M81.0 - Age-related osteoporosis without current pathological fracture Category: Medical Qualifiers: Osteoporosis type: age-related Presence of current pathological fracture: unspecified Qualified Code(s): M81.0 - Age-related osteoporosis without current pathological fracture Plan: Discussed about calcium and vitamin-D and keeping active (5) GERD (gastroesophageal reflux disease): Code(s): K21.9 - Gastro-esophageal reflux disease without esophagitis Category: Medical Qualifiers: Esophagitis presence: without esophagitis Qualified Code(s): K21.9 - Gastro-esophageal reflux disease without esophagitis Plan: Avoid the foods that causes that usually spicy foods, tomato products, juices, coffee, soda and foods that your sensitive to. After eating do not lie down, allow 3-4 hours before in lie down. And keep the head of bed above 30 degrees to avoid the acid from going up. (6) Tubular adenoma of colon: Comment: Last scope 2019 repeat in 5 years or 2024 aeb Code(s): D12.6 - Benign neoplasm of colon, unspecified Category: Medical Plan: Patient is up-to-date with colon testing (7) Carpal tunnel syndrome on both sides: Comment: December [id number] bilateral median neuropathy across carpal tunnel. 2. Mild bilateral ulnar neuropathy across cubital tunnel. Code(s): G56.03 - Carpal tunnel syndrome, bilateral upper limbs Category: Medical Plan: Discussed about management of carpal tunnel syndrome (8) Asthma: Comment: EPISODES OF FEELING LIKE BRONCHOSPASM, AND SOME MUCUS IN THE UPPER AIRWAYS, MOST LIKELY DUE TO MILD INTERMITTENT BRONCHOSPASMS . SHE IS EXPLAINED ABOUT THIS AND REASSURED. MAY USE 1 OR 2 PUFFS OF PROAIR ONLY P.R.N. WHEN SHE HAS THIS KIND OF EPISODE. Code(s): J45.909 - Unspecified asthma, uncomplicated Category: Medical Qualifiers: Asthma complication type: uncomplicated Asthma persistence: intermittent Asthma severity: mild Qualified Code(s): J45.20 - Mild intermittent asthma, uncomplicated Plan: Stable (9) Blood pressure elevated without history of HTN: Code(s): R03.0 - Elevated blood-pressure reading, without diagnosis of hypertension Category: Medical Plan: blood pressure to monitor Plan Plan Patient was informed and verbally consented to the use of an ambient scribe for clinic note documentation during this visit. 1. Annual Wellness Visit The patient will continue to follow up with psychiatry and counseling. She was advised to have her eyes checked, with an exam every two years being acceptable. 2. Hypertension The patient's blood pressure was elevated during the visit, which she attributes to stress. It was emphasized that high blood pressure can cause problems if left unmanaged. The plan is for the patient to return to the clinic for blood pressure checks. She will follow up in approximately three months to review a log of her blood pressure readings. 3. Hypercholesterolemia The goal for LDL cholesterol is less than 130 mg/dL and triglycerides less than 150 mg/dL. Fasting blood work, including a lipid panel, will be ordered for four months from now. 4. Sore Throat The patient reports a sore and dry throat, which on exam appeared related to allergies. It was recommended she take an allergy medication such as Lissette or Claritin. 5. Bilateral Carpal Tunnel Syndrome Management of carpal tunnel syndrome was discussed. 6. Gastroesophageal Reflux Disease The management plan was discussed, noting the patient is up to date with colon testing. 7. Osteoporosis A discussion was held regarding calcium and vitamin D intake and the importance of staying active. 8. Preventative Care The patient declined a colonoscopy, tetanus shot, and flu shot. The option of a shingles vaccine was discussed, noting it is available at the pharmacy. Discussion Notes I discussed the patient's elevated blood pressure reading and the importance of monitoring it, as leaving it untreated can lead to problems. We agreed that she would return to the clinic for blood pressure checks and follow up in three months to review the readings. I recommended she take an allergy medication like Lissette for her throat symptoms, which appeared related to allergies. I ordered fasting blood work to be done in four months, which she agreed to. We reviewed her immunizations; she has had the shingles and pneumonia vaccines but declined the tetanus and flu shots. The patient refused a colonoscopy and a rectal exam during this visit. Patient Instructions - Come back to the clinic to have your blood pressure checked regularly. - You have an order for fasting blood work to be done in about four months. - Follow up in the office in about three months to review your blood pressure re adings. - For your sore throat, you can take an [id number]-jtr-[id number] allergy medicine like Lissette or Claritin. - Continue to stay active and ensure you get enough calcium and vitamin D. - Get your eyes checked every one to two years. - Continue following up with your psychiatry and counseling providers. - The shingles vaccine is available at your pharmacy if you decide you want it. Orders: Orders Complete Blood Count Auto Diff 4 Months E78.00 - Pure hypercholesterolemia, unspecified Comprehensive Met. Panel 4 Months E78.00 - Pure hypercholesterolemia, unspecified Free T4 (Free Thyroxine) 4 Months E78.00 - Pure hypercholesterolemia, unspecified Lipid Panel 4 Months E78.00 - Pure hypercholesterolemia, unspecified Thyroid Stimulating Hormone 4 Months E78.00 - Pure hypercholesterolemia, unspecified Vitamin B12 and Folate 4 Months E78.00 - Pure hypercholesterolemia, unspecified Vitamin D 25-OH Total 4 Months E78.00 - Pure hypercholesterolemia, unspecified UA CC w/rflx Micro + Cult 4 Months E78.00 - Pure hypercholesterolemia, unspecified, R30.0 - Dysuria
== END 2025-04-22 12:27 | disposition home or self-care (01) ==
LOC: HO.HMCH 11:20
PROVIDERS: PCP Internal Medicine; Visit Provider Internal Medicine
DX: Z00.00 Encounter for general adult medical examination without abnormal findings (principal); F31.9 Bipolar disorder, unspecified; E78.00 Pure hypercholesterolemia, unspecified; M81.0 Age-related osteoporosis without current pathological fracture; K21.9 Gastro-esophageal reflux disease without esophagitis; D12.6 Benign neoplasm of colon, unspecified; G56.03 Carpal tunnel syndrome, bilateral upper limbs; J45.20 Mild intermittent asthma, uncomplicated; R03.0 Elevated blood-pressure reading, without diagnosis of hypertension

== ENCOUNTER → 2025-04-22 11:19 | Outpatient (BNVA) | payer MEDICARE, MEDICAID, SELFPAY | PROVIDERS: PCP Internal Medicine; Visit Provider Internal Medicine | DX: Z00.00 Encounter for general adult medical examination without abnormal findings (principal); M81.0 Age-related osteoporosis without current pathological fracture; F31.9 Bipolar disorder, unspecified; E78.00 Pure hypercholesterolemia, unspecified; D12.6 Benign neoplasm of colon, unspecified; G56.03 Carpal tunnel syndrome, bilateral upper limbs; J45.20 Mild intermittent asthma, uncomplicated; R03.0 Elevated blood-pressure reading, without diagnosis of hypertension | CPT/HCPCS: 99397 ==